=== PATIENT | male | born 1950 | race Caucasian/White ===

== ENCOUNTER 2017-05-01 18:16 | Emergency (ER) | payer OTHER ==
[~2017-05-01] VITALS: Ht 180.3 cm; Wt 84.0 kg
[~2017-05-01 18:16] MED LIST: ALBU.5I NEB; DIAZ2 PO; GLUCTAB PO; LIPI10TA PO; PRED10 PO; PRED20 PO; VARE1 PO; Z.0.OXYGEN INH
[2017-05-01 18:22] VITALS: BP 124/81; PULSE 91; RESP 20; TEMP 97.3; O2SAT 98
[2017-05-01] MEDS ORDERED: SODIUM CHLOR 0.9% 1000 ML INJ 1,000 ML IV SCH (18:36)
[2017-05-01] MEDS ORDERED: PRED5TAB PO (18:42)
[2017-05-01] MEDS ORDERED: ATOR1TAB18 PO (18:42)
[2017-05-01] MEDS ORDERED: ASPI81TA81 PO (18:42)
[2017-05-01] MEDS ORDERED: METF1000 PO (18:42)
[2017-05-01] MEDS ORDERED: LINA145C PO (18:42)
[2017-05-01] MEDS ORDERED: DIAZ5TAB PO (18:42)
[2017-05-01] MEDS ORDERED: DICY10CA12 PO (18:42)
[2017-05-01] MEDS ORDERED: ALBU.5I NEB (18:42)
[2017-05-01] MEDS ORDERED: FLUT1INH INH (18:44)
--- NOTE | 2017-05-01 18:44 | PD ---
HPI Chief Complaint: Flank/Kidney Pain Time Seen by Provider: 18:36 Travel History International Travel<30 days: No Contact w/Intl Traveler<30days: No Traveled to known affect area: No History of Present Illness HPI 66-year-old male presents with left-sided flank pain that feels similar to his prior kidney stones he's had before. He states his last one was in 2013. He states he had to have surgery 40 years ago when he had a stone and received a stent. He states he doesn't follow with a set urology specialist. Quality pain is sharp. Severity is severe. He denies specific modifying factors. He presents by ambulance. This is been over the past couple of days. PFSH Past Medical History Hx Anticoagulant Therapy: Yes (as 81mg) AAA: Yes (4 CM PER PT watching- had a MRA 2 months 02/2017 and was cleared) Arthritis: Yes (fingers,neck) Asthma: No Anxiety: Yes (PANIC ATTACKS) Depression: Yes Cardiovascular Problems: Yes High Cholesterol: Yes Chest Pain: Yes Congestive Heart Failure: No COPD: Yes Cerebrovascular Accident: No Diabetes: Yes (type 2) Patient Takes Glucophage: Yes Diminished Hearing: No Endocrine: Yes (kidneys) GERD: Yes (gas) Genitourinary: Yes Headaches: Yes Hypertension: Yes Kidney Stones: Yes Musculoskeletal: Yes Neurologic: No Psychiatric: Yes Reproductive: Yes Respiratory: Yes (copd with oxygen at home use) Immunizations Current: Yes Pneumonia: Yes Sleep Apnea: Yes Thyroid Disease: No Tetanus Vaccination: < 5 Years Influenza Vaccination: Yes Past Surgical History Abdominal Surgery: No Appendectomy: Yes Cardiac Surgery: No Ear Surgery: No Endocrine Surgery: No Eye Surgery: No Genitourinary Surgery: Yes (HAD LT URETER "STRETCHED AND KIDNEY STONES REMOVED (LEFT)) Gynecologic Surgery: No Neurologic Surgery: No Oral Surgery: No Thoracic Surgery: No Tonsillectomy: Yes Other Surgery: Yes (SURGERY) Social History Alcohol Use: No Tobacco Use: No (1 ppd cigs) Substance Use: No Allergies-Medications (Allergen,Severity, Reaction): Coded Allergies: No Known Allergies (Verified , 05/01/17) Reported Meds & Prescriptions Reported Meds & Active Scripts Active Reported [oxygen at home] 2-4 Liter KARINA.CANULA DIRECTED Breo Ellipta Inh (Fluticasone/Vilanterol) 100-25 Mcg/Act Inh 1 Puff INH DAILY Use daily at the same time. Diazepam 5 Mg Tab 5 Mg PO TID PRN Dicyclomine (Dicyclomine HCl) 10 Mg Cap 10 Mg PO QID PRN Linzess (Linaclotide) 145 Mcg Cap 145 Mcg PO DIRECTED PRN Atorvastatin (Atorvastatin Calcium) 80 Mg Tab 80 Mg PO HS Prednisone 5 Mg Tab 5 Mg PO HS Aspir-81 (Aspirin) 81 Mg Tabdr 1 Tab PO DAILY Metformin (Metformin HCl) 1,000 Mg Tab 1,000 Mg PO BIDPC With meals Albuterol Neb (Albuterol Sulfate) 2.5 Mg/0.5 Ml Neb 2.5 Mg NEB Q4HR NEB PRN Note: The Albuterol Sulfate Inhalation Solution is concentrated and must be diluted. Read complete instructions carefully before using. Review of Systems Except as stated in HPI: all other systems reviewed are Neg Physical Exam Narrative GENERAL: Well-nourished, well-developed patient. Uncomfortable SKIN: Warm and dry. HEAD: Normocephalic and atraumatic. EYES: No injection or drainage. ENT: No nasal drainage noted. NECK: Supple, trachea midline. CARDIOVASCULAR: Regular rate and rhythm RESPIRATORY: No increased effort. No accessory muscle use. GASTROINTESTINAL: Abdomen soft, tender left upper quadrant, nondistended. EXTREMITIES: No edema. NEUROLOGICAL: Awake and alert. Motor and sensory grossly within normal limits. Normal speech. Data Data Last Documented VS Vital Signs Date Time Temp Pulse Resp B/P Pulse Ox O2 Delivery O2 Flow Rate FiO2 05/01/17 19:00 18 97 Nasal Cannula 2 05/01/17 19:00 91 124/81 05/01/17 18:22 97.3 Orders Complete Blood Count With Diff (05/01/17 18:36) Comprehensive Metabolic Panel (05/01/17 18:36) Lipase (05/01/17 18:36) Urinalysis - C+S If Indicated (05/01/17 18:36) Ct Abd/Pel W/O Iv Contrast (05/01/17 18:36) Iv Access Insert/Monitor (05/01/17 18:36) Ecg Monitoring (05/01/17 18:36) Oximetry (05/01/17 18:36) NPO (05/01/17 18:36) Ondansetron Inj (Zofran Inj) (05/01/17 18:45) Sodium Chlor 0.9% 1000 Ml Inj (Ns 1000 M (05/01/17 18:36) Sodium Chloride 0.9% Flush (Ns Flush) (05/01/17 18:45) Ketorolac Inj (Toradol Inj) (05/01/17 18:45) MDM Medical Decision Making Medical Screen Exam Complete: Yes Emergency Medical Condition: Yes Medical Record Reviewed: Yes (past history confirmed) Differential Diagnosis Stone, pyelonephritis, pancreatitis, musculoskeletal Narrative Course Will check blood work, urinalysis, CT scan and dose with Toradol and reevaluate Physician Communication Physician Communication dr hayes to follow ed workup and reeval Kesha Palomares MD May 01, 2017 18:44
[2017-05-01] MEDS ORDERED: SODIUM CHLORIDE 0.9% FLUSH 10 ML FLUSH IV FLUSH PRN (18:45)
[2017-05-01] MEDS ORDERED: KETOROLAC TROMETHAMINE 30 MG/ML (IVP) VIAL IVP ONE (18:45)
[2017-05-01] MEDS ORDERED: ONDANSETRON HCL 4 MG/2 ML VIAL IVP ONE (18:45)
[2017-05-01] MEDS ORDERED: OXYGEN NAS.CANULA (18:46)
[2017-05-01 19:00] VITALS: BP 124/81; PULSE 91; RESP 18; O2SAT 97
[2017-05-01 19:02] LABS: AUTOMATED NEUTROPHIL # 10.5 TH/MM3 (1.8-7.7); BASOPHIL # 0.1 TH/MM3 (0-0.2); BASOPHIL % 0.7 % (0.0-2.0); EOSINOPHIL # 0.4 TH/MM3 (0-0.4); EOSINOPHIL % 3.2 % (0.0-4.0); HEMATOCRIT 40.1 % (39.0-51.0); LYMPH % 13.2 % (9.0-44.0); LYMPHOCYTE # 1.8 TH/MM3 (1.0-4.8); MEAN CELL VOLUME 85.6 FL (80.0-100.0); MEAN CORPUSCULAR HEMOGLOBIN 28.1 PG (27.0-34.0); MEAN CORPUSCULAR HGB CONC 32.8 % (32.0-36.0); MONO % 7.2 % (0.0-8.0); NEUT % 75.7 % (16.0-70.0); PLATELET COUNT 259 TH/MM3 (150-450); RED BLOOD COUNT 4.69 MIL/MM3 (4.50-5.90); RED CELL DISTRIBUTION WIDTH 13.6 % (11.6-17.2); WHITE BLOOD COUNT 13.8 TH/MM3 (4.0-11.0)
[2017-05-01 19:06] LABS: HEMO FLAGS DIFF FINAL
[2017-05-01 19:10] LABS: CHLORIDE 107 MEQ/L (98-107); POTASSIUM 3.7 MEQ/L (3.5-5.1); SODIUM (NA) 143 MEQ/L (136-145)
[2017-05-01 19:14] LABS: ANION GAP 7 MEQ/L (5-15); BICARBONATE 28.7 MEQ/L (21.0-32.0); BLOOD UREA NITROGEN 14 MG/DL (7-18)
[2017-05-01 19:16] LABS: ALT (GPT) 25 U/L (12-78); AST (GOT) 17 U/L (15-37)
[2017-05-01 19:17] LABS: GLOMERULAR FILTRATION RATE 92 ML/MIN (>89)
[2017-05-01 19:18] LABS: TOTAL BILIRUBIN ADULT 0.4 MG/DL (0.2-1.0)
--- NOTE | 2017-05-01 19:18 | PD ---
Physical Exam Date Seen by Provider: May 01, 2017 Time Seen by Provider: 19:14 Narrative accepted in transfer of care from Dr Palomares GENERAL: Well-developed well-nourished male in no acute distress no respiratory distress with supplemental oxygen in place with history of COPD. SKIN: Warm and dry. HEAD: Normocephalic. EYES: No scleral icterus. No injection or drainage. NECK: Supple, trachea midline. No JVD or lymphadenopathy. CARDIOVASCULAR: Regular rate and rhythm without murmurs, gallops, or rubs. RESPIRATORY: Breath sounds equal bilaterally. No accessory muscle use. GASTROINTESTINAL: Abdomen soft, mild left lower quadrant tenderness to direct palpation without guarding or rebound, nondistended. No palpable pulsatile mass. MUSCULOSKELETAL: No cyanosis, or edema. Bilaterally palpable dorsalis pedis pulses. BACK: Nontender without obvious deformity. Mild left-sided CVA tenderness. Data Data Last Documented VS Vital Signs Date Time Temp Pulse Resp B/P Pulse Ox O2 Delivery O2 Flow Rate FiO2 05/01/17 22:25 96 20 122/64 96 Nasal Cannula 2 05/01/17 18:22 97.3 Orders Complete Blood Count With Diff (05/01/17 18:36) Comprehensive Metabolic Panel (05/01/17 18:36) Lipase (05/01/17 18:36) Urinalysis - C+S If Indicated (05/01/17 18:36) Ct Abd/Pel W/O Iv Contrast (05/01/17 18:36) Iv Access Insert/Monitor (05/01/17 18:36) Ecg Monitoring (05/01/17 18:36) Oximetry (05/01/17 18:36) NPO (05/01/17 18:36) Ondansetron Inj (Zofran Inj) (05/01/17 18:45) Sodium Chlor 0.9% 1000 Ml Inj (Ns 1000 M (05/01/17 18:36) Sodium Chloride 0.9% Flush (Ns Flush) (05/01/17 18:45) Ketorolac Inj (Toradol Inj) (05/01/17 18:45) Type And Screen (05/01/17 19:46) Sodium Chlorid 0.9% 500 Ml Inj (Ns 500 M (05/01/17 20:00) Morphine Inj (Morphine Inj) (05/01/17 20:00) Morphine Inj (Morphine Inj) (05/01/17 20:00) Albuterol-Ipratropium Neb (Duoneb Neb) (05/01/17 20:30) Tamsulosin (Flomax) (05/01/17 21:30) Morphine Inj (Morphine Inj) (05/01/17 22:00) Urine Culture (05/01/17 22:15) Blood Culture (05/01/17 22:42) Ceftriaxone Inj (Rocephin Inj) (05/01/17 22:45) Labs Laboratory Tests Test 05/01/17 05/01/17 05/01/17 18:50 20:00 22:15 White Blood Count 13.8 TH/MM3 Red Blood Count 4.69 MIL/MM3 Hemoglobin 13.2 GM/DL Hematocrit 40.1 % Mean Corpuscular Volume 85.6 FL Mean Corpuscular Hemoglobin 28.1 PG Mean Corpuscular Hemoglobin 32.8 % Concent Red Cell Distribution Width 13.6 % Platelet Count 259 TH/MM3 Mean Platelet Volume 8.9 FL Neutrophils (%) (Auto) 75.7 % Lymphocytes (%) (Auto) 13.2 % Monocytes (%) (Auto) 7.2 % Eosinophils (%) (Auto) 3.2 % Basophils (%) (Auto) 0.7 % Neutrophils # (Auto) 10.5 TH/MM3 Lymphocytes # (Auto) 1.8 TH/MM3 Monocytes # (Auto) 1.0 TH/MM3 Eosinophils # (Auto) 0.4 TH/MM3 Basophils # (Auto) 0.1 TH/MM3 CBC Comment DIFF FINAL Differential Comment Sodium Level 143 MEQ/L Potassium Level 3.7 MEQ/L Chloride Level 107 MEQ/L Carbon Dioxide Level 28.7 MEQ/L Anion Gap 7 MEQ/L Blood Urea Nitrogen 14 MG/DL Creatinine 0.83 MG/DL Estimat Glomerular Filtration 92 ML/MIN Rate Random Glucose 128 MG/DL Calcium Level 9.0 MG/DL Total Bilirubin 0.4 MG/DL Aspartate Amino Transf 17 U/L (AST/SGOT) Alanine Aminotransferase 25 U/L (ALT/SGPT) Alkaline Phosphatase 89 U/L Total Protein 6.6 GM/DL Albumin 2.8 GM/DL Lipase 88 U/L Blood Type O POSITIVE Antibody Screen NEGATIVE Blood Bank Comment Urine Color YELLOW Urine Turbidity CLOUDY Urine pH 5.5 Urine Specific [place] 1.025 Urine Protein 30 mg/dL Urine Glucose (UA) NEG mg/dL Urine Ketones NEG mg/dL Urine Occult Blood LARGE Urine Nitrite NEG Urine Bilirubin NEG Urine Leukocyte Esterase TRACE Urine RBC 100-200 /hpf Urine WBC 6-8 /hpf Urine WBC Clumps OCC Urine Squamous Epithelial 0-5 /hpf Cells Urine Amorphous Sediment MOD Urine Bacteria FEW /hpf Microscopic Urinalysis Comment CULTURE INDICATED MDM Medical Record Reviewed: Yes Supervised Visit with JULIANA: No Interpretation(s) Last Impressions Abdomen/Pelvis CT 05/01/17 1836 Signed Impressions: Service Date/Time: Saturday, May 01, 2017 20:04 - CONCLUSION: 1. Left-sided obstructive uropathy with moderate left hydronephrosis. 3 mm calculus at the left UVJ and 1 mm calculus in left ureter at upper pelvis. Also 2-3 mm calculus within left renal pelvis. Additional small nonobstructing calculi in both kidneys. Small right renal cyst. 2. 4.4 cm infrarenal abdominal aortic aneurysm increased from 4 cm in 2013. Manjeet Palencia MD CBC & BMP Diagram 05/01/17 18:50 Vital Signs Date Time Temp Pulse Resp B/P Pulse Ox O2 Delivery O2 Flow Rate FiO2 05/01/17 20:55 94 20 111/69 97 Nasal Cannula 2 05/01/17 20:12 20 05/01/17 20:10 95 18 105/78 98 Nasal Cannula 2 05/01/17 19:55 18 05/01/17 19:00 18 97 Nasal Cannula 2 05/01/17 19:00 91 18 124/81 97 Nasal Cannula 2 05/01/17 18:30 87 18 05/01/17 18:22 97.3 91 20 124/81 98 Differential Diagnosis accepted in transfer of care from Dr Palomares Narrative Course accepted in transfer of care from Dr Palomares; follow up CT and patient disposition It is 9:25 PM patient is clinically improved after receiving morphine 2 mg IV as well as previously had received Zofran 4 mg IV and Toradol 30 mg IV; patient also received 500 cc bolus of normal saline. CT abdomen and pelvis is consistent with left-sided hydroureter with obstructive uropathy with a 3 mm UVJ stone also noted proximal ureter a 1 mm ureterolithiasis and 2 mm left lower pole nephrolithiasis. Patient has been informed of imaging results as well as CT imaging noncontrast identifies a 4.4 cm infrarenal abdominal aortic aneurysm this is increased 0.[address] abdomen and pelvis noncontrast performed in 2014; patient reports that he recently underwent an MRA of the abdomen and pelvis and was identified to have a 4 cm infrarenal abdominal aortic aneurysm. This is being followed. There is no other acute findings on imaging per reading radiologist. Patient has required a one-time nebulize treatment as it was time for his evening albuterol and reports that he has no respiratory complaints at this time. Patient reports his left lower quadrant discomfort as minimal. Patient will be given a one-time dose of Flomax 0.4 mg in the emergency department. Patient still has not provided a urine specimen. Will be given additional fluids and UA will to be sent. Refuses in/out cath. @ 22:15 PM patient finally able to produce urine specimen Diagnosis Primary Impression: Renal colic on left side Additional Impressions: Lower obstructive uropathy UTI (urinary tract infection) Qualified Code: N39.0 - Urinary tract infection with hematuria, site unspecified History of COPD H/O abdominal aortic aneurysm Referrals: Primary Care Physician 1 day follow up with Dr Briseno Urologist call for appointment bingo caller urologist Dr Hays Vascular Surgeon call for appointment Follow up with your vascular surgeon or dean of instruction vascular surgeon Dr Ng Patient Instructions: General Instructions, Narcotic given in the ED Additional Instruction: Increase fluid hydration Strain urine Continue current medications as presently prescribed Stop/discontinue tobacco use as this is contraindicated with history of COPD and vascular disease/AAA Follow-up with your primary care provider call office in a.m.; follow-up with your vascular surgeon regarding your aneurysm and follow-up with urology regarding kidney stones Take pain medication as prescribed as tolerated for pain greater than 5/10 in intensity; be aware this may impair judgment, delay reaction time, increased risk for fall, or affect your condition of constipation; also may interact with anxiety medication --start at half dose; may depress respirations. Take Flomax as prescribed daily; may lower blood pressure Takes Zofran as prescribed as needed for nausea or vomiting Complete course of antibiotic Return to the emergency department for any concerns or change in condition Monitor temperature every 4 hours with thermometer and take Tylenol/ acetaminophen every 4 hours for fever 100.4 F or greater Med/Other Pt SpecificInfo: Prescription(s) given Scripts Tamsulosin (Flomax)0.4 Mg Cap0.4 Mg PO HS #7 CAP Ref 0 Prov:Lotus Hamilton MD 05/01/17 Hydrocodone-Acetaminophen (Lortab)5-325 Mg Tab1 Tab PO Q6H PRN (PAIN) #12 TAB Ref 0 Prov:Lotus Hamilton MD 05/01/17 Ondansetron Odt (Zofran Odt)4 Mg Tab4 Mg SL Q6HR PRN (Nausea/Vomiting) #10 TAB Ref 0 Prov:Lotus Hamilton MD 05/01/17 Doxycycline Hyclate 100 Mg [id number] Mg PO BID #14 CAP Ref 0 Prov:Lotus Hamilton MD 05/01/17 Disposition: 01 DISCHARGE HOME Condition: Stable Lotus Hamilton MD May 01, 2017 19:18
[2017-05-01 19:19] LABS: ALKALINE PHOSPHATASE 89 U/L (45-117)
[2017-05-01] MEDS ORDERED: SODIUM CHLORID 0.9% 500 ML INJ 500 ML IV ONE (20:00)
[2017-05-01] MEDS ORDERED: MORPHINE SULFATE 4 MG/ML INJ IV PUSH ONE ×2 (20:00→21:45)
[2017-05-01] MEDS ORDERED: MORPHINE SULFATE 8 MG/ML INJ IV PUSH ONE ×2 (20:00→22:00)
[2017-05-01 20:10] VITALS: BP 105/78; PULSE 95; RESP 18; O2SAT 98
[2017-05-01] MEDS ORDERED: RESP: ALBUTEROL 2.5 MG/IPRATROPIUM 0.5 MG NEB (SCH) NEB ONE (20:30)
--- NOTE | 2017-05-01 20:50 | RADRPT ---
EXAM DATE/TIME: 05/01/2017 20:04 [facility] COMPARISON: No previous studies available for comparison. INDICATIONS : Left flank abdominal pain. ORAL CONTRAST: No oral contrast ingested. RADIATION DOSE: 20.06 CTDIvol (mGy) MEDICAL HISTORY : Renal calculi. Aneurysm, abdominal. Hypertension.Diabetes. SURGICAL HISTORY : None. ENCOUNTER: Initial ACUITY: 1 day PAIN SCALE: 9/10 LOCATION: Left flank TECHNIQUE: Volumetric scanning of the abdomen and pelvis was performed. Using automated exposure control and ad justment of the mA and/or kV according to patient size, radiation dose was kept as low as reasonably achievable to obtain optimal diagnostic quality images. DICOM format image data is available electro nically for review and comparison. FINDINGS: There is moderate left-sided hydronephrosis. There is an approximately 3 mm calculus at the left uret erovesical junction and a tiny 1 mm calculus in the left ureter within the upper pelvis. There is als o a 2 mm to 3 mm calculus in the dilated left renal pelvis which appears to be nonobstructing. There are additional 1-3 mm nonobstructing calculi in both kidneys. No hydronephrosis on the right. There is a 4.4 cm infrarenal abdominal aortic aneurysm increased from previous measurement of 4 cm in August 2014. No acute findings in the liver spleen adrenals or pancreas. No calcified gallstones. No bowel obstruc tion. No free fluid or free air. CONCLUSION: 1. Left-sided obstructive uropathy with moderate left hydronephrosis. 3 mm calculus at the left UVJ a nd 1 mm calculus in left ureter at upper pelvis. Also 2-3 mm calculus within left renal pelvis. Addit ional small nonobstructing calculi in both kidneys. Small right renal cyst. 2. 4.4 cm infrarenal abdominal aortic aneurysm increased from 4 cm in 2014. Manjeet Palencia MD on May 01, 2017 at 20:43 Board Certified Radiologist. This report was verified electronically.
[2017-05-01 20:55] VITALS: BP 111/69; PULSE 94; RESP 2; RESP 20; O2SAT 97
[2017-05-01] MEDS ORDERED: TAMSULOSIN HCL 0.4 MG CAP PO ONE (21:30)
[2017-05-01 22:25] VITALS: BP 122/64; PULSE 96; RESP 20; O2SAT 96
[2017-05-01 22:30] LABS: BLOOD, URINE LARGE (NEG); GLUCOSE,URINE NEG (NEG); KETONE, URINE NEG (NEG); NITRITE,URINE NEG (NEG); PH, URINE 5.5 (5.0-8.5)
[2017-05-01 22:38] LABS: URINE COLOR YELLOW (YELLW/STRAW)
[2017-05-01 22:39] LABS: BACTERIA, URINE FEW /hpf; COMMENT (UR) CULTURE INDICATED; CULTURE IF INDICATED CULTURE INDICATED; RBC, URINE 100-200 /hpf (0-3); SQUAMOUS EPITHELIAL CELL URINE 0-5 /hpf (0-5)
[2017-05-01] MEDS ORDERED: cefTRIAXone INJ 1,000 MG in SODIUM CHLORIDE 0.9% INJ 100 ML IV ONE (22:45)
[2017-05-01] MEDS ORDERED: TAMS5CAP PO (22:52)
[2017-05-01] MEDS ORDERED: DOXY100C PO (22:52)
[2017-05-01] MEDS ORDERED: ZOFR4TAB3 SL (22:52)
[2017-05-01] MEDS ORDERED: HYDR-3533 PO (22:52)
[2017-05-01 23:34] VITALS: BP 122/64
== END 2017-05-01 23:46 | disposition home or self-care (01) ==
LOC: PHED 18:16
DX: N23 Unspecified renal colic (principal); N13.8 Other obstructive and reflux uropathy; N39.0 Urinary tract infection, site not specified; R31.9 Hematuria, unspecified; I10 Essential (primary) hypertension; E11.9 Type 2 diabetes mellitus without complications; E78.00 Pure hypercholesterolemia, unspecified; Z79.82 Long term (current) use of aspirin; Z79.84 Long term (current) use of oral hypoglycemic drugs; Z87.09 Personal history of other diseases of the respiratory system; Z86.79 Personal history of other diseases of the circulatory system; Z87.39 Personal history of other diseases of the musculoskeletal system and connective tissue; Z87.442 Personal history of urinary calculi; Z86.59 Personal history of other mental and behavioral disorders; Z87.19 Personal history of other diseases of the digestive system; Z99.81 Dependence on supplemental oxygen
CPT/HCPCS: 74176; 80053; 81001; 83690; 85025; 86850; 86900; 86901; 87040; 87086; 94664; 96361; 96365; 96375; 96376; 99285; J0696; J1885; J2270; J2405; J7030; J7040

== ENCOUNTER 2018-07-13 17:04 | Inpatient (IN) ==
[2018-07-13] MEDS ORDERED: Magnesium Sulfate Inj 2 GM in Sodium Chlor 0.9% Inj 96 ML IV.SIG ONE (17:12)
--- NOTE | 2018-07-13 17:33 | XR ---
EXAM DATE: 07/13/2018 5:28 PM EDT AGE/SEX: 67 years / Male INDICATIONS: Respiratory disease. CLINICAL DATA: This is the patient's initial encounter. Patient reports that signs and symptoms have been present for 3 days and indicates a pain score of 0/10. MEDICAL/SURGICAL HISTORY: . Renal calculi. Aneurysm, abdominal. Hypertension. Diabetes. None. COMPARISON: [facility], CHEST SINGLE AP, 09/05/2015. . FINDINGS: 2 portable frontal views of the chest show bolus emphysematous changes. Some chronic interstitial ernie nge noted within the bases bilaterally. Lungs are hyper aerated. No infiltrates or effusions. Heart i s normal in size. Bony structures are unremarkable. CONCLUSION: Bullous emphysematous changes and chronic interstitial change. No acute cardiopulmonary disease. Electronically signed by: Morteza Mccoy MD 07/13/2018 5:32 PM EDT
[2018-07-13 17:36] LABS: ABG Base Excess -0.9 mmol/L (-2-2); ABG PCO2 36 mmHg (38-42); ABG PO2 131 mmHg (61-120)
--- NOTE | 2018-07-13 17:43 | ED ---
HPI General Chief complaint: Shortness of Breath/Dyspnea Stated complaint: Respitory Time Seen by Provider: 07/13/18 17:06 Source: patient, EMS and RN notes reviewed Mode of arrival: EMS Limitations: physical limitation (respiratory distress) History of Present Illness HPI narrative: 67yM presenting with respiratory distress. The patient has a history of COPD and has been short of breath for several days; he received a duoneb, albuterol neb, and solumedrol prior to arrival to the ED. The patient arrived to the ED in visible distress; further details of HPI are therefore limited. Related Data Home Medications Medication Instructions Recorded Confirmed aspirin [Aspirin Low Dose] 81 mg PO DAILY 07/13/18 07/13/18 atorvastatin 80 mg PO DAILY 07/13/18 07/13/18 diazepam 5 mg PO TID 07/13/18 07/13/18 dicyclomine 10 mg PO QID 07/13/18 07/13/18 linaclotide [Linzess] 145 mcg PO DAILY 07/13/18 07/13/18 metformin 1,000 mg PO BID 07/13/18 07/13/18 prednisone 10 mg PO DAILY 07/13/18 07/13/18 varenicline [Chantix] 1 mg PO BID 07/13/18 07/13/18 Allergies Allergy/AdvReac Type Severity Reaction Status Date / Time No Known Allergies Allergy Uncoded 05/01/17 18:27 Review of Systems ROS Unobtainable ROS Unobtainable: other (unobtainable due to respiratory distress requiring bipap) PMFSH History History Provided By: Patient Medical History Medical History COPD (chronic obstructive pulmonary disease) (Acute) Diabetes (Acute) HTN (hypertension) (Acute) Social History Social History Substance History: No History of Abuse Smoking Status: Former smoker Tobacco Type: Cigarettes How Often Do You Have a Drink Containing Alcohol: Never Recent Travel in [facility] within the Last 8 Weeks: No Recent Out of Country Travel within the Last 8 Weeks: No Exam Const General: acute distress and ill appearing [facility] Head: normocephalic and atraumatic Eyes General: appearance normal, both eyes and all related structures Pupils: PERRL Chest Chest: normal inspection of the chest Resp Other: Tachypneic to 30s, speaking in 2-3 word phrases, increased work of breathing with accessory muscle use and intercostal retractions Full-field expiratory wheezing bilaterally Cardio Rate: tachycardic Rhythm: regular rhythm GI Inspection: non-distended Palpation: soft and nontender Skin General: no rashes or lesions noted Neuro General: alert and awake Extrem Other: No lower extremity edema Psych Affect: normal affect Course Initial Documented Vital Signs Pulse Oximetry 98 07/13/18 17:16 Last Documented Vital Signs Temperature 98.1 F 07/13/18 17:31 Pulse Rate 138 H 07/13/18 17:31 Respiratory Rate 46 H 07/13/18 17:31 Blood Pressure 157/100 H 07/13/18 17:31 Pulse Oximetry 98 07/13/18 17:37 Critical Care Time Critical Care Time: Yes Total Critical Care Time: 32 Attestation: Total critical care time 32 minutes. This includes examining and stabilizing the patient, gathering a history from a source other than the patient (i.e., chart review, EMS), formulating a differential diagnosis, ordering and interpreting laboratory tests and EKG, ordering and interpreting radiology tests, discussing the patient's care with other providers ([facility]), management of respiratory distress via non-invasive ventilation, re-evaluation at frequent intervals, and documentation. Amount of time is separate from teaching, counseling the patient and/or family, and exclusive of procedures. Medical Decision Making MDM Narrative Medical decision making narrative: Assessment: 67yM presenting with respiratory distress Plan: Nebs, IV magnesium Patient already received steroids prior to arrival Bipap CXR EKG and monitor Labs, including ABG Addendum: Patient re-evaluated multiple times during his stay in the ED. He remains tachypneic but wheezing is improved. His HR remains in the 110s/ 120s and his resps are 30s/minute. X-ray shows no infiltrate, labs essentially unremarkable aside from elevated lactic acid (likely related to multiple neb treatments). This patient requires ICU level of care for respiratory distress and severe COPD exacerbation; he remains at high risk for respiratory fatigue/ failure. Case discussed with Dr. Begum. Patient understands and agrees with plan of care. Medical Screen Exam Complete: Yes Emergency Medical Condition: Yes Differential Diagnosis Differential Diagnosis: Differential diagnosis includes, but is not limited to: COPD exacerbation, respiratory failure, pneumonia, pleural effusion, ACS, sepsis Medical Records Medical records reviewed: Yes I reviewed the patient's medical records. Lab Data Lab results reviewed: Yes I reviewed the patient's lab results. Result diagrams: 07/13/18 17:17 07/13/18 17:17 Lab Results 07/13/18 07/13/18 07/13/18 Range/Units 17:15 17:17 17:17 WBC 11.1 H (4.0-11.0) th/mm3 RBC 4.94 (4.50-5.90) mil/mm3 Hgb 13.2 (13.0-17.0) gm/dL Hct 40.1 (39.0-51.0) % MCV 81.3 (80.0-100.0) fL MCH 26.7 L (27.0-34.0) pg MCHC 32.9 (32.0-36.0) % RDW 17.5 H (11.6-17.2) % Plt Count 245 (150-450) th/mm3 MPV 8.4 (7.0-11.0) fL Neut % (Auto) 88.9 H (16.0-70.0) % Lymph % (Auto) 5.0 L (9.0-44.0) % [place] % (Auto) 5.8 (0.0-8.0) % Eos % (Auto) 0.1 (0.0-4.0) % Baso % (Auto) 0.2 (0.0-2.0) % Neut # (Auto) 9.9 H (1.8-7.7) th/mm3 Lymph # (Auto) 0.6 L (1.0-4.8) th/mm3 [place] # (Auto) 0.6 (0.0-0.9) th/mm3 Eos # (Auto) 0.0 (0.0-0.4) th/mm3 Baso # (Auto) 0.0 (0.0-0.2) th/mm3 WBC Differential . Differential Comment Auto diff final Puncture Site Right radial Patient Temperature 98.6 O2 Saturation 97 (90-100) % ABG pH 7.43 H (7.380-7.420) ABG pCO2 36 L (38-42) mmHg ABG pO2 131 H (61-120) mmHg ABG HCO3 23 (22-26) mmol/L ABG O2 Content 18.7 (12.0-20.0) Vol % ABG Base Excess -0.9 (-2-2) mmol/L ABG Methemoglobin 0.3 (0-2) % Saurav Test Present Hemoglobin 13.5 (12.0-16.0) G/DL Carboxyhemoglobin 1.3 (0-4) % O2 Delivery Device Bipap Vent Setting [id number] Inspired O2 40 % Critical Value No Sodium 140 (136-145) meq/L Potassium 4.5 (3.5-5.1) meq/L Chloride 104 (98-107) meq/L Carbon Dioxide 24.9 (21.0-32.0) meq/L Anion Gap 11 (5-15) meq/L BUN 26 H (7-18) mg/dL Creatinine 0.93 (0.60-1.30) mg/dL Estimated GFR 81 L (>89) mL/min Random Glucose 193 H (74-106) mg/dL Lactic Acid (0.4-2.0) mmol/L Calcium 8.9 (8.5-10.1) mg/dL Magnesium 2.1 (1.5-2.5) mg/dL Total Bilirubin 0.3 (0.2-1.0) mg/dL AST 27 (15-37) U/L ALT 29 (12-78) U/L Alkaline Phosphatase 90 (45-117) U/L Troponin I Less than 0.02 L (0.02-0.05) ng/mL B-Natriuretic Peptide (0-100) pg/mL Total Protein 7.5 (6.4-8.2) g/dL Albumin 3.0 L (3.4-5.0) g/dL 07/13/18 07/13/18 Range/Units 17:17 17:17 WBC (4.0-11.0) th/mm3 RBC (4.50-5.90) mil/mm3 Hgb (13.0-17.0) gm/dL Hct (39.0-51.0) % MCV (80.0-100.0) fL MCH (27.0-34.0) pg MCHC (32.0-36.0) % RDW (11.6-17.2) % Plt Count (150-450) th/mm3 MPV (7.0-11.0) fL Neut % (Auto) (16.0-70.0) % Lymph % (Auto) (9.0-44.0) % [place] % (Auto) (0.0-8.0) % Eos % (Auto) (0.0-4.0) % Baso % (Auto) (0.0-2.0) % Neut # (Auto) (1.8-7.7) th/mm3 Lymph # (Auto) (1.0-4.8) th/mm3 [place] # (Auto) (0.0-0.9) th/mm3 Eos # (Auto) (0.0-0.4) th/mm3 Baso # (Auto) (0.0-0.2) th/mm3 WBC Differential Differential Comment Puncture Site Patient Temperature O2 Saturation (90-100) % ABG pH (7.380-7.420) ABG pCO2 (38-42) mmHg ABG pO2 (61-120) mmHg ABG HCO3 (22-26) mmol/L ABG O2 Content (12.0-20.0) Vol % ABG Base Excess (-2-2) mmol/L ABG Methemoglobin (0-2) % Saurav Test Hemoglobin (12.0-16.0) G/DL Carboxyhemoglobin (0-4) % O2 Delivery Device Vent Setting Inspired O2 % Critical Value Sodium (136-145) meq/L Potassium (3.5-5.1) meq/L Chloride (98-107) meq/L Carbon Dioxide (21.0-32.0) meq/L Anion Gap (5-15) meq/L BUN (7-18) mg/dL Creatinine (0.60-1.30) mg/dL Estimated GFR (>89) mL/min Random Glucose (74-106) mg/dL Lactic Acid 2.6 H (0.4-2.0) mmol/L Calcium (8.5-10.1) mg/dL Magnesium (1.5-2.5) mg/dL Total Bilirubin (0.2-1.0) mg/dL AST (15-37) U/L ALT (12-78) U/L Alkaline Phosphatase (45-117) U/L Troponin I (0.02-0.05) ng/mL B-Natriuretic Peptide 45 (0-100) pg/mL Total Protein (6.4-8.2) g/dL Albumin (3.4-5.0) g/dL Imaging Data Radiologist's impression: Chest X-Ray 07/13/18 17:09 CONCLUSION: Bullous emphysematous changes and chronic interstitial change. No acute cardiopulmonary disease. ECG Data Attestation: I personally reviewed and interpreted this ECG as follows: Interpretation: Rate: 132 BPM Rhythm: Sinus [place]: Normal Intervals: Complete RBBB, QTc 378 ms Q waves: None T waves: Inverted in V2-V4 ST segments: No obvious elevations or depressions Impression: Sinus tachycardia, no changes as compared to EKG from 01/15/2015. Discharge Plan Discharge Disposition Patient Disposition: 30 Still Patient Discharge Condition Condition: Serious Discharge Details Diagnosis: COPD with acute exacerbation, Acute respiratory distress, Acidosis, lactic Physicians Team ED Provider: Kaycee Lock Primary Care Provider: UNKNOWN, Attending Provider: Nico Begum Status ED Status: Admitted Patient
[2018-07-13 17:59] LABS: Baso % (Auto) 0.2 % (0.0-2.0); Eos % (Auto) 0.1 % (0.0-4.0); Hematocrit 40.1 % (39.0-51.0); Hemoglobin 13.2 gm/dL (13.0-17.0); Lymph # (Auto) 0.6 th/mm3 (1.0-4.8); Mean Corpuscular HGB Conc 32.9 % (32.0-36.0); Mean Corpuscular Hemoglobin 26.7 pg (27.0-34.0); Mean Corpuscular Volume 81.3 fL (80.0-100.0); Mean Platelet Volume 8.4 fL (7.0-11.0); Mono # (Auto) 0.6 th/mm3 (0.0-0.9); Mono % (Auto) 5.8 % (0.0-8.0); Neut # (Auto) 9.9 th/mm3 (1.8-7.7); Neut % (Auto) 88.9 % (16.0-70.0); Platelet Count 245 th/mm3 (150-450); Red Blood Count 4.94 mil/mm3 (4.50-5.90); Red Cell Distribution Width 17.5 % (11.6-17.2); White Blood Count 11.1 th/mm3 (4.0-11.0)
[2018-07-13 18:16] LABS: Alanine Aminotransferase 29 U/L (12-78); Anion Gap 11 meq/L (5-15); Aspartate Aminotransferase 27 U/L (15-37); Blood Urea Nitrogen 26 mg/dL (7-18); Calcium 8.9 mg/dL (8.5-10.1); Carbon Dioxide 24.9 meq/L (21.0-32.0); Chloride 104 meq/L (98-107); Glomerular Filtration Rate 81 mL/min (>89); Glucose,Random 193 mg/dL (74-106); Magnesium 2.1 mg/dL (1.5-2.5); Potassium 4.5 meq/L (3.5-5.1); Sodium 140 meq/L (136-145)
[2018-07-13 18:21] LABS: Alkaline Phosphatase 90 U/L (45-117); Total Protein 7.5 g/dL (6.4-8.2)
[2018-07-13] MEDS ORDERED: Bisacodyl 10 MG Supp RECTAL PRN (19:19)
[2018-07-13] MEDS ORDERED: Acetaminophen 325 MG Tablet PO PRN (19:19)
[2018-07-13] MEDS ORDERED: Dextrose 50% in Water 50 ML Vial IV.PUSH PRN (19:30)
--- NOTE | 2018-07-13 19:33 | P.HPCC ---
History of Present Illness Primary Care Physician: UNKNOWN History of Present Illness: 67-year-old male presents for an evaluation of respiratory distress. The patient has a history of COPD and has been short of breath for several days; he received a duoneb, albuterol neb, and solumedrol prior to arrival to the ED. The patient arrived to the ED in visible distress and was placed on the BiPAP with significant improvement. No additional history is available to obtain due to respiratory distress and facemask BiPAP. Inpatient Certification: I certify that the inpatient services were ordered in accordance with Medicare regulations governing the order. This includes certification that hospital inpatient services are reasonable and necessary and in the case of services not specified as inpatient-only under 42 CFR 419.22(n), that they are appropriately provided as inpatient services in accordance to with the 2-midnight benchmark under 43 CFR 412.3(e) Estimated Total Length of Stay (Days): 5 Plans for Post Hospital Care: Not yet determined Review of Systems unobtainable due to mental condition PMFSH - History History Provided By: Patient - Medical History Medical History: Medical History (Last Reviewed 07/13/18 @ 17:41 by Kaycee Lock DO) COPD (chronic obstructive pulmonary disease) Diabetes HTN (hypertension) - Tobacco History Tobacco Use In Past 30 Days: Yes Smoking Status: Former smoker Tobacco Type: Cigarettes - Alcohol History How Often Do You Have a Drink Containing Alcohol: Never - Substance Use History Substance History: No History of Abuse - Travel History Recent Travel in the [place] Within the Last 8 Weeks: No Recent Travel Out of the Country Within the Last 8 Weeks: No - Immunization History Tetanus Immunization: <5 Years Hx Influenza Vaccine This Season: No Medications and Allergies Active Medications: Active Medications Acetaminophen (Tylenol) 650 mg PO Q6H PRN PRN Reason: PAIN 1-10 AND/OR FEVER >101F Al Hydroxide/Mg Hydroxide (Milk Of Magnjaclyn Liq) 30 ml PO Q12H PRN PRN Reason: Mild Constipation Albuterol (Duoneb Neb (Prn)) 1 ampul NEB Q2HR NEB PRN PRN Reason: WHEEZING Albuterol (Duoneb Neb (Prn)) 1 ampul NEB Q4HR NEB EVGENY Aspirin (Ecotrin) 81 mg PO DAILY EVGENY Atorvastatin Calcium (Lipitor) 80 mg PO DAILY EVGENY Bisacodyl (Dulcolax Supp) 10 mg RECTAL DAILY PRN PRN Reason: SEVERE CONSITIPATION Chlorhexidine Gluconate (Chlorhexidine 2% Cloth) 3 pack TOPICAL DAILY@0400 EVGENY Stop: 07/19/18 03:59 Chlorhexidine Gluconate (Chlorhexidine 2% Cloth) 3 pack TOPICAL DAILY@0400 PRN PRN Reason: Extra cloth needed Stop: 07/19/18 03:59 Dextrose (D50w Vial) 50 ml IV.PUSH UNSCH PRN PRN Reason: PER HYPOGLYCEMIA PROTOCOL Diazepam (Valium) 5 mg PO TID [facility] Dicyclomine HCl (Bentyl) 10 mg PO QID EVGENY Famotidine (Pepcid Pf Inj) 20 mg IV.PUSH Q12HR EVGENY Glucagon (Glucagon Inj) 1 mg OTHER PRN PRN PRN Reason: for Hypoglycemia Protocol Heparin Sodium (Porcine) (Heparin Inj) 5,000 units SQ Q8H EVGENY Piperacillin/Tazobactam/Dextrose (Zosyn 4.5 Gm Premix) 4.5 gm in 100 mls @ 200 mls/hr IV.SIG Q6H VEGENY Azithromycin 500 mg/ Sodium (Chloride) 250 mls @ 250 mls/hr IV.SIG Q24H EVGENY Insulin Aspart (Novolog Insulin Correctional Sugar Inj) 0 unit SQ ACHS EVGENY; Protocol Insulin Detemir (Levemir Inj) 10 unit SQ HS [facility] Lactulose (Lactulose Liq) 30 ml PO DAILY PRN PRN Reason: SEVERE CONSITIPATION Methylprednisolone Sodium Succinate (Solumedrol Inj) 40 mg IV.PUSH Q8HR EVGENY Morphine Sulfate (Morphine Inj) 2 mg IV.PUSH Q2H PRN PRN Reason: PAIN SCALE 6 TO 10 Non-Formulary Medication (Linaclotide [Linzess]) 145 mcg PO DAILY [facility] Ondansetron HCl (Zofran Inj) 4 mg IV.PUSH Q6H PRN PRN Reason: NAUSEA OR VOMITING Senna/Docusate Sodium ([place]-Colace) 1 tab PO BID [facility] Sennosides (Senokot) 17.2 mg PO Q12H PRN PRN Reason: Moderate Constipation Sodium Chloride (Ns Flush) 2 ml IV.FLUSH BID [facility] Sodium Chloride (Ns Flush) 2 ml IV.FLUSH PRN PRN PRN Reason: FLUSH AFTER USING IV ACCESS Varenicline (Chantix) 1 mg PO BID [facility] Allergies Allergy/AdvReac Type Severity Reaction Status Date / Time No Known Allergies Allergy Verified 07/13/18 21:30 Home Medications Medication Instructions Recorded Confirmed Type aspirin [Aspirin Low Dose] 81 mg PO DAILY 07/13/18 07/13/18 History atorvastatin 80 mg PO DAILY 07/13/18 07/13/18 History diazepam 5 mg PO TID 07/13/18 07/13/18 History dicyclomine 10 mg PO QID 07/13/18 07/13/18 History linaclotide [Linzess] 145 mcg PO DAILY 07/13/18 07/13/18 History metformin 1,000 mg PO BID 07/13/18 07/13/18 History prednisone 10 mg PO DAILY 07/13/18 07/13/18 History varenicline [Chantix] 1 mg PO BID 07/13/18 07/13/18 History Results - Labs CBC & Chem 7: 07/13/18 17:17 07/13/18 17:17 Labs: Short CBC 07/13/18 Range/Units 17:17 WBC 11.1 H (4.0-11.0) th/mm3 Hgb 13.2 (13.0-17.0) gm/dL Hct 40.1 (39.0-51.0) % Plt Count 245 (150-450) th/mm3 BMP 07/13/18 17:17 Sodium 140 Potassium 4.5 Chloride 104 Carbon Dioxide 24.9 BUN 26 H Creatinine 0.93 Calcium 8.9 Cardiac Enzymes 07/13/18 Range/Units 17:17 Troponin I Less than 0.02 L (0.02-0.05) ng/mL Liver Function 07/13/18 Range/Units 17:17 Total Bilirubin 0.3 (0.2-1.0) mg/dL AST 27 (15-37) U/L ALT 29 (12-78) U/L Alkaline Phosphatase 90 (45-117) U/L Albumin 3.0 L (3.4-5.0) g/dL - Imaging Impressions Chest X-Ray 07/13/18 17:09 CONCLUSION: Bullous emphysematous changes and chronic interstitial change. No acute cardiopulmonary disease. Exam Vital signs: Vital Signs 07/13/18 17:16 07/13/18 17:18 07/13/18 17:28 Temperature Pulse Rate 134 H 130 H Respiratory Rate 34 H 26 H Blood Pressure Pulse Oximetry 98 07/13/18 17:31 07/13/18 17:37 Temperature 98.1 F Pulse Rate 138 H Respiratory Rate 46 H Blood Pressure 157/100 H Pulse Oximetry 98 98 Intake & Output 07/13/18 07/13/18 07/14/18 06:59 18:59 06:59 Weight 75.75 kg - Constitutional moderate distress - Routine HEENT Exam Head: Present: normocephalic, atraumatic Eye: Present: EOMI, PERRL, normal accommodation ENT: Present: mucous membranes moist - Routine Neck Exam Present: supple, full ROM. Absent: JVD, carotid bruit - Routine Respiratory Exam Present: rhonchi, wheezes. Absent: accessory muscle use, stridor, crackles - Routine Cardiovascular Exam Present: RRR, S1, S2 - Routine Abdominal Exam Present: soft, normoactive bowel sounds - Routine Extremities Exam Absent: cyanosis, clubbing, edema - Routine Skin Exam Present: intact. Absent: cyanosis, erythema - Routine Neurological Exam Present: alert, oriented X3, moving all extremities Septic Shock Reassessment Septic shock perfusion: reassessment completed Caprini VTE Risk Assessment Caprini VTE Risk Assessment: Moderate/High Risk (score >= 2) Caprini Risk Assessment Model: Point Value = 1 Point Value = 2 Point Value = 3 Point Value = 5 Age 41-60 Minor surgery BMI > 25 kg/m2 Swollen legs Varicose veins or History of unexplained or recurrent spontaneous Oral contraceptives or hormone replacement Sepsis (< 1 month) Serious lung disease, including pneumonia (< 1 month) Abnormal pulmonary function Acute myocardial infarction Congestive heart failure (< 1 month) History of inflammatory bowel disease Medical patient at bed rest Age 61-74 Arthroscopic surgery Major open surgery (> 45 min) Laparoscopic surgery (> 45 min) Malignancy Confined to bed (> 72 hours) Immobilizing plaster cast Central venous access Age >= 75 History of VTE Family history of VTE Factor V Leiden Prothrombin [id number] Lupus anticoagulant Anticardiolipin antibodies Elevated serum homocysteine Heparin-induced thrombocytopenia Other congenital or acquired thrombophilia Stroke (< 1 month) Elective arthroplasty Hip, pelvis, or leg fracture Acute spinal cord injury (< 1 month) Prophylaxis Regimen: Total Risk Factor Score Risk Level Prophylaxis Regimen 0-1 Low Early ambulation 2 Moderate Order ONE of the following: *Sequential Compression Device (SCD) *Heparin 5000 units SQ BID 3-4 Higher Order ONE of the following medications: *Heparin 5000 units SQ TID *Enoxaparin/Lovenox 40 mg SQ daily (WT < 150 kg, CrCl > 30 mL/min) *Enoxaparin/Lovenox 30 mg SQ daily (WT < 150 kg, CrCl > 10-29 mL/min) *Enoxaparin/Lovenox 30 mg SQ BID (WT < 150 kg, CrCl > 30 mL/min) AND/OR *Sequential Compression Device (SCD) 5 or more Highest Order ONE of the following medications: *Heparin 5000 units SQ TID (Preferred with Epidurals) *Enoxaparin/Lovenox 40 mg SQ daily (WT < 150 kg, CrCl > 30 mL/min) *Enoxaparin/Lovenox 30 mg SQ daily (WT < 150 kg, CrCl > 10-29 mL/min) *Enoxaparin/Lovenox 30 mg SQ BID (WT < 150 kg, CrCl > 30 mL/min) AND *Sequential Compression Device (SCD) Assessment and Plan - Assessment and Plan Plan: Respiratory failure -COPD exacerbation -DuoNeb scheduled and as needed -IV steroid -Pulmonary consultation -BiPAP as needed -O2 supply to keep sats above 92 -Broad-spectrum antibiotics -CT chest without contrast to evaluate for malignancy Diabetes mellitus -1800 ADA diet -Insulin sliding scale -Levemir at bedtime Anxiety -Diazepam Dyslipidemia -Atorvastatin Tobacco dependency -Chantix DVT GI prophylaxis -Teds SCDs -Subcu heparin -Pepcid 35 minutes of critical care
[2018-07-13] MEDS: Morphine Sulfate Inj 2 MG/ML Vial IV.PUSH PRN (20:56)
[2018-07-13] MEDS: Famotidine PF Inj 20 MG/2 ML Vial IV.PUSH SCH (20:56)
[2018-07-13] MEDS: Insulin Detemir Inj 1,000 UNIT/10 ML Vial SQ SCH (21:06)
[2018-07-13] MEDS: Insulin NovoLOG Aspart Correctional Sugar Inj SQ SCH (21:06)
[2018-07-13] MEDS: Senna/Docusate Sodium 8.6/50 MG Tablet PO SCH (21:10)
[2018-07-13] MEDS: Dicyclomine 10 MG Capsule PO SCH (21:10)
[2018-07-13] MEDS: Varenicline 1 MG Tablet PO SCH (21:10)
[2018-07-13] MEDS: MethylPREDNISolone Sod Succinate Inj 40 MG/ML Vial IV.PUSH SCH (21:13)
[2018-07-13] MEDS ORDERED: Azithromycin Inj 500 MG in Sodium Chlor 0.9% Inj 250 ML IV.SIG SCH (22:00)
[2018-07-13] MEDS: Heparin - SQ 10,000 UNITS/ML Vial SQ SCH (22:35)
[2018-07-13] MEDS: Piperacil/Tazo 4.5 GM Premix 4.5 GM/100 ML BAG IV.SIG SCH (22:38)
[2018-07-14] MEDS: Morphine Sulfate Inj 2 MG/ML Vial IV.PUSH PRN ×4 (01:08→22:43)
[2018-07-14 03:37] LABS: Baso % (Auto) 0.1 % (0.0-2.0); Hematocrit 35.3 % (39.0-51.0); Hemoglobin 11.4 gm/dL (13.0-17.0); Lymph # (Auto) 0.2 th/mm3 (1.0-4.8); Lymph % (Auto) 4.7 % (9.0-44.0); Mean Corpuscular HGB Conc 32.2 % (32.0-36.0); Mean Corpuscular Hemoglobin 26.2 pg (27.0-34.0); Mean Corpuscular Volume 81.4 fL (80.0-100.0); Mean Platelet Volume 8.4 fL (7.0-11.0); Mono # (Auto) 0.2 th/mm3 (0.0-0.9); Mono % (Auto) 3.7 % (0.0-8.0); Neut # (Auto) 4.3 th/mm3 (1.8-7.7); Neut % (Auto) 91.5 % (16.0-70.0); Platelet Count 213 th/mm3 (150-450); Red Blood Count 4.33 mil/mm3 (4.50-5.90); Red Cell Distribution Width 17.5 % (11.6-17.2); White Blood Count 4.7 th/mm3 (4.0-11.0)
[2018-07-14] MEDS ORDERED: Chlorhexidine Gluconate 2% 1 Pack (2 Cloths) TOPICAL PRN (04:00)
[2018-07-14] MEDS: Piperacil/Tazo 4.5 GM Premix 4.5 GM/100 ML BAG IV.SIG SCH ×4 (04:01→22:42)
[2018-07-14] MEDS: Chlorhexidine Gluconate 2% 1 Pack (2 Cloths) TOPICAL SCH (04:01)
[2018-07-14] MEDS: Heparin - SQ 10,000 UNITS/ML Vial SQ SCH ×3 (04:01→20:37)
[2018-07-14 04:06] LABS: Activated Partial Thrombo Time 28.6 sec (24.3-30.1); INR 0.9 Ratio; Prothrombin Time 9.6 sec (9.8-11.6)
[2018-07-14 04:29] LABS: Anion Gap 10 meq/L (5-15); Blood Urea Nitrogen 31 mg/dL (7-18); Calcium 8.3 mg/dL (8.5-10.1); Carbon Dioxide 26.1 meq/L (21.0-32.0); Chloride 104 meq/L (98-107); Glomerular Filtration Rate 81 mL/min (>89); Glucose,Random 264 mg/dL (74-106); Magnesium 2.7 mg/dL (1.5-2.5); Phosphorus 4.8 mg/dL (2.5-4.9); Potassium 4.7 meq/L (3.5-5.1); Sodium 140 meq/L (136-145)
[2018-07-14 04:30] LABS: Alanine Aminotransferase 26 U/L (12-78); Albumin 2.7 g/dL (3.4-5.0); Alkaline Phosphatase 77 U/L (45-117); Aspartate Aminotransferase 24 U/L (15-37); Total Protein 6.7 g/dL (6.4-8.2)
[2018-07-14] MEDS: MethylPREDNISolone Sod Succinate Inj 40 MG/ML Vial IV.PUSH SCH ×3 (06:20→22:42)
--- NOTE | 2018-07-14 07:46 | P.PNCC ---
Subjective Subjective Remarks/Hospital Course: 67-year-old male presents for an evaluation of respiratory distress. The patient has a history of COPD and has been short of breath for several days; he received a DuoNeb, albuterol neb, and solumedrol prior to arrival to the ED. The patient arrived to the ED in visible distress and was placed on the BiPAP with significant improvement. No additional history is available to obtain due to respiratory distress and facemask BiPAP. SUBJ 07/14: Lying in bed states shortness of breath has significantly improved. His oxygen saturation is an 86% but he has just taken off the nasal cannula. Air entry is diminished bilaterally. Objective Vital Signs / I&O: Vital Signs 07/13/18 17:16 07/13/18 17:18 07/13/18 17:28 Temperature Pulse Rate 134 H 130 H Respiratory Rate 34 H 26 H Blood Pressure Pulse Oximetry 98 07/13/18 17:31 07/13/18 17:37 07/13/18 20:00 Temperature 98.1 F Pulse Rate 138 H 102 H Respiratory Rate 46 H 17 Blood Pressure 157/100 H 109/71 Pulse Oximetry 98 98 100 07/13/18 20:09 07/13/18 21:00 07/13/18 21:27 Temperature Pulse Rate 115 H 103 H Respiratory Rate 27 H 17 20 Blood Pressure 107/73 Pulse Oximetry 99 100 07/13/18 21:45 07/13/18 22:25 07/13/18 23:54 Temperature Pulse Rate 98 H 93 H Respiratory Rate 17 18 Blood Pressure 112/76 Pulse Oximetry 96 99 97 07/14/18 00:00 07/14/18 01:10 07/14/18 02:00 Temperature 98.8 F Pulse Rate 98 H 92 H Respiratory Rate 26 H 21 Blood Pressure 101/57 L Pulse Oximetry 100 07/14/18 03:11 07/14/18 04:00 07/14/18 04:03 Temperature 97.9 F Pulse Rate 88 89 Respiratory Rate 16 21 20 Blood Pressure 111/64 Pulse Oximetry 96 07/14/18 06:00 Temperature Pulse Rate 89 Respiratory Rate Blood Pressure Pulse Oximetry Intake & Output 07/13/18 07/14/18 07/14/18 18:59 06:59 18:59 Intake Total 790 / 790 Output Total 475 / 475 Balance 315 / 315 Weight 75.75 kg 74.4 kg Intake: IV 550 / 550 Azithromycin Inj 500 MG In NS 250 / 250 Inj 250 ML @ 250 mls/hr IV.SIG Q24H EVGENY Rx#:[id number] Zosyn 4.5 GM Premix 4.5 gm In 200 / 200 100 ml @ 200 mls/hr IV.SIG Q6H EVGENY Rx#:[id number] Oral 240 / 240 Output: Urine 475 / 475 Other: # Voids 4 Weight On Admission 73.6 kg Result Diagrams: 07/14/18 03:04 07/14/18 03:04 Objective Remarks: - Constitutional No distress - Routine HEENT Exam Head: normocephalic, atraumatic Eye: EOMI, PERRL ENT: Oral cavity moist airway patent - Routine Neck Exam Supple, full ROM. No JVD, carotid bruit - Routine Respiratory Exam Air entry diminished bilaterally with mild expiratory wheezing No accessory muscle use, stridor, crackles - Routine Cardiovascular Exam RRR, S1, S2 - Routine Abdominal Exam soft, normoactive bowel sounds - Routine Extremities Exam No cyanosis, clubbing, edema - Routine Skin Exam Intact. - Routine Neurological Exam Alert, oriented X3, moving all extremities Assessment and Plan - Assessment and Plan Plan: Respiratory failure-improving COPD exacerbation -DuoNeb scheduled and as needed -IV steroid -Pulmonary consultation -BiPAP as needed -O2 supply to keep sats above 92 -Empiric antibiotics -CT chest without contrast to evaluate for malignancy ordered by Dr. Begum Diabetes mellitus -1800 ADA diet -Insulin sliding scale -Levemir at bedtime Anxiety -Diazepam Dyslipidemia -Atorvastatin Tobacco dependency -Chantix DVT GI prophylaxis -Teds SCDs -Subcu heparin -Pepcid PT OOB Consult hospitalist to assume care in a.m. transferred to [facility] with telemetry Level 2
[2018-07-14] MEDS: Insulin NovoLOG Aspart Correctional Sugar Inj SQ SCH ×4 (08:09→20:37)
[2018-07-14] MEDS: diazePAM 5 MG Tablet PO SCH ×3 (08:10→17:09)
[2018-07-14] MEDS: Famotidine PF Inj 20 MG/2 ML Vial IV.PUSH SCH ×2 (08:10→20:38)
[2018-07-14] MEDS: Varenicline 1 MG Tablet PO SCH ×2 (08:10→20:37)
[2018-07-14] MEDS: Senna/Docusate Sodium 8.6/50 MG Tablet PO SCH ×3 (08:11→20:38)
[2018-07-14] MEDS: Dicyclomine 10 MG Capsule PO SCH ×4 (08:11→20:37)
[2018-07-14] MEDS ORDERED: [UNRECOGNIZED DRUG - OTHER] PO SCH (09:00)
[2018-07-14] MEDS ORDERED: LINACLOTIDE 145 MCG PO SCH (09:00)
[2018-07-14 11:03] LABS: Bacteria,Urine Moderate /hpf; Bilirubin,Urine Negative (Negative); Clarity,Urine Cloudy (Clear); Color,Urine Red (Yellw/Straw); Glucose,Urine (UA) 500 or Greater mg/dL (Negative); Leukocyte Esterase,Urine Small (Negative); Nitrite,Urine Negative (Negative); Specific Gravity,Urine 1.026 (1.002-1.035); Squamous Epithelial Cell,Urine 3 /hpf (0-5); Uric Acid Crystals,Urine Few /hpf
--- NOTE | 2018-07-14 11:34 | CT ---
EXAM DATE: 07/14/2018 11:25 AM EDT AGE/SEX: 67 years / Male INDICATIONS: COPD, respiratory distress. CLINICAL DATA: This is the patient's initial encounter. Patient reports that signs and symptoms have been present for 1 day and indicates a pain score of 0/10. MEDICAL/SURGICAL HISTORY: Chronic obstructive pulmonary disease. Hypertension. None. RADIATION DOSE: 6.72 CTDI (mGy) COMPARISON: [facility], CTA CHEST W 3D RECON, 01/19/2011. . TECHNIQUE: Multiple contiguous axial images were obtained through the chest without contrast. Image s were obtained in suspended respiration using multiple row detector helical technique. Using automa lydia exposure control and adjustment of the mA and/or kV according to patient size, radiation dose was kept as low as reasonably achievable to obtain optimal diagnostic quality images. DICOM format imag e data is available electronically for review and comparison. FINDINGS: Lungs: Severe emphysematous changes are again noted. Noncalcified nodules are again noted within the lower lobes bilaterally and are stable. Bibasilar lower lobe patchiness is noted consistent with pos sible pneumonia. Mediastinum: There is good visualization of the great vessels of the middle mediastinum. No evidenc e of mediastinal or hilar adenopathy/mass. Coronary artery calcifications are noted. Pleurae: No evidence of focal thickening or pleural effusion. Axillae: Unremarkable. Bony Structures: Degenerative changes, scoliosis and mild chronic compression deformities are noted throughout the thoracic spine. Miscellaneous: The examination was extended to include the upper abdomen, and both adrenal glands ar e normal in size and configuration. CONCLUSION: 1. Stable noncalcified nodules within the lower lobes bilaterally. 2. Bibasilar lower lobe patchiness consistent with possible pneumonia. 3. Severe emphysematous changes bilaterally. 4. Coronary artery calcifications. 5. Degenerative changes, scoliosis and mild chronic compression deformities throughout the thoracic spine. Electronically signed by: Balwinder Acosta MD 07/14/2018 11:33 AM EDT
--- NOTE | 2018-07-14 18:48 | MB ---
cc: Bryon Slater MD DATE: 07/14/2018 REASON FOR CONSULTATION: COPD exacerbation. HISTORY OF PRESENT ILLNESS: The patient is a 67-year-old male with a known history of COPD, long heavy smoking history and smoked until the time of hospitalization. The patient had increasing shortness of breath for several days, which had become progressively worse despite using DuoNeb at home. The patient denies a history of fever, chills, hemoptysis. PAST MEDICAL HISTORY: COPD, diabetes mellitus and hypertension. SOCIAL HISTORY: Long smoking history, a pack a day for over 30 years up until time of hospitalization. Drinks alcohol socially. No TB. No industrial exposure. FAMILY HISTORY: Noncontributory. MEDICATIONS: Include: 1. DuoNeb. 2. Ecotrin. 3. Lipitor. 4. Zithromax. 5. Tazobactam. 6. Budesonide. 7. Solu-Medrol. ALLERGIES: NONE KNOWN TO MEDICATIONS. REVIEW OF SYSTEMS: A 12-point review of systems as per HPI and past history, otherwise negative. PHYSICAL EXAMINATION: GENERAL: The patient is alert. VITAL SIGNS: Temperature 98, pulse 80, respirations 18, blood pressure 130/72. LABORATORY DATA: White count 11,000, hemoglobin 13, hematocrit 40, platelets 245,000. Sodium 140, potassium 4.5, BUN 26, creatinine 0.9. Chest x-ray with emphysematous changes and chronic interstitial changes but no acute process. IMPRESSION: 1. Chronic obstructive pulmonary disease exacerbation. 2. Respiratory failure, on oxygen therapy. 3. Hypertension. 4. Tobacco abuse. 5. Pneumonia, suspect. PLAN: The patient will be maintained on oxygen therapy, bronchodilator therapy as well as antibiotic therapy. His CT scan of the chest is with suspicion of basilar pneumonia. We will follow his care along with you and depending on progress, proceed further. I do thank you for asking me to partake in Mr. Nelson's care. MD ALLY Gaxiola/kahlil , 03:50 PM , 03:58 PM
--- NOTE | 2018-07-14 19:07 | P.PNADD ---
Addendum to Inpatient Note Reason for Addendum: Additional Documentation Additional information: Patient complained of flank pain and dark urine today. UA shows gross hematuria. CT ordered, suspicious for nephrolithiasis based on history. Urology consult placed. Meanwhile, in need of BiPap this evening, so keeping him in ICU overnight. Continue COPD treatments.
[2018-07-14] MEDS: Insulin Detemir Inj 1,000 UNIT/10 ML Vial SQ SCH (20:37)
--- NOTE | 2018-07-14 20:41 | ECG ---
Date Performed: 07/14/2018 Time Performed: 01:24:30 PTAGE: 67 years EKG: Sinus rhythm Indeterminate axis Right bundle branch block Low QRS voltages in limb leads Abnormal ECG PREVIOUS TRACING : 07/13/2018 17.11 Compared to previous tracing, the sinus tachycardia and the fairly marked anteroseptal T-wave changes ar4e no longer evident. Clinical correlation is recommende d DOCTOR: Cynthia Dominguez Interpretating Date/Time 07/14/2018 20:41:13
--- NOTE | 2018-07-14 20:41 | ECG ---
Date Performed: 07/13/2018 Time Performed: 17:11:02 PTAGE: 67 years EKG: SINUS TACHYCARDIA INDETERMINATE AXIS RIGHT BUNDLE BRANCH BLOCK ABNORMAL ECG INTERPRETATION BASED ON A DEFAULT AGE OF 40 YEARS PREVIOUS TRACING : 01/15/2015 @00.12.38 Compared to previous tracing, the sinus tachycard ia is new. There has been an increase in the anterior T-wave changes and Myocardial ischemia cannot b e excluded. DOCTOR: Cynthia Dominguez Interpretating Date/Time 07/14/2018 20:40:11
--- NOTE | 2018-07-14 21:26 | CT ---
EXAM DATE: 07/14/2018 9:03 PM EDT AGE/SEX: 67 years / Male INDICATIONS: Left flank pain for one month. Hematuria. CLINICAL DATA: This is the patient's initial encounter. Patient reports that signs and symptoms have been present for 1 month and indicates a pain score of 6/10. MEDICAL/SURGICAL HISTORY: Diabetes. Chronic obstructive pulmonary disease. Hypertension. None . RADIATION DOSE: 10.69 CTDI (mGy) COMPARISON: [facility], CT ABDOMEN & PELVIS W/O CONTRAST, 05/01/2017. . TECHNIQUE: Multiple contiguous axial images were obtained through the abdomen. Images were obtained using multiple row detector helical technique. Using automated exposure control and adjustment of the mA and/or kV according to patient size, radiation dose was kept as low as reasonably achievable to o btain optimal diagnostic quality images. DICOM format image data is available electronically for rev iew and comparison. FINDINGS: There is patchy basilar airspace disease with peribronchial thickening and some distal airway disease There is a 14 mm calculus of the left ureteropelvic junction with mild left-sided hydronephrosis. No left ureteral calculi. No right-sided renal calculi or obstructive uropathy. Small right renal cysts. No acute findings in the visualized liver, spleen, adrenals or pancreas. 4.4 cm infrarenal abdominal aortic aneurysm is stable. No bowel obstruction. No free air or free fluid. No adenopathy. CONCLUSION: 1. Patchy basilar airspace disease with peribronchial thickening and distal airway disease. Differen tial diagnosis includes bronchopneumonia and aspiration. 2. 14 mm calculus at the left ureteropelvic junction with mild left hydronephrosis. No ureteral calc ernesto. 3. Stable 4.4 cm infrarenal abdominal aortic aneurysm. Electronically signed by: Manjeet Palencia MD 07/14/2018 9:25 PM EDT
[2018-07-15] MEDS: Piperacil/Tazo 4.5 GM Premix 4.5 GM/100 ML BAG IV.SIG SCH ×4 (04:25→22:30)
[2018-07-15] MEDS: Chlorhexidine Gluconate 2% 1 Pack (2 Cloths) TOPICAL SCH (04:25)
[2018-07-15] MEDS: Heparin - SQ 10,000 UNITS/ML Vial SQ SCH ×3 (04:25→21:06)
[2018-07-15] MEDS: MethylPREDNISolone Sod Succinate Inj 40 MG/ML Vial IV.PUSH SCH ×3 (05:33→21:18)
[2018-07-15] MEDS: Dicyclomine 10 MG Capsule PO SCH ×4 (08:36→21:05)
[2018-07-15] MEDS: diazePAM 5 MG Tablet PO SCH ×3 (08:37→18:17)
[2018-07-15] MEDS: Insulin NovoLOG Aspart Correctional Sugar Inj SQ SCH ×4 (08:37→21:09)
[2018-07-15] MEDS: Senna/Docusate Sodium 8.6/50 MG Tablet PO SCH ×2 (08:37→21:10)
[2018-07-15] MEDS: Varenicline 1 MG Tablet PO SCH ×2 (08:37→21:15)
[2018-07-15] MEDS: Famotidine PF Inj 20 MG/2 ML Vial IV.PUSH SCH ×2 (08:38→21:16)
--- NOTE | 2018-07-15 10:45 | P.PNIM ---
Subjective Interval history: Patient has 2 main complaints, shortness of breath which is improving slowly with treatment for COPD. And left flank pain with hematuria which is associated with a confirmed kidney stone, 14 mm, and the left kidney. Physical Exam Vital signs: Vital Signs 07/14/18 11:03 07/14/18 12:00 07/14/18 14:00 Temperature 97.9 F Pulse Rate 92 H 85 89 Respiratory Rate 17 25 H Blood Pressure 100/56 L Pulse Oximetry 94 L 07/14/18 14:26 07/14/18 16:00 07/14/18 17:08 Temperature 97.7 F Pulse Rate 74 91 H 89 Respiratory Rate 28 H 25 H 17 Blood Pressure 97/61 L Pulse Oximetry 96 07/14/18 18:00 07/14/18 18:09 07/14/18 19:49 Temperature Pulse Rate 97 H 95 H Respiratory Rate 18 Blood Pressure Pulse Oximetry 96 98 07/14/18 20:00 07/14/18 21:08 07/14/18 22:00 Temperature 98.0 F Pulse Rate 92 H 86 Respiratory Rate 19 22 Blood Pressure 107/73 Pulse Oximetry 96 07/14/18 22:06 07/14/18 22:23 07/14/18 22:45 Temperature Pulse Rate 89 Respiratory Rate 20 22 Blood Pressure Pulse Oximetry 100 07/15/18 00:00 07/15/18 01:09 07/15/18 02:00 Temperature 98.2 F Pulse Rate 81 82 82 Respiratory Rate 16 16 Blood Pressure 91/51 L Pulse Oximetry 95 07/15/18 04:00 07/15/18 05:12 07/15/18 06:00 Temperature 97.9 F Pulse Rate 79 84 77 Respiratory Rate 16 22 Blood Pressure 97/57 L Pulse Oximetry 96 07/15/18 08:00 07/15/18 08:11 07/15/18 10:25 Temperature 97.8 F Pulse Rate 80 89 104 H Respiratory Rate 17 23 16 Blood Pressure 106/62 Pulse Oximetry 98 94 L Intake & Output 07/14/18 07/15/18 07/15/18 18:59 06:59 18:59 Intake Total 440 / 440 710 / 710 100 / 100 Output Total 600 / 600 650 / 650 Balance -160 / -160 60 / 60 100 / 100 Weight 83.8 kg Intake: IV 200 / 200 350 / 350 100 / 100 Levaquin 750 mg Premix Inj 150 150 / 150 ML @ 100 mls/hr IV.SIG Q24H EVGENY Rx#:[id number] Zosyn 4.5 GM Premix 4.5 gm In 200 / 200 200 / 200 100 / 100 100 ml @ 200 mls/hr IV.SIG Q6H EVGENY Rx#:[id number] Oral 240 / 240 360 / 360 Output: Urine 600 / 600 650 / 650 Other: # Voids 6 4 # Bowel Movements 0 0 Narrative: GENERAL: AAOx3, uncomfortable secondary to pain and periodic dyspnea SKIN: Warm and dry. No rashes HEAD: Atruamtic, normocephalic. EYES: No scleral icterus. No injection or drainage. ENT: Moist mucous membranes, patent nares, no erythema of oropharynx. NECK: Supple, trachea midline. No JVD or lymphadenopathy. Normal thyroid. CARDIOVASCULAR: Borderline tachycardia. No murmurs, gallops, or rubs. RESPIRATORY: Breath sounds more clear than yesterday, better filling, still scattered wheezing and congestion. No accessory muscle use. GASTROINTESTINAL: Left flank pain. Abdomen soft, nondistended, normal active bowel sounds MUSCULOSKELETAL: No cyanosis, or edema. NEURO: CN II-XII grossly intact, no focal deficits, no slurring of speech Results - Labs CBC & Chem 7: 07/14/18 03:04 07/14/18 03:04 Laboratory Results - last 24 hr 07/14/18 07/14/18 07/14/18 10:30 12:01 17:02 POC Glucose 240 H 319 H Urine Color Red Urine Clarity Cloudy H Urine pH 6.0 Ur Specific [place] 1.026 Urine Protein 100 H Urine Glucose (UA) 500 or greater Urine Ketones Negative Urine Occult Blood Large H Urine Nitrate Negative Urine Bilirubin Negative Urine Urobilinogen Less than 2 Ur Leukocyte Esterase Small H Urine RBC Urine WBC Ur Squamous Epith Cells 3 Uric Acid Crystals Few H Urine Bacteria Moderate H Urine Yeast Moderate H Micro UA Comment Culture indicated Ur Microscopic Review Not Reportable Urine Culture Comments Culture indicated 07/14/18 07/15/18 20:29 08:30 POC Glucose 219 H 241 H Urine Color Urine Clarity Urine pH Ur Specific [place] Urine Protein Urine Glucose (UA) Urine Ketones Urine Occult Blood Urine Nitrate Urine Bilirubin Urine Urobilinogen Ur Leukocyte Esterase Urine RBC Urine WBC Ur Squamous Epith Cells Uric Acid Crystals Urine Bacteria Urine Yeast Micro UA Comment Ur Microscopic Review Urine Culture Comments Microbiology 07/13/18 21:10 Blood - Peripheral Aerobic Blood Culture - Preliminary No growth in 1 day 07/13/18 21:10 Blood - Peripheral Anaerobic Blood Culture - Preliminary No growth in 1 day 07/13/18 21:00 Blood - Peripheral Aerobic Blood Culture - Preliminary No growth in 1 day 07/13/18 21:00 Blood - Peripheral Anaerobic Blood Culture - Preliminary No growth in 1 day - Imaging Impressions Abdomen/Pelvis CT 07/14/18 00:00 CONCLUSION: 1. Patchy basilar airspace disease with peribronchial thickening and distal airway disease. Differential diagnosis includes bronchopneumonia and aspiration. 2. 14 mm calculus at the left ureteropelvic junction with mild left hydronephrosis. No ureteral calculi. 3. Stable 4.4 cm infrarenal abdominal aortic aneurysm. Chest CT 07/14/18 00:00 CONCLUSION: 1. Stable noncalcified nodules within the lower lobes bilaterally. 2. Bibasilar lower lobe patchiness consistent with possible pneumonia. 3. Severe emphysematous changes bilaterally. 4. Coronary artery calcifications. 5. Degenerative changes, scoliosis and mild chronic compression deformities throughout the thoracic spine. Assessment and Plan - Plan COPD exacerbation Patient presented in respiratory failure Continue oxygen, IV Solu-Medrol, scheduled duo nebs, budesonide nebs, Acapella, incentive spirometry CT showed pneumonia, stable nodules, chronic emphysema Continue BiPAP as needed Stable [facility] Nephrolithiasis Patient has a long-standing history of recurrent nephrolithiasis, multiple kidney stones in both kidneys He presented with gross hematuria, CT shows 14 mm stone in the ureteropelvic junction Urology consulted Diabetes mellitus Continue Levemir nightly Continue sliding-scale coverage with Accu-Cheks Continue 1800-calorie diabetic diet Anxiety, dyslipidemia, tobacco dependency Continue diazepam, atorvastatin, Chantix DVT Prophylaxis Heparin
[2018-07-15] MEDS ORDERED: Simethicone 80 MG Chew Tablet PO PRN (12:39)
--- NOTE | 2018-07-15 13:24 | P.CONURO ---
History of Present Illness Service: Urology Consult date: 07/15/18 Requesting Physician: Jasson Orozco Reason for Consult: Renal stone Primary Care Provider: UNKNOWN Family Provider: Do Cheryl Briseno Chief Complaint: Left flank pain, SOB History of Present Illness: 67y.o M came to ER yesterday with c/o SOB and exacerbation of COPD. He is feeling better today. Another c/o he had was a left flank pain and hematuria. UC pending CBC and BMP are stable urologywise. CT scan c/w 14mm left UPJ stone and mild hydro, Urology was consulted. Pt has h/o kidney stones in the past, some he passed, some had surgeries for. Currently besides hematuria he denies N/ V or fever. His pain is not currently bothering him, it comes and goes, when has it its 5-6/10. He saw a at [place], cannot tell his name, it was 6- 8mo/a, stone on a left was 8mm as per pt Review of Systems All other systems reviewed negative except as stated in HPI PMFSH - History History Provided By: Patient - Medical History Medical History: Medical History (Last Reviewed 07/15/18 @ 08:01 by [facility]) COPD (chronic obstructive pulmonary disease) Diabetes HTN (hypertension) - Tobacco History Second Hand Smoke Exposure: Yes Tobacco Use In Past 30 Days: Yes Smoking Status: Former smoker Tobacco Type: Cigarettes - Alcohol History How Often Do You Have a Drink Containing Alcohol: Never - Substance Use History Substance History: No History of Abuse - Travel History Recent Travel in the [place] Within the Last 8 Weeks: No Recent Travel Out of the Country Within the Last 8 Weeks: No - Immunization History Tetanus Immunization: <5 Years Hx Influenza Vaccine This Season: No Medications and Allergies Active Medications: Active Medications Acetaminophen (Tylenol) 650 mg PO Q6H PRN PRN Reason: PAIN 1-10 AND/OR FEVER >101F Last Admin: 07/14/18 20:38 Dose: 650 mg Al Hydroxide/Mg Hydroxide (Milk Of Magnesia Liq) 30 ml PO Q12H PRN PRN Reason: Mild Constipation Albuterol (Duoneb Neb (Prn)) 1 ampul NEB Q2HR NEB PRN PRN Reason: WHEEZING Last Admin: 07/15/18 12:40 Dose: 1 ampul Albuterol (Duoneb Neb (Valeri)) 1 ampul NEB Q4HR NEB [facility] Last Admin: 07/15/18 10:21 Dose: 1 ampul Aspirin (Ecotrin) 81 mg PO DAILY [facility] Last Admin: 07/15/18 08:36 Dose: 81 mg Atorvastatin Calcium (Lipitor) 80 mg PO DAILY [facility] Last Admin: 07/15/18 08:37 Dose: 80 mg Bisacodyl (Dulcolax Supp) 10 mg RECTAL DAILY PRN PRN Reason: SEVERE CONSITIPATION Budesonide (Pulmocort Respule Neb) 0.5 mg NEB Q12HR NEB [facility] Last Admin: 07/15/18 08:11 Dose: 0.5 mg Chlorhexidine Gluconate (Chlorhexidine 2% Cloth) 3 pack TOPICAL DAILY@0400 VALERI Stop: 07/19/18 03:59 Last Admin: 07/15/18 04:25 Dose: 3 pack Chlorhexidine Gluconate (Chlorhexidine 2% Cloth) 3 pack TOPICAL DAILY@0400 PRN PRN Reason: Extra cloth needed Stop: 07/19/18 03:59 Dextrose (D50w Vial) 50 ml IV.PUSH UNSCH PRN PRN Reason: PER HYPOGLYCEMIA PROTOCOL Diazepam (Valium) 5 mg PO TID [facility] Last Admin: 07/15/18 12:40 Dose: 5 mg Dicyclomine HCl (Bentyl) 10 mg PO QID [facility] Last Admin: 07/15/18 12:40 Dose: 10 mg Famotidine (Pepcid Pf Inj) 20 mg IV.PUSH Q12HR [facility] Last Admin: 07/15/18 08:38 Dose: 20 mg Glucagon (Glucagon Inj) 1 mg OTHER PRN PRN PRN Reason: for Hypoglycemia Protocol Heparin Sodium (Porcine) (Heparin Inj) 5,000 units SQ Q8H [facility] Last Admin: 07/15/18 12:40 Dose: 5,000 units Piperacillin/Tazobactam/Dextrose (Zosyn 4.5 Gm Premix) 4.5 gm in 100 mls @ 200 mls/hr IV.SIG Q6H [facility] Last Infusion: 07/15/18 10:26 Dose: Infused Levofloxacin/Dextrose (Levaquin 750 Mg Premix Inj) 150 mls @ 100 mls/hr IV.SIG Q24H [facility] Last Infusion: 07/14/18 21:29 Dose: Infused Insulin Aspart (Novolog Insulin Correctional Sugar Inj) 0 unit SQ ACHS [facility]; Protocol Last Admin: 07/15/18 12:02 Dose: 7 unit Insulin Detemir (Levemir Inj) 10 unit SQ [facility] Last Admin: 07/14/18 20:37 Dose: 10 unit Lactulose (Lactulose Liq) 30 ml PO DAILY PRN PRN Reason: SEVERE CONSITIPATION Methylprednisolone Sodium Succinate (Solumedrol Inj) 40 mg IV.PUSH Q8HR [facility] Last Admin: 07/15/18 05:33 Dose: 40 mg Morphine Sulfate (Morphine Inj) 2 mg IV.PUSH Q2H PRN PRN Reason: PAIN SCALE 6 TO 10 Last Admin: 07/14/18 22:43 Dose: 2 mg Ondansetron HCl (Zofran Inj) 4 mg IV.PUSH Q6H PRN PRN Reason: NAUSEA OR VOMITING Last Admin: 07/13/18 20:56 Dose: 4 mg Ptownmed ( Linaclotide [Linzess ] 145 Mcg) 0 each PO DAILY [facility] Senna/Docusate Sodium ([place]-Colace) 1 tab PO BID [facility] Last Admin: 07/15/18 08:37 Dose: 1 tab Sennosides (Senokot) 17.2 mg PO Q12H PRN PRN Reason: Moderate Constipation Simethicone (Mylicon Chew) 80 mg PO Q8H PRN PRN Reason: GAS RETENTION Last Admin: 07/15/18 13:07 Dose: 80 mg Sodium Chloride (Ns Flush) 2 ml IV.FLUSH BID [facility] Last Admin: 07/15/18 08:38 Dose: 2 ml Sodium Chloride (Ns Flush) 2 ml IV.FLUSH PRN PRN PRN Reason: FLUSH AFTER USING IV ACCESS Varenicline (Chantix) 1 mg PO BID [facility] Last Admin: 07/15/18 08:37 Dose: 1 mg Allergies Allergy/AdvReac Type Severity Reaction Status Date / Time No Known Allergies Allergy Verified 07/13/18 21:30 Home Medications Medication Instructions Recorded Confirmed Type aspirin [Aspirin Low Dose] 81 mg PO DAILY 07/13/18 07/13/18 History atorvastatin 80 mg PO DAILY 07/13/18 07/13/18 History diazepam 5 mg PO TID 07/13/18 07/13/18 History dicyclomine 10 mg PO QID 07/13/18 07/13/18 History linaclotide [Linzess] 145 mcg PO DAILY 07/13/18 07/13/18 History metformin 1,000 mg PO BID 07/13/18 07/13/18 History prednisone 10 mg PO DAILY 07/13/18 07/13/18 History varenicline [Chantix] 1 mg PO BID 07/13/18 07/13/18 History Physical Exam Vital Signs - 24 hr 07/14/18 14:00 07/14/18 14:26 07/14/18 16:00 Temperature 97.7 F Pulse Rate 89 74 91 H Respiratory Rate 28 H 25 H Blood Pressure 97/61 L Pulse Oximetry 96 07/14/18 17:08 07/14/18 18:00 07/14/18 18:09 Temperature Pulse Rate 89 97 H Respiratory Rate 17 Blood Pressure Pulse Oximetry 96 07/14/18 19:49 07/14/18 20:00 07/14/18 21:08 Temperature 98.0 F Pulse Rate 95 H 92 H Respiratory Rate 18 19 22 Blood Pressure 107/73 Pulse Oximetry 98 96 07/14/18 22:00 07/14/18 22:06 07/14/18 22:23 Temperature Pulse Rate 86 89 Respiratory Rate 20 Blood Pressure Pulse Oximetry 100 07/14/18 22:45 07/15/18 00:00 07/15/18 01:09 Temperature 98.2 F Pulse Rate 81 82 Respiratory Rate 22 16 16 Blood Pressure 91/51 L Pulse Oximetry 95 07/15/18 02:00 07/15/18 04:00 07/15/18 05:12 Temperature 97.9 F Pulse Rate 82 79 84 Respiratory Rate 16 22 Blood Pressure 97/57 L Pulse Oximetry 96 07/15/18 06:00 07/15/18 08:00 07/15/18 08:11 Temperature 97.8 F Pulse Rate 77 80 89 Respiratory Rate 17 23 Blood Pressure 106/62 Pulse Oximetry 98 94 L 07/15/18 10:00 07/15/18 10:25 07/15/18 12:00 Temperature Pulse Rate 97 H 104 H 100 H Respiratory Rate 16 19 Blood Pressure 106/60 Pulse Oximetry 96 Physical Exam: GENERAL: This is a well-nourished, well-developed patient, in no apparent distress. SKIN: No rashes, ecchymoses or lesions. Cool and dry. HEAD: Atraumatic. Normocephalic. No temporal or scalp tenderness. CARDIOVASCULAR: Regular rate and rhythm without murmurs, gallops, or rubs. RESPIRATORY: Clear to auscultation. Breath sounds equal bilaterally. No wheezes , rales, or rhonchi. GASTROINTESTINAL: Abdomen soft, non-tender, nondistended GENITOURINARY: Mild left CVAT. MUSCULOSKELETAL: Extremities without clubbing, cyanosis, or edema. NEUROLOGICAL: Awake and alert Laboratory Results - last 24 hr 07/14/18 07/14/18 07/15/18 17:02 20:29 08:30 POC Glucose 319 H 219 H 241 H 07/15/18 11:50 POC Glucose 281 H Microbiology 07/13/18 21:10 Aerobic Blood Culture - Preliminary Blood - Peripheral No growth in 2 days Anaerobic Blood Culture - Preliminary No growth in 2 days 07/13/18 21:00 Aerobic Blood Culture - Preliminary Blood - Peripheral No growth in 2 days Anaerobic Blood Culture - Preliminary No growth in 2 days Result Diagrams: 07/14/18 03:04 07/14/18 03:04 Imaging: ITS Impressions Chest X-Ray 07/13/18 17:09 CONCLUSION: Bullous emphysematous changes and chronic interstitial change. No acute cardiopulmonary disease. Abdomen/Pelvis CT 07/14/18 00:00 CONCLUSION: 1. Patchy basilar airspace disease with peribronchial thickening and distal airway disease. Differential diagnosis includes bronchopneumonia and aspiration. 2. 14 mm calculus at the left ureteropelvic junction with mild left hydronephrosis. No ureteral calculi. 3. Stable 4.4 cm infrarenal abdominal aortic aneurysm. Chest CT 07/14/18 00:00 CONCLUSION: 1. Stable noncalcified nodules within the lower lobes bilaterally. 2. Bibasilar lower lobe patchiness consistent with possible pneumonia. 3. Severe emphysematous changes bilaterally. 4. Coronary artery calcifications. 5. Degenerative changes, scoliosis and mild chronic compression deformities throughout the thoracic spine. Assessment and Plan - Plan 67y.o M with COPD exacerbation Also has Hematuria and left UPJ stone 14mm - Continue care as per primary team - No acute intervention needed - IV fluids, antbx. Pain control as per primary team - Due to his current respiratory status he is not a good candidate for stent placement - Needs to be stabilized and then see a as outpt for stone management after discharge - If his pain is difficult to control or he develops high fever, N/V, the best option will be to place a left nephrostomy by IR Discussed Condition With: Discussed with Dr Kendal CARDENAS attending who agrees with this plan
[2018-07-15] MEDS: Morphine Sulfate Inj 2 MG/ML Vial IV.PUSH PRN ×2 (14:48→20:35)
[2018-07-15] MEDS ORDERED: LORazepam 1 MG Tablet PO ONE (16:00)
--- NOTE | 2018-07-15 18:38 | P.PN ---
Subjective Interval history: ALERT LESS SOB Physical Exam Vital signs: Vital Signs 07/14/18 19:49 07/14/18 20:00 07/14/18 21:08 Temperature 98.0 F Pulse Rate 95 H 92 H Respiratory Rate 18 19 22 Blood Pressure 107/73 Pulse Oximetry 98 96 07/14/18 22:00 07/14/18 22:06 07/14/18 22:23 Temperature Pulse Rate 86 89 Respiratory Rate 20 Blood Pressure Pulse Oximetry 100 07/14/18 22:45 07/15/18 00:00 07/15/18 01:09 Temperature 98.2 F Pulse Rate 81 82 Respiratory Rate 22 16 16 Blood Pressure 91/51 L Pulse Oximetry 95 07/15/18 02:00 07/15/18 04:00 07/15/18 05:12 Temperature 97.9 F Pulse Rate 82 79 84 Respiratory Rate 16 22 Blood Pressure 97/57 L Pulse Oximetry 96 07/15/18 06:00 07/15/18 08:00 07/15/18 08:11 Temperature 97.8 F Pulse Rate 77 80 89 Respiratory Rate 17 23 Blood Pressure 106/62 Pulse Oximetry 98 94 L 07/15/18 10:00 07/15/18 10:25 07/15/18 12:00 Temperature 97.9 F Pulse Rate 97 H 104 H 100 H Respiratory Rate 16 19 Blood Pressure 106/60 Pulse Oximetry 96 07/15/18 12:40 07/15/18 14:00 07/15/18 15:05 Temperature Pulse Rate 99 H 99 H Respiratory Rate 19 22 Blood Pressure Pulse Oximetry 07/15/18 15:10 07/15/18 16:00 07/15/18 17:46 Temperature Pulse Rate 107 H 98 H 95 H Respiratory Rate 16 27 H 22 Blood Pressure 116/58 L Pulse Oximetry 95 07/15/18 17:47 Temperature Pulse Rate Respiratory Rate Blood Pressure Pulse Oximetry 94 L Intake & Output 07/14/18 07/15/18 07/15/18 18:59 06:59 18:59 Intake Total 440 / 440 710 / 710 640 / 640 Output Total 600 / 600 650 / 650 625 / 625 Balance -160 / -160 60 / 60 15 / 15 Weight 83.8 kg Intake: IV 200 / 200 350 / 350 200 / 200 Levaquin 750 mg Premix Inj 150 150 / 150 ML @ 100 mls/hr IV.SIG Q24H EVGENY Rx#:[id number] Zosyn 4.5 GM Premix 4.5 gm In 200 / 200 200 / 200 200 / 200 100 ml @ 200 mls/hr IV.SIG Q6H EVGENY Rx#:[id number] Oral 240 / 240 360 / 360 440 / 440 Output: Urine 600 / 600 650 / 650 625 / 625 Other: # Voids 6 4 4 # Bowel Movements 0 0 0 Narrative: GENERAL: AAOx3, uncomfortable secondary to pain and periodic dyspnea SKIN: Warm and dry. No rashes HEAD: Atruamtic, normocephalic. EYES: No scleral icterus. No injection or drainage. ENT: Moist mucous membranes, patent nares, no erythema of oropharynx. NECK: Supple, trachea midline. No JVD or lymphadenopathy. Normal thyroid. CARDIOVASCULAR: Borderline tachycardia. No murmurs, gallops, or rubs. RESPIRATORY: Breath sounds more clear than yesterday, better filling, still scattered wheezing and congestion. No accessory muscle use. GASTROINTESTINAL: Left flank pain. Abdomen soft, nondistended, normal active bowel sounds MUSCULOSKELETAL: No cyanosis, or edema. NEURO: CN II-XII grossly intact, no focal deficits, no slurring of speech Results - Labs CBC & Chem 7: 07/14/18 03:04 07/14/18 03:04 Laboratory Results - last 24 hr 07/14/18 07/15/18 07/15/18 20:29 08:30 11:50 POC Glucose 219 H 241 H 281 H 07/15/18 18:11 POC Glucose 229 H Microbiology 07/14/18 10:30 Clean Catch Urine Urine Culture - Preliminary No growth in 24 hours 07/13/18 21:10 Blood - Peripheral Aerobic Blood Culture - Preliminary No growth in 2 days 07/13/18 21:10 Blood - Peripheral Anaerobic Blood Culture - Preliminary No growth in 2 days 07/13/18 21:00 Blood - Peripheral Aerobic Blood Culture - Preliminary No growth in 2 days 07/13/18 21:00 Blood - Peripheral Anaerobic Blood Culture - Preliminary No growth in 2 days - Imaging Impressions Abdomen/Pelvis CT 07/14/18 00:00 CONCLUSION: 1. Patchy basilar airspace disease with peribronchial thickening and distal airway disease. Differential diagnosis includes bronchopneumonia and aspiration. 2. 14 mm calculus at the left ureteropelvic junction with mild left hydronephrosis. No ureteral calculi. 3. Stable 4.4 cm infrarenal abdominal aortic aneurysm. Assessment and Plan - Plan IMPRESSION COPD RESPIRATORY FAILURE PLAN O2 ANTIBX BRONCHODILATORS INCREASE ACTIVITY ? PNA
[2018-07-15] MEDS: Insulin Detemir Inj 1,000 UNIT/10 ML Vial SQ SCH (21:08)
[2018-07-16] MEDS: Chlorhexidine Gluconate 2% 1 Pack (2 Cloths) TOPICAL SCH (04:56)
[2018-07-16] MEDS: Piperacil/Tazo 4.5 GM Premix 4.5 GM/100 ML BAG IV.SIG SCH ×4 (04:57→21:16)
[2018-07-16] MEDS: Heparin - SQ 10,000 UNITS/ML Vial SQ SCH ×3 (05:01→20:13)
[2018-07-16] MEDS: MethylPREDNISolone Sod Succinate Inj 40 MG/ML Vial IV.PUSH SCH ×3 (05:02→21:16)
[2018-07-16 06:33] LABS: Anion Gap 9 meq/L (5-15); Blood Urea Nitrogen 24 mg/dL (7-18); Calcium 8.2 mg/dL (8.5-10.1); Carbon Dioxide 28.1 meq/L (21.0-32.0); Chloride 102 meq/L (98-107); Glomerular Filtration Rate Greater Than 89 mL/min (>89); Glucose,Random 205 mg/dL (74-106); Potassium 4.5 meq/L (3.5-5.1); Sodium 139 meq/L (136-145)
[2018-07-16 06:49] LABS: Hematocrit 35.2 % (39.0-51.0); Hemoglobin 11.6 gm/dL (13.0-17.0); Mean Corpuscular Hemoglobin 26.5 pg (27.0-34.0); Mean Corpuscular Volume 80.2 fL (80.0-100.0); Mean Platelet Volume 8.5 fL (7.0-11.0); Platelet Count 234 th/mm3 (150-450); Red Blood Count 4.39 mil/mm3 (4.50-5.90); Red Cell Distribution Width 17.1 % (11.6-17.2); White Blood Count 9.9 th/mm3 (4.0-11.0)
[2018-07-16] MEDS: Dicyclomine 10 MG Capsule PO SCH ×4 (08:32→20:12)
[2018-07-16] MEDS: Senna/Docusate Sodium 8.6/50 MG Tablet PO SCH ×2 (08:32→21:17)
[2018-07-16] MEDS: Varenicline 1 MG Tablet PO SCH ×2 (08:32→20:12)
[2018-07-16] MEDS: Insulin NovoLOG Aspart Correctional Sugar Inj SQ SCH ×4 (08:32→20:16)
[2018-07-16] MEDS: diazePAM 5 MG Tablet PO SCH ×3 (08:32→17:09)
[2018-07-16] MEDS: Famotidine PF Inj 20 MG/2 ML Vial IV.PUSH SCH ×2 (08:32→20:17)
[2018-07-16] MEDS: Morphine Sulfate Inj 2 MG/ML Vial IV.PUSH PRN ×4 (09:47→23:22)
--- NOTE | 2018-07-16 11:10 | P.PNIM ---
Subjective Interval history: 67-year-old male presents for an evaluation of respiratory distress. The patient has a history of COPD and has been short of breath for several days; he received a DuoNeb, albuterol neb, and solumedrol prior to arrival to the ED. The patient arrived to the ED in visible distress and was placed on the BiPAP with significant improvement. No additional history is available to obtain due to respiratory distress and facemask BiPAP. SUBJ 07/14: Lying in bed states shortness of breath has significantly improved. His oxygen saturation is an 86% but he has just taken off the nasal cannula. Air entry is diminished bilaterally. 07-14 TRANSFERRED TO OUR SERVICE Patient complained of flank pain and dark urine today. UA shows gross hematuria. CT ordered, suspicious for nephrolithiasis based on history. Urology consult placed. Meanwhile, in need of BiPap this evening, so keeping him in ICU overnight. Continue COPD treatments. 07-15 Patient has 2 main complaints, shortness of breath which is improving slowly with treatment for COPD. And left flank pain with hematuria which is associated with a confirmed kidney stone, 14 mm, and the left kidney. SEEN BY UROLOGY NO STENT AT THIS TIME ALSO STARTED ON LEVAQUIN FOR UTI COVERAGE 07-16 STILL ON 5LITERS BY NASAL CANULA WILL ADJUST MEDS DW PT AND RN HAS SOME FLANK PAIN ON LEFT SIDE ON AND OFF AM LABS PT AND OT Physical Exam Vital signs: Vital Signs 07/15/18 12:00 07/15/18 12:40 07/15/18 14:00 Temperature 97.9 F Pulse Rate 100 H 99 H 99 H Respiratory Rate 19 19 Blood Pressure 106/60 Pulse Oximetry 96 07/15/18 15:05 07/15/18 15:10 07/15/18 16:00 Temperature Pulse Rate 107 H 98 H Respiratory Rate 22 16 27 H Blood Pressure 116/58 L Pulse Oximetry 95 07/15/18 17:46 07/15/18 17:47 07/15/18 19:39 Temperature Pulse Rate 95 H 111 H Respiratory Rate 22 20 Blood Pressure Pulse Oximetry 94 L 07/15/18 20:00 07/15/18 23:48 07/16/18 00:00 Temperature 98.5 F 98.3 F Pulse Rate 108 H 93 H 95 H Respiratory Rate 24 18 20 Blood Pressure 132/77 128/84 Pulse Oximetry 94 L 96 07/16/18 03:36 07/16/18 04:00 07/16/18 07:00 Temperature 98.1 F Pulse Rate 89 86 92 H Respiratory Rate 16 16 24 Blood Pressure 102/56 L Pulse Oximetry 100 07/16/18 08:00 07/16/18 09:37 07/16/18 09:40 Temperature 94.5 F L Pulse Rate 88 107 H Respiratory Rate 20 Blood Pressure 105/68 Pulse Oximetry 96 98 Intake & Output 07/15/18 07/16/18 07/16/18 18:59 06:59 18:59 Intake Total 640 / 640 350 / 350 100 / 100 Output Total 625 / 625 400 / 400 Balance 15 15 350 / 350 -300 / -300 Intake: IV 200 / 200 350 / 350 100 / 100 Levaquin 750 mg Premix Inj 150 150 / 150 ML @ 100 mls/hr IV.SIG Q24H EVGENY Rx#:[id number] Zosyn 4.5 GM Premix 4.5 gm In 200 / 200 200 / 200 100 / 100 100 ml @ 200 mls/hr IV.SIG Q6H EVGENY Rx#:[id number] Oral 440 / 440 Output: Urine 625 / 625 400 / 400 Other: Post Void Residual 650 # Voids 4 # Bowel Movements 0 Narrative: GENERAL: AAOx3, uncomfortable secondary to pain and periodic dyspnea SKIN: Warm and dry. No rashes HEAD: Atruamtic, normocephalic. EYES: No scleral icterus. No injection or drainage. ENT: Moist mucous membranes, patent nares, no erythema of oropharynx. NECK: Supple, trachea midline. No JVD or lymphadenopathy. Normal thyroid. CARDIOVASCULAR: Borderline tachycardia. No murmurs, gallops, or rubs. RESPIRATORY: Breath sounds more clear than yesterday, better filling, still scattered wheezing and congestion. No accessory muscle use. GASTROINTESTINAL: Left flank pain. Abdomen soft, nondistended, normal active bowel sounds MUSCULOSKELETAL: No cyanosis, or edema. NEURO: CN II-XII grossly intact, no focal deficits, no slurring of speech Results - Labs CBC & Chem 7: 07/16/18 05:50 07/16/18 05:50 Laboratory Results - last 24 hr 07/15/18 07/15/18 07/15/18 11:50 18:11 20:33 WBC RBC Hgb Hct MCV MCH MCHC RDW Plt Count MPV Hematology Comments Sodium Potassium Chloride Carbon Dioxide Anion Gap BUN Creatinine Estimated GFR POC Glucose 281 H 229 H 232 H Random Glucose Calcium 07/16/18 07/16/18 07/16/18 05:50 05:50 08:08 WBC 9.9 RBC 4.39 L Hgb 11.6 L Hct 35.2 L MCV 80.2 MCH 26.5 L MCHC 33.0 RDW 17.1 Plt Count 234 MPV 8.5 Hematology Comments Sodium 139 Potassium 4.5 Chloride 102 Carbon Dioxide 28.1 Anion Gap 9 BUN 24 H Creatinine 0.79 Estimated GFR Greater than 89 POC Glucose 223 H Random Glucose 205 H Calcium 8.2 L Microbiology 07/13/18 21:10 Blood - Peripheral Aerobic Blood Culture - Preliminary No growth in 3 days 07/13/18 21:10 Blood - Peripheral Anaerobic Blood Culture - Preliminary No growth in 3 days 07/13/18 21:00 Blood - Peripheral Aerobic Blood Culture - Preliminary No growth in 3 days 07/13/18 21:00 Blood - Peripheral Anaerobic Blood Culture - Preliminary No growth in 3 days 07/14/18 10:30 Clean Catch Urine Urine Culture - Final <10,000 cfu/mL mixed gram positive octavia - no further workup - Imaging ITS Impressions Chest X-Ray 07/13/18 17:09 CONCLUSION: Bullous emphysematous changes and chronic interstitial change. No acute cardiopulmonary disease. Abdomen/Pelvis CT 07/14/18 00:00 CONCLUSION: 1. Patchy basilar airspace disease with peribronchial thickening and distal airway disease. Differential diagnosis includes bronchopneumonia and aspiration. 2. 14 mm calculus at the left ureteropelvic junction with mild left hydronephrosis. No ureteral calculi. 3. Stable 4.4 cm infrarenal abdominal aortic aneurysm. Chest CT 07/14/18 00:00 CONCLUSION: 1. Stable noncalcified nodules within the lower lobes bilaterally. 2. Bibasilar lower lobe patchiness consistent with possible pneumonia. 3. Severe emphysematous changes bilaterally. 4. Coronary artery calcifications. 5. Degenerative changes, scoliosis and mild chronic compression deformities throughout the thoracic spine. - Procedures NONE Assessment and Plan - Plan COPD exacerbation Patient presented in respiratory failure Continue oxygen, IV Solu-Medrol, scheduled duo nebs, budesonide nebs, Acapella, incentive spirometry ADD MUCINEX CT showed pneumonia, stable nodules, chronic emphysema Continue BiPAP as needed Stable for transfer to [facility] Nephrolithiasis Patient has a long-standing history of recurrent nephrolithiasis, multiple kidney stones in both kidneys He presented with gross hematuria, CT shows 14 mm stone in the ureteropelvic junction Urology consulted- NO STENT PER THEM AT THIS TIME ON LEVAQUIN Diabetes mellitus Continue Levemir nightly Continue sliding-scale coverage with Accu-Cheks Continue 1800-calorie diabetic diet Anxiety, dyslipidemia, tobacco dependency Continue diazepam, atorvastatin, Chantix DVT Prophylaxis Heparin Code Status: FULL CODE Discussed Condition With: RN AND PT AND CM Discharge Planning: ONCE BREATHING IMPROVES
[2018-07-16] MEDS: guaiFENesin 600 MG ER Tablet PO SCH ×2 (12:30→20:12)
--- NOTE | 2018-07-16 17:20 | P.PN ---
Subjective Interval history: ALERT NAD Physical Exam Vital signs: Vital Signs 07/15/18 17:46 07/15/18 17:47 07/15/18 19:39 Temperature Pulse Rate 95 H 111 H Respiratory Rate 22 20 Blood Pressure Pulse Oximetry 94 L 07/15/18 20:00 07/15/18 23:48 07/16/18 00:00 Temperature 98.5 F 98.3 F Pulse Rate 108 H 93 H 95 H Respiratory Rate 24 18 20 Blood Pressure 132/77 128/84 Pulse Oximetry 94 L 96 07/16/18 03:36 07/16/18 04:00 07/16/18 07:00 Temperature 98.1 F Pulse Rate 89 86 92 H Respiratory Rate 16 16 24 Blood Pressure 102/56 L Pulse Oximetry 100 07/16/18 08:00 07/16/18 09:37 07/16/18 09:40 Temperature 94.5 F L Pulse Rate 88 107 H Respiratory Rate 20 Blood Pressure 105/68 Pulse Oximetry 96 98 07/16/18 12:00 07/16/18 12:07 07/16/18 15:19 Temperature 97.8 F Pulse Rate 105 H 96 H 96 H Respiratory Rate 20 16 16 Blood Pressure 140/74 Pulse Oximetry 99 07/16/18 16:00 07/16/18 16:15 Temperature 97.9 F Pulse Rate 94 H Respiratory Rate 16 18 Blood Pressure 96/60 L Pulse Oximetry 99 Intake & Output 07/15/18 07/16/18 07/16/18 18:59 06:59 18:59 Intake Total 640 / 640 350 / 350 100 / 100 Output Total 625 / 625 400 / 400 Balance 350 / 350 -300 / -300 Intake: IV 200 / 200 350 / 350 100 / 100 Levaquin 750 mg Premix Inj 150 150 / 150 ML @ 100 mls/hr IV.SIG Q24H EVGENY Rx#:[id number] Zosyn 4.5 GM Premix 4.5 gm In 200 / 200 200 / 200 100 / 100 100 ml @ 200 mls/hr IV.SIG Q6H EVGENY Rx#:[id number] Oral 440 / 440 Output: Urine 625 / 625 400 / 400 Other: Post Void Residual 650 # Voids 4 # Bowel Movements 0 Narrative: GENERAL: AAOx3, uncomfortable secondary to pain and periodic dyspnea SKIN: Warm and dry. No rashes HEAD: Atruamtic, normocephalic. EYES: No scleral icterus. No injection or drainage. ENT: Moist mucous membranes, patent nares, no erythema of oropharynx. NECK: Supple, trachea midline. No JVD or lymphadenopathy. Normal thyroid. CARDIOVASCULAR: Borderline tachycardia. No murmurs, gallops, or rubs. RESPIRATORY: Breath sounds more clear than yesterday, better filling, still scattered wheezing and congestion. No accessory muscle use. GASTROINTESTINAL: Left flank pain. Abdomen soft, nondistended, normal active bowel sounds MUSCULOSKELETAL: No cyanosis, or edema. NEURO: CN II-XII grossly intact, no focal deficits, no slurring of speech Results - Labs CBC & Chem 7: 07/16/18 05:50 07/16/18 05:50 Laboratory Results - last 24 hr 07/15/18 07/15/18 07/16/18 18:11 20:33 05:50 WBC 9.9 RBC 4.39 L Hgb 11.6 L Hct 35.2 L MCV 80.2 MCH 26.5 L MCHC 33.0 RDW 17.1 Plt Count 234 MPV 8.5 Hematology Comments Sodium Potassium Chloride Carbon Dioxide Anion Gap BUN Creatinine Estimated GFR POC Glucose 229 H 232 H Random Glucose Calcium 07/16/18 07/16/18 07/16/18 05:50 08:08 11:04 WBC RBC Hgb Hct MCV MCH MCHC RDW Plt Count MPV Hematology Comments Sodium 139 Potassium 4.5 Chloride 102 Carbon Dioxide 28.1 Anion Gap 9 BUN 24 H Creatinine 0.79 Estimated GFR Greater than 89 POC Glucose 223 H 190 H Random Glucose 205 H Calcium 8.2 L 07/16/18 16:19 WBC RBC Hgb Hct MCV MCH MCHC RDW Plt Count MPV Hematology Comments Sodium Potassium Chloride Carbon Dioxide Anion Gap BUN Creatinine Estimated GFR POC Glucose 302 H Random Glucose Calcium Microbiology 07/13/18 21:10 Blood - Peripheral Aerobic Blood Culture - Preliminary No growth in 3 days 07/13/18 21:10 Blood - Peripheral Anaerobic Blood Culture - Preliminary No growth in 3 days 07/13/18 21:00 Blood - Peripheral Aerobic Blood Culture - Preliminary No growth in 3 days 07/13/18 21:00 Blood - Peripheral Anaerobic Blood Culture - Preliminary No growth in 3 days 07/14/18 10:30 Clean Catch Urine Urine Culture - Final <10,000 cfu/mL mixed gram positive octavia - no further workup - Procedures NONE Assessment and Plan - Plan IMPRESSION COPD RESPIRATORY FAILURE PLAN O2 ANTIBX BRONCHODILATORS INCREASE ACTIVITY
--- NOTE | 2018-07-16 18:24 | CT ---
EXAM DATE: 07/16/2018 6:18 PM EDT AGE/SEX: 67 years / Male INDICATIONS: Shortness of breath, atelectasis. CLINICAL DATA: This is the patient's subsequent encounter. Patient reports that signs and symptoms h ave been present for 3 days and indicates a pain score of 2/10. MEDICAL/SURGICAL HISTORY: Chronic obstructive pulmonary disease. Diabetes. Hypertension. None. RADIATION DOSE: 7.44 CTDI (mGy) COMPARISON: [facility] [place], CT CHEST W/O CONTRAST, 07/14/2018. . TECHNIQUE: Multiple contiguous axial images were obtained through the chest without contrast. Image s were obtained in suspended respiration using multiple row detector helical technique. Using automa lydia exposure control and adjustment of the mA and/or kV according to patient size, radiation dose was kept as low as reasonably achievable to obtain optimal diagnostic quality images. DICOM format imag e data is available electronically for review and comparison. FINDINGS: Lungs: Severe centrilobular emphysema. There is scarring in the posterior right upper lobe. Patchy i nfiltrates right lower lobe. Similar densities but to a lesser degree in the left lower lobe. Left lo wer lobe pulmonary nodule seen abutting the lateral pleura measuring 6 mm. There is also some subsegm ental atelectasis in the right lower lobe anteriorly. Mediastinum: There is good visualization of the great vessels of the middle mediastinum. No evidenc e of mediastinal or hilar adenopathy/mass. Extensive coronary artery calcifications. Pleurae: No evidence of focal thickening or pleural effusion. Axillae: Unremarkable. Bony Structures: Unremarkable. Miscellaneous: The examination was extended to include the upper abdomen, and both adrenal glands ar e normal in size and configuration. CONCLUSION: 1. Bibasilar patchy infiltrates greater right lower lobe, not significantly changed. There is also s ome new atelectasis in the right lower lobe anteriorly compared to previous study. 2. 6 mm nodule left lower lobe. 3. Coronary artery calcifications. 4. Severe emphysema. Electronically signed by: Papa Matt MD 07/16/2018 6:23 PM EDT
[2018-07-16] MEDS: Insulin Detemir Inj 1,000 UNIT/10 ML Vial SQ SCH (20:15)
[2018-07-17] MEDS: Piperacil/Tazo 4.5 GM Premix 4.5 GM/100 ML BAG IV.SIG SCH ×4 (03:02→23:23)
[2018-07-17] MEDS: Morphine Sulfate Inj 2 MG/ML Vial IV.PUSH PRN ×3 (03:02→20:03)
[2018-07-17] MEDS: Chlorhexidine Gluconate 2% 1 Pack (2 Cloths) TOPICAL SCH (04:01)
[2018-07-17] MEDS: MethylPREDNISolone Sod Succinate Inj 40 MG/ML Vial IV.PUSH SCH ×3 (05:39→22:36)
[2018-07-17] MEDS: Heparin - SQ 10,000 UNITS/ML Vial SQ SCH ×3 (05:39→20:02)
[2018-07-17 06:10] LABS: Baso % (Auto) 0.2 % (0.0-2.0); Hematocrit 33.2 % (39.0-51.0); Hemoglobin 10.8 gm/dL (13.0-17.0); Lymph # (Auto) 0.4 th/mm3 (1.0-4.8); Lymph % (Auto) 6.2 % (9.0-44.0); Mean Corpuscular HGB Conc 32.5 % (32.0-36.0); Mean Corpuscular Hemoglobin 26.1 pg (27.0-34.0); Mean Corpuscular Volume 80.2 fL (80.0-100.0); Mean Platelet Volume 8.1 fL (7.0-11.0); Mono # (Auto) 0.5 th/mm3 (0.0-0.9); Mono % (Auto) 6.8 % (0.0-8.0); Neut # (Auto) 6.2 th/mm3 (1.8-7.7); Neut % (Auto) 86.8 % (16.0-70.0); Platelet Count 237 th/mm3 (150-450); Red Blood Count 4.14 mil/mm3 (4.50-5.90); Red Cell Distribution Width 16.9 % (11.6-17.2); White Blood Count 7.2 th/mm3 (4.0-11.0)
[2018-07-17 06:56] LABS: Alanine Aminotransferase 31 U/L (12-78); Albumin 2.6 g/dL (3.4-5.0); Alkaline Phosphatase 58 U/L (45-117); Anion Gap 8 meq/L (5-15); Aspartate Aminotransferase 22 U/L (15-37); Blood Urea Nitrogen 24 mg/dL (7-18); Calcium 8.6 mg/dL (8.5-10.1); Carbon Dioxide 31.1 meq/L (21.0-32.0); Chloride 100 meq/L (98-107); Glomerular Filtration Rate Greater Than 89 mL/min (>89); Glucose,Random 206 mg/dL (74-106); Magnesium 2.1 mg/dL (1.5-2.5); Phosphorus 2.6 mg/dL (2.5-4.9); Potassium 4.4 meq/L (3.5-5.1); Sodium 139 meq/L (136-145); Total Protein 6.4 g/dL (6.4-8.2)
[2018-07-17] MEDS: Dicyclomine 10 MG Capsule PO SCH ×4 (08:11→20:01)
[2018-07-17] MEDS: guaiFENesin 600 MG ER Tablet PO SCH ×2 (08:11→20:00)
[2018-07-17] MEDS: diazePAM 5 MG Tablet PO SCH ×4 (08:12→23:23)
[2018-07-17] MEDS: Senna/Docusate Sodium 8.6/50 MG Tablet PO SCH ×2 (08:12→20:00)
[2018-07-17] MEDS: Varenicline 1 MG Tablet PO SCH ×2 (08:12→20:01)
[2018-07-17] MEDS: Famotidine PF Inj 20 MG/2 ML Vial IV.PUSH SCH ×2 (08:12→20:01)
[2018-07-17] MEDS: Insulin NovoLOG Aspart Correctional Sugar Inj SQ SCH ×4 (08:12→22:35)
--- NOTE | 2018-07-17 13:18 | P.PNIM ---
Subjective Interval history: Mr. Nelson was mildly tachycardic (HR 95-100 bpm) with intermittent mild HTN overnight. Per nursing staff, patient's daughter called reporting multiple concerns about patient's home environment. Patient reports that he is feeling better somewhat but still has shortness of breath. He has some cough but not much. Patient uses 3 L O2 via NC at night. He reports knowledge of his poor respiratory function and sometimes worries that he may not sleep through the night. Patient reports some poor mood from his brother passing away and the passing of his previously; he is not sure whether he may want to try a medication. Patient acknowledges that his daughter wants him to stay at the hospital. He states that he has a Pulmonology appt next week. He had some recent pain which he associated with renal stone which recently resolved; he states it is intermittent. No reported chest pain or bowel abnormalities. Physical Exam Vital signs: Vital Signs 07/16/18 15:19 07/16/18 16:00 07/16/18 16:15 Temperature 97.9 F Pulse Rate 96 H 94 H Respiratory Rate 16 16 18 Blood Pressure 96/60 L Pulse Oximetry 99 07/16/18 19:00 07/16/18 19:56 07/16/18 20:00 Temperature 98.2 F Pulse Rate 96 H 96 H Respiratory Rate 24 18 Blood Pressure 125/68 Pulse Oximetry 100 100 07/16/18 23:46 07/17/18 00:00 07/17/18 01:00 Temperature Pulse Rate 81 74 90 Respiratory Rate 20 18 Blood Pressure 140/69 Pulse Oximetry 95 07/17/18 04:00 07/17/18 04:20 07/17/18 07:46 Temperature 97.6 F Pulse Rate 92 H 90 86 Respiratory Rate 19 20 18 Blood Pressure 105/65 Pulse Oximetry 100 98 07/17/18 08:27 07/17/18 08:50 07/17/18 11:22 Temperature 97.6 F Pulse Rate 91 H 89 95 H Respiratory Rate 20 18 Blood Pressure 131/85 Pulse Oximetry 100 07/17/18 12:24 Temperature 97.4 F L Pulse Rate 100 H Respiratory Rate 20 Blood Pressure 123/82 Pulse Oximetry 93 L Intake & Output 07/16/18 07/17/18 07/17/18 18:59 06:59 18:59 Intake Total 680 / 680 350 / 350 100 / 100 Output Total 600 / 600 1350 / 1350 Balance 80 / 80 -1000 / -1000 100 / 100 Weight 70.7 kg Intake: IV 200 / 200 350 / 350 100 / 100 Levaquin 750 mg Premix Inj 150 150 / 150 ML @ 100 mls/hr IV.SIG Q24H EVGENY Rx#:[id number] Zosyn 4.5 GM Premix 4.5 gm In 200 / 200 200 / 200 100 / 100 100 ml @ 200 mls/hr IV.SIG Q6H EVGENY Rx#:[id number] Oral 480 / 480 Output: Urine 600 / 600 1350 / 1350 Other: # Voids 2 # Bowel Movements 0 Narrative: GENERAL: No acute distress SKIN: Warm and dry. No rashes EYES: No scleral icterus. EOM grossly I ENT: Moist mucous membranes. EOM grossly I CARDIOVASCULAR: Borderline tachycardia; no murmurs. Normal perfusion grossly RESPIRATORY: Scattered congestion, occ expiratory wheezing. Normal rate. On 4L O2 via NC GASTROINTESTINAL: No abd or flank pain currently MUSCULOSKELETAL: RLE >3cm larger than L; patient states is chronic. Pain to palpation NEURO: Grossly normal CN. Grossly normal peripheral motor/sensory function Results - Labs CBC & Chem 7: 07/17/18 05:36 07/17/18 05:36 Laboratory Results - last 24 hr 07/16/18 07/16/18 07/17/18 16:19 19:58 05:36 WBC 7.2 RBC 4.14 L Hgb 10.8 L Hct 33.2 L MCV 80.2 MCH 26.1 L MCHC 32.5 RDW 16.9 Plt Count 237 MPV 8.1 Neut % (Auto) 86.8 H Lymph % (Auto) 6.2 L Bibb % (Auto) 6.8 Eos % (Auto) 0.0 Baso % (Auto) 0.2 Neut # (Auto) 6.2 Lymph # (Auto) 0.4 L Bibb # (Auto) 0.5 Eos # (Auto) 0.0 Baso # (Auto) 0.0 WBC Differential . Differential Comment Auto diff final Sodium Potassium Chloride Carbon Dioxide Anion Gap BUN Creatinine Estimated GFR POC Glucose 302 H 199 H Random Glucose Calcium Phosphorus Magnesium Total Bilirubin AST ALT Alkaline Phosphatase Total Protein Albumin TSH Free T4 07/17/18 07/17/18 07/17/18 05:36 07:42 11:56 WBC RBC Hgb Hct MCV MCH MCHC RDW Plt Count MPV Neut % (Auto) Lymph % (Auto) Bibb % (Auto) Eos % (Auto) Baso % (Auto) Neut # (Auto) Lymph # (Auto) Bibb # (Auto) Eos # (Auto) Baso # (Auto) WBC Differential Differential Comment Sodium 139 Potassium 4.4 Chloride 100 Carbon Dioxide 31.1 Anion Gap 8 BUN 24 H Creatinine 0.76 Estimated GFR Greater than 89 POC Glucose 197 H 233 H Random Glucose 206 H Calcium 8.6 Phosphorus 2.6 Magnesium 2.1 Total Bilirubin 0.3 AST 22 ALT 31 Alkaline Phosphatase 58 Total Protein 6.4 Albumin 2.6 L TSH 0.270 L Free T4 1.40 Microbiology 07/13/18 21:10 Blood - Peripheral Aerobic Blood Culture - Preliminary No growth in 4 days 07/13/18 21:10 Blood - Peripheral Anaerobic Blood Culture - Preliminary No growth in 4 days 07/13/18 21:00 Blood - Peripheral Aerobic Blood Culture - Preliminary No growth in 4 days 07/13/18 21:00 Blood - Peripheral Anaerobic Blood Culture - Preliminary No growth in 4 days 07/14/18 10:30 Clean Catch Urine Urine Culture - Final <10,000 cfu/mL mixed gram positive octavia - no further workup - Imaging Impressions Chest CT 07/16/18 00:00 CONCLUSION: 1. Bibasilar patchy infiltrates greater right lower lobe, not significantly changed. There is also some new atelectasis in the right lower lobe anteriorly compared to previous study. 2. 6 mm nodule left lower lobe. 3. Coronary artery calcifications. 4. Severe emphysema. - Procedures NONE Assessment and Plan - Assessment (1) Urinary calculi Code(s): N20.9 - Urinary calculus, unspecified Status: Acute (2) COPD with acute exacerbation Code(s): J44.1 - Chronic obstructive pulmonary disease with (acute) exacerbation Status: Acute (3) Acute respiratory distress Code(s): R06.03 - Acute respiratory distress Status: Acute - Plan Mr. Nelson is a 67 yo M with: Respiratory Pneumonia/ COPD exacerbation Patient presented in respiratory failure Impression: On 4L NC O2; generally uses [address] Chest 07/16- bilateral infiltrates greater R lobe; not changed. Atelectasis in RLL anteriorly. 6mm nodule LLL. Coronary calcifications. Severe emphysema -Pulmonology consulted -Continue O2 -Continue Solumedrol -Continue duonebs, budesonide nebs -Continue Acapella, IS -Continue Mucinex -Continue antibiotics -Levaquin 750mg daily -Zosyn 4.5gm q6hrs -Continue PT; increase activity -Continue BiPAP as needed Nephrolithiasis Impression: Patient has a long-standing history of recurrent nephrolithiasis, multiple kidney stones in both kidneys He presented with gross hematuria, CT shows 14 mm stone in the ureteropelvic junction Urine culture negative 07/14 -Urology consulted-no intervention needed at this time; plan for outpatient management. If fever or pain hard to control, nephrostomy per IR recommended -Continue Levaquin Diabetes mellitus Impression: A1C 8.2 Continue Levemir nightly Continue sliding-scale coverage with Accu-Cheks Continue 1800-calorie diabetic diet Anxiety, dyslipidemia, tobacco dependency Continue diazepam, atorvastatin, Chantix DVT Prophylaxis Heparin Code Status: Full code Discharge Planning: Pending respiratory improvement/discharge planning
[2018-07-17 16:40] LABS: Hemoglobin A1c 8.2 % (4.3-6.0)
[2018-07-17] MEDS: Insulin Detemir Inj 1,000 UNIT/10 ML Vial SQ SCH (22:35)
[2018-07-18] MEDS: Piperacil/Tazo 4.5 GM Premix 4.5 GM/100 ML BAG IV.SIG SCH ×2 (03:17→11:32)
[2018-07-18] MEDS: Chlorhexidine Gluconate 2% 1 Pack (2 Cloths) TOPICAL SCH (03:27)
[2018-07-18] MEDS: Heparin - SQ 10,000 UNITS/ML Vial SQ SCH ×3 (04:19→20:37)
[2018-07-18] MEDS: diazePAM 5 MG Tablet PO SCH ×3 (06:29→22:00)
[2018-07-18 06:32] LABS: Baso % (Auto) 0.1 % (0.0-2.0); Hematocrit 33.7 % (39.0-51.0); Hemoglobin 11.3 gm/dL (13.0-17.0); Lymph # (Auto) 0.5 th/mm3 (1.0-4.8); Lymph % (Auto) 6.5 % (9.0-44.0); Mean Corpuscular HGB Conc 33.5 % (32.0-36.0); Mean Corpuscular Hemoglobin 26.5 pg (27.0-34.0); Mean Corpuscular Volume 79.3 fL (80.0-100.0); Mono # (Auto) 0.6 th/mm3 (0.0-0.9); Mono % (Auto) 7.2 % (0.0-8.0); Neut # (Auto) 7.2 th/mm3 (1.8-7.7); Neut % (Auto) 86.2 % (16.0-70.0); Platelet Count 257 th/mm3 (150-450); Red Blood Count 4.24 mil/mm3 (4.50-5.90); Red Cell Distribution Width 16.8 % (11.6-17.2); White Blood Count 8.4 th/mm3 (4.0-11.0)
[2018-07-18 06:52] LABS: Anion Gap 9 meq/L (5-15); Blood Urea Nitrogen 24 mg/dL (7-18); Calcium 8.6 mg/dL (8.5-10.1); Carbon Dioxide 29.9 meq/L (21.0-32.0); Chloride 102 meq/L (98-107); Glomerular Filtration Rate Greater Than 89 mL/min (>89); Glucose,Random 131 mg/dL (74-106); Potassium 4.2 meq/L (3.5-5.1); Sodium 141 meq/L (136-145)
[2018-07-18] MEDS: MethylPREDNISolone Sod Succinate Inj 40 MG/ML Vial IV.PUSH SCH ×2 (08:40→20:38)
[2018-07-18] MEDS: Famotidine PF Inj 20 MG/2 ML Vial IV.PUSH SCH (08:41)
[2018-07-18] MEDS: guaiFENesin 600 MG ER Tablet PO SCH ×2 (08:41→20:35)
[2018-07-18] MEDS: Dicyclomine 10 MG Capsule PO SCH ×4 (08:41→20:37)
[2018-07-18] MEDS: Insulin NovoLOG Aspart Correctional Sugar Inj SQ SCH ×4 (08:41→20:38)
[2018-07-18] MEDS: Varenicline 1 MG Tablet PO SCH ×2 (08:41→20:35)
[2018-07-18] MEDS: Senna/Docusate Sodium 8.6/50 MG Tablet PO SCH ×2 (08:41→20:35)
--- NOTE | 2018-07-18 10:48 | P.PNIM ---
Subjective Interval history: Mr. Nelson was afebrile with stable VS overnight. O2 saturation 95% on 4L O2 via NC. Patient feels that his breathing is back to near his baseline currently; his cough is improved. Patient had significant abdominal pain yesterday attributed to stone; it improved with Morphine but patient would like to cease Morphine if possible. Patient seen in company of his son; patient clarified that he would like CPR but would not like intubation. He is very opposed to SNF due to involuntary psychiatric hospitalization as child, but is agreeable if too weak at home. Physical Exam Vital signs: Vital Signs 07/17/18 11:22 07/17/18 12:24 07/17/18 15:35 Temperature 97.4 F L Pulse Rate 95 H 100 H 96 H Respiratory Rate 18 20 18 Blood Pressure 123/82 Pulse Oximetry 93 L 07/17/18 15:36 07/17/18 16:47 07/17/18 16:57 Temperature 97.3 F L Pulse Rate 104 H 100 H Respiratory Rate 20 Blood Pressure 115/74 Pulse Oximetry 94 L 95 07/17/18 19:36 07/17/18 20:00 07/17/18 21:42 Temperature 97.2 F L Pulse Rate 104 H 111 H Respiratory Rate 20 24 16 Blood Pressure 146/73 H Pulse Oximetry 95 07/18/18 00:00 07/18/18 01:48 07/18/18 01:49 Temperature 97.3 F L Pulse Rate 88 80 Respiratory Rate 22 22 Blood Pressure 116/73 Pulse Oximetry 95 94 L 07/18/18 04:00 07/18/18 04:10 07/18/18 08:00 Temperature 97.3 F L 97.2 F L Pulse Rate 89 92 H 91 H Respiratory Rate 20 20 Blood Pressure 112/75 137/97 H Pulse Oximetry 95 98 07/18/18 09:28 07/18/18 09:40 Temperature Pulse Rate 92 H 85 Respiratory Rate 16 Blood Pressure Pulse Oximetry 95 Intake & Output 07/17/18 07/18/18 07/18/18 18:59 06:59 18:59 Intake Total 200 / 200 350 / 350 Output Total 400 / 400 Balance 200 / 200 -50 / -50 Intake: IV 200 / 200 350 / 350 Levaquin 750 mg Premix Inj 150 150 / 150 ML @ 100 mls/hr IV.SIG Q24H [facility] Rx#:[id number] Zosyn 4.5 GM Premix 4.5 gm In 200 / 200 200 / 200 100 ml @ 200 mls/hr IV.SIG Q6H [facility] Rx#:[id number] Output: Urine 400 / 400 Narrative: GENERAL: No acute distress SKIN: Warm and dry. No rashes EENT: Moist mucous membranes. EOM grossly I CARDIOVASCULAR: Regular rate and rhythm; no murmurs. Normal perfusion grossly RESPIRATORY: Scattered congestion, occ expiratory wheezing. Very diminished breath sounds. Normal rate. On 4L O2 via NC GASTROINTESTINAL: No abd or flank pain currently; soft/nontender MUSCULOSKELETAL: RLE larger than L; patient states is chronic NEURO: Grossly normal CN. Grossly normal peripheral motor/sensory function Results - Labs CBC & Chem 7: 07/18/18 05:39 07/18/18 05:39 Laboratory Results - last 24 hr 07/17/18 07/17/18 07/17/18 05:36 11:56 16:21 WBC RBC Hgb Hct MCV MCH MCHC RDW Plt Count MPV Neut % (Auto) Lymph % (Auto) [place] % (Auto) Eos % (Auto) Baso % (Auto) Neut # (Auto) Lymph # (Auto) [place] # (Auto) Eos # (Auto) Baso # (Auto) WBC Differential Differential Comment Sodium Potassium Chloride Carbon Dioxide Anion Gap BUN Creatinine Estimated GFR POC Glucose 233 H 287 H Random Glucose Hemoglobin A1c 8.2 H Calcium 07/17/18 07/18/18 07/18/18 20:05 05:39 05:39 WBC 8.4 RBC 4.24 L Hgb 11.3 L Hct 33.7 L MCV 79.3 L MCH 26.5 L MCHC 33.5 RDW 16.8 Plt Count 257 MPV 8.0 Neut % (Auto) 86.2 H Lymph % (Auto) 6.5 L [place] % (Auto) 7.2 Eos % (Auto) 0.0 Baso % (Auto) 0.1 Neut # (Auto) 7.2 Lymph # (Auto) 0.5 L [place] # (Auto) 0.6 Eos # (Auto) 0.0 Baso # (Auto) 0.0 WBC Differential . Differential Comment Auto diff final Sodium 141 Potassium 4.2 Chloride 102 Carbon Dioxide 29.9 Anion Gap 9 BUN 24 H Creatinine 0.77 Estimated GFR Greater than 89 POC Glucose 269 H Random Glucose 131 H Hemoglobin A1c Calcium 8.6 07/18/18 07:11 WBC RBC Hgb Hct MCV MCH MCHC RDW Plt Count MPV Neut % (Auto) Lymph % (Auto) [place] % (Auto) Eos % (Auto) Baso % (Auto) Neut # (Auto) Lymph # (Auto) [place] # (Auto) Eos # (Auto) Baso # (Auto) WBC Differential Differential Comment Sodium Potassium Chloride Carbon Dioxide Anion Gap BUN Creatinine Estimated GFR POC Glucose 174 H Random Glucose Hemoglobin A1c Calcium Microbiology 07/13/18 21:10 Blood - Peripheral Aerobic Blood Culture - Preliminary No growth in 4 days 07/13/18 21:10 Blood - Peripheral Anaerobic Blood Culture - Preliminary No growth in 4 days 07/13/18 21:00 Blood - Peripheral Aerobic Blood Culture - Preliminary No growth in 4 days 07/13/18 21:00 Blood - Peripheral Anaerobic Blood Culture - Preliminary No growth in 4 days - Procedures NONE Assessment and Plan - Assessment (1) Urinary calculi Code(s): N20.9 - Urinary calculus, unspecified Status: Acute (2) COPD with acute exacerbation Code(s): J44.1 - Chronic obstructive pulmonary disease with (acute) exacerbation Status: Acute (3) Acute respiratory distress Code(s): R06.03 - Acute respiratory distress Status: Acute - Plan Mr. Nelson is a 67 yo M with: Respiratory Pneumonia/ COPD exacerbation Patient presented in respiratory failure Impression: On 4L [place] O2; generally uses [address] Chest 07/16- bilateral infiltrates greater R lobe; not changed. Atelectasis in RLL anteriorly. 6mm nodule LLL. Coronary calcifications. Severe emphysema -Pulmonology consulted -Continue O2 -Continue Solumedrol; will wean to BID -Continue duonebs, budesonide nebs -Continue Acapella, IS -Continue Mucinex -Continue antibiotics -Levaquin 750mg daily -Will stop Zosyn 4.5gm q6hrs (started 07/13; cultures so far negative and no leukocytosis; no aspiration concern currently) -Continue PT; increase activity -Continue BiPAP as needed Nephrolithiasis Impression: Patient has a long-standing history of recurrent nephrolithiasis, multiple kidney stones in both kidneys He presented with gross hematuria, CT shows 14 mm stone in the ureteropelvic junction Urine culture negative 07/14 -Urology consulted-no intervention needed at this time; plan for outpatient management. If fever or pain hard to control, nephrostomy per IR recommended -Continue Levaquin Diabetes mellitus Impression: A1C 8.2 Continue Levemir nightly Continue sliding-scale coverage with Accu-Cheks Continue 1800-calorie diabetic diet Anxiety, dyslipidemia, tobacco dependency Continue diazepam, atorvastatin, Chantix Will get US of LE's for calf asymmetry Patient agreeable to Palliative consult to clarify goals of care DVT Prophylaxis Heparin Code Status: Alternative- no intubation Discharge Planning: Pending respiratory improvement/discharge planning
--- NOTE | 2018-07-18 11:33 | P.CONPAL ---
Consult Service: Palliative Care Requesting Physician: Torey Dawson Reason for Consult: a. To assist with evaluation and management of symptoms including: pain, dypsnea, depression b. To assist medical decision maker(s) with: better understanding of current medical conditions; weighing benefits/burdens of medical treatment options; making medical treatment decisions. Primary Care Provider: UNKNOWN History of Present Illness History of Present Illness: This is a 67 yo male with COPD on home O2, DM, HTN who presented 07/13 with respiratory distress. He has intermittent exacerbations of his COPD and admits a "bad one" about once a year every summer. He says this is his worst attack yet. He lives wiht his daughter and says he does well at home when the a/c is down low but lately he has been doing some work on his brother's trailer and that is when he started feeling more SOB than usual. He received duonebs, albuterol, solumedrol en route and was still distressed on arrival, tachypneic with respiratory rate in 30's, tachycardic. He was placed on bipap. CXR showed bullous emphysematous changes and chronic interstitial change. CT abd showed patchy basilar airspace disease with peribronchial thickening and distal airway deisease, 14mm ureteral calculus, stable 4.4 cm infrarenal AAA. Chest CT showed severe emphysematous changes, stable noncalcified lung nodules, poss PNA. Pulmonology consulted, suspicious for basilar PNA. Pt started having flank pain, urology consulted for calculus. He admits depression r/t his advancing age and disease process. He admits mild anxiety. He denies pain on my evaluation. He gets left flank pain intermittently and it lasts for a few hours and then goes away. He admits 60 lb weight loss in the last 6 months. Says he has been worked up for this and had multiple imaging studies but no malignancy has been identified. he does admit to decreased appetite when he was losing the weight, but denies this currently. he reports intermittent SOB and SOB with activity but he tries to stay active. When he has an exacerbation, he comes to the ER for "steroids and nebulizer and the I feel better." He has difficulty sleeping, he has to get up every 2-3 hours to do a breathing treatment. He is mildly SOB to conversation. He is tachypneic. Sat 95%, 4L o2 via NC. Function/Cognitive Trajectory: Prior to admission pt was living with daughter, dependent on O2 but independent with ADLs. He has been losing weight in the last 6 months, 60 lbs. Review of Systems Constitutional: Reports weight gain, Denies fever(s) Eyes: Denies blind spots Ears, Nose, Mouth, and Throat: Denies abnormal hearing, Denies nosebleed Cardiovascular: Denies chest pain, Denies fainting Respiratory: Reports shortness of breath, Reports shortness of breath with activity, Reports wheezing Gastrointestinal: Denies abdominal pain, Denies vomiting Musculoskeletal: Denies abnormal walking Skin/Breast: Denies bleeding lesions, Denies yellowing of the skin Neurologic: Denies tingling/numbness/burning sensations Psychiatric: Reports abnormal sleep pattern, Reports anxiety, Reports depression , Denies memory loss Hematologic/Lymphatic: Denies easy bleeding PMFSH - History History Provided By: Patient - Medical History Medical History: Medical History (Last Reviewed 07/21/18 @ 08:58 by Saadia Domínguez) COPD (chronic obstructive pulmonary disease) Diabetes HTN (hypertension) - Family History Family History: Family History (Last Updated 07/18/18 @ 12:46 by TEMI Carreno) Father Alcoholism in family Brother COPD (chronic obstructive pulmonary disease) - Social History I have reviewed the patient's Social History: Yes - Tobacco History Second Hand Smoke Exposure: Yes Tobacco Use In Past 30 Days: Yes Smoking Status: Former smoker Tobacco Type: Cigarettes - Alcohol History How Often Do You Have a Drink Containing Alcohol: Never (formerly was heavy drinker) - Substance Use History Substance History: No History of Abuse, Past History (marijuana) - Travel History Recent Travel in the [facility] Within the Last 8 Weeks: No Recent Travel Out of the Country Within the Last 8 Weeks: No - Immunization History Tetanus Immunization: <5 Years Hx Influenza Vaccine This Season: No Medications and Allergies Active Medications: Active Medications Acetaminophen (Tylenol) 650 mg PO Q6H PRN PRN Reason: PAIN 1-10 AND/OR FEVER >101F Last Admin: 07/14/18 20:38 Dose: 650 mg Hydrocodone Bitart/Acetaminophen ([place] 10/325) 1 tab PO Q6H PRN PRN Reason: PAIN SCALE 7 TO 10 SEVERE Hydrocodone Bitart/Acetaminophen ([place] 5/325) 1 tab PO Q6H PRN PRN Reason: PAIN SCALE 4 TO 6 MODERATE Al Hydroxide/Mg Hydroxide (Milk Of Magnesia Liq) 30 ml PO Q12H PRN PRN Reason: Mild Constipation Albuterol (Duoneb Neb (Prn)) 1 ampul NEB Q2HR NEB PRN PRN Reason: WHEEZING Last Admin: 07/18/18 01:45 Dose: 1 ampul Aspirin (Ecotrin) 81 mg PO DAILY [facility] Last Admin: 07/18/18 08:41 Dose: 81 mg Atorvastatin Calcium (Lipitor) 80 mg PO DAILY [facility] Last Admin: 07/18/18 08:40 Dose: 80 mg Bisacodyl (Dulcolax Supp) 10 mg RECTAL DAILY PRN PRN Reason: SEVERE CONSITIPATION Budesonide (Pulmocort Respule Neb) 0.5 mg NEB Q12HR NEB [facility] Last Admin: 07/18/18 09:27 Dose: 0.5 mg Chlorhexidine Gluconate (Chlorhexidine 2% Cloth) 3 pack TOPICAL DAILY@0400 [facility] Stop: 07/19/18 03:59 Last Admin: 07/18/18 03:27 Dose: Not Given Chlorhexidine Gluconate (Chlorhexidine 2% Cloth) 3 pack TOPICAL DAILY@0400 PRN PRN Reason: Extra cloth needed Stop: 07/19/18 03:59 Dextrose (D50w Vial) 50 ml IV.PUSH UNSCH PRN PRN Reason: PER HYPOGLYCEMIA PROTOCOL Diazepam (Valium) 5 mg PO Q8H [facility] Last Admin: 07/18/18 06:29 Dose: 5 mg Dicyclomine HCl (Bentyl) 10 mg PO QID [facility] Last Admin: 07/18/18 08:41 Dose: 10 mg Famotidine (Pepcid) 20 mg PO BID [facility] Glucagon (Glucagon Inj) 1 mg OTHER PRN PRN PRN Reason: for Hypoglycemia Protocol Guaifenesin (Mucinex Er) 1,200 mg PO BID [facility] Last Admin: 07/18/18 08:41 Dose: 1,200 mg Heparin Sodium (Porcine) (Heparin Inj) 5,000 units SQ Q8H [facility] Last Admin: 07/18/18 04:19 Dose: 5,000 units Levofloxacin/Dextrose (Levaquin 750 Mg Premix Inj) 150 mls @ 100 mls/hr IV.SIG Q24H [facility] Last Infusion: 07/17/18 22:46 Dose: Infused Insulin Aspart (Novolog Insulin Correctional Sugar Inj) 0 unit SQ ACHS [facility]; Protocol Last Admin: 07/18/18 08:41 Dose: 2 unit Insulin Detemir (Levemir Inj) 10 unit SQ HS [facility] Last Admin: 07/17/18 22:35 Dose: 10 unit Lactulose (Lactulose Liq) 30 ml PO DAILY PRN PRN Reason: SEVERE CONSITIPATION Methylprednisolone Sodium Succinate (Solumedrol Inj) 40 mg IV.PUSH Q12HR [facility] Last Admin: 07/18/18 08:40 Dose: 40 mg Ondansetron HCl (Zofran Inj) 4 mg IV.PUSH Q6H PRN PRN Reason: NAUSEA OR VOMITING Last Admin: 07/13/18 20:56 Dose: 4 mg Ptownmed ( Linaclotide [Linzess ] 145 Mcg) 0 each PO DAILY [facility] Senna/Docusate Sodium (Henrietta-Colace) 1 tab PO BID [facility] Last Admin: 07/18/18 08:41 Dose: 1 tab Sennosides (Senokot) 17.2 mg PO Q12H PRN PRN Reason: Moderate Constipation Simethicone (Mylicon Chew) 80 mg PO Q8H PRN PRN Reason: GAS RETENTION Last Admin: 07/15/18 13:07 Dose: 80 mg Sodium Chloride (Ns Flush) 2 ml IV.FLUSH BID [facility] Last Admin: 07/18/18 08:41 Dose: 2 ml Sodium Chloride (Ns Flush) 2 ml IV.FLUSH PRN PRN PRN Reason: FLUSH AFTER USING IV ACCESS Varenicline (Chantix) 1 mg PO BID [facility] Last Admin: 07/18/18 08:41 Dose: 1 mg Allergies Allergy/AdvReac Type Severity Reaction Status Date / Time No Known Allergies Allergy Verified 07/13/18 21:30 Home Medications Medication Instructions Recorded Confirmed Type aspirin [Aspirin Low Dose] 81 mg PO DAILY 07/13/18 07/13/18 History atorvastatin 80 mg PO DAILY 07/13/18 07/13/18 History diazepam 5 mg PO TID 07/13/18 07/13/18 History dicyclomine 10 mg PO QID 07/13/18 07/13/18 History linaclotide [Linzess] 145 mcg PO DAILY 07/13/18 07/13/18 History metformin 1,000 mg PO BID 07/13/18 07/13/18 History prednisone 10 mg PO DAILY 07/13/18 07/13/18 History varenicline [Chantix] 1 mg PO BID 07/13/18 07/13/18 History Advance Directives Living Will: No Healthcare Surrogate: Yes Health Care Surrogate Name and Number: Rainer Nelson [phone] Power of Log Clerk: No Ethical and Legal Issues: pt is capacitated to make medical decisions. He has indicated that he would like his son Rainer to be his surrogate decision maker, should he become incapacitated. Physical Exam Vital Signs: Vital Signs - 24 hr 07/17/18 11:22 07/17/18 12:24 07/17/18 15:35 Temperature 97.4 F L Pulse Rate 95 H 100 H 96 H Respiratory Rate 18 20 18 Blood Pressure 123/82 Pulse Oximetry 93 L 07/17/18 15:36 07/17/18 16:47 07/17/18 16:57 Temperature 97.3 F L Pulse Rate 104 H 100 H Respiratory Rate 20 Blood Pressure 115/74 Pulse Oximetry 94 L 95 07/17/18 19:36 07/17/18 20:00 07/17/18 21:42 Temperature 97.2 F L Pulse Rate 104 H 111 H Respiratory Rate 20 24 16 Blood Pressure 146/73 H Pulse Oximetry 95 07/18/18 00:00 07/18/18 01:48 07/18/18 01:49 Temperature 97.3 F L Pulse Rate 88 80 Respiratory Rate 22 22 Blood Pressure 116/73 Pulse Oximetry 95 94 L 07/18/18 04:00 07/18/18 04:10 07/18/18 08:00 Temperature 97.3 F L 97.2 F L Pulse Rate 89 92 H 91 H Respiratory Rate 20 20 Blood Pressure 112/75 137/97 H Pulse Oximetry 95 98 07/18/18 09:28 07/18/18 09:40 Temperature Pulse Rate 92 H 85 Respiratory Rate 16 Blood Pressure Pulse Oximetry 95 I&O: Intake & Output 07/16/18 07/17/18 07/18/18 07/19/18 06:59 06:59 06:59 06:59 Intake Total 990 / 990 1030 / 1030 550 / 550 Output Total 625 / 625 1950 / 1950 400 / 400 Balance 365 / 365 -920 / -920 150 / 150 Weight 70.7 kg Physical Exam: CONSTITUTIONAL/GENERAL: This is an undernourished pt TUBES/LINES/DRAINS: NC SKIN: No jaundice, rashes, or lesions. + Ecchymoses on upper extremities. No wounds seen anteriorly. Skin temperature appropriate. Not diaphoretic. HEAD: Atraumatic. Normocephalic. EYES: PERRL. Extraocular motions intact. No scleral icterus. No injection or drainage. Fundi not examined. ENT: Hearing grossly normal. Nose without bleeding or purulent drainage. NECK: Trachea midline. Supple, nontender. CARDIOVASCULAR: RRR without murmurs, gallops, or rubs. Peripheral pulses symmetric RESPIRATORY/CHEST: tachypneic. +wheezes throughout. +coarse rales bilat bases. Diminished breath sounds. mild SOB to conversation GASTROINTESTINAL: Abdomen soft, non-tender, nondistended. No hepato-splenomegaly , or palpable masses. No guarding. Bowel sounds present. GENITOURINARY: Without palpable bladder distension. MUSCULOSKELETAL: Extremities without clubbing, cyanosis, or edema. No joint tenderness or effusion noted. NEUROLOGICAL: Awake and alert. Motor and sensory grossly within normal limits. Follows commands. Cognitively sharp. Moves all extremities. PSYCHIATRIC: No obvious anxiety/depression. no apparent hallucinations or other psychotic thought process. Diagnostic Tests Laboratory: Laboratory Results - last 72 hr 07/15/18 07/15/18 07/15/18 11:50 18:11 20:33 WBC RBC Hgb Hct MCV MCH MCHC RDW Plt Count MPV Neut % (Auto) Lymph % (Auto) Barren % (Auto) Eos % (Auto) Baso % (Auto) Neut # (Auto) Lymph # (Auto) Barren # (Auto) Eos # (Auto) Baso # (Auto) WBC Differential Differential Comment Hematology Comments Sodium Potassium Chloride Carbon Dioxide Anion Gap BUN Creatinine Estimated GFR POC Glucose 281 H 229 H 232 H Random Glucose Hemoglobin A1c Calcium Phosphorus Magnesium Total Bilirubin AST ALT Alkaline Phosphatase Total Protein Albumin TSH Free T4 07/16/18 07/16/18 07/16/18 05:50 05:50 08:08 WBC 9.9 RBC 4.39 L Hgb 11.6 L Hct 35.2 L MCV 80.2 MCH 26.5 L MCHC 33.0 RDW 17.1 Plt Count 234 MPV 8.5 Neut % (Auto) Lymph % (Auto) Barren % (Auto) Eos % (Auto) Baso % (Auto) Neut # (Auto) Lymph # (Auto) Barren # (Auto) Eos # (Auto) Baso # (Auto) WBC Differential Differential Comment Hematology Comments Sodium 139 Potassium 4.5 Chloride 102 Carbon Dioxide 28.1 Anion Gap 9 BUN 24 H Creatinine 0.79 Estimated GFR Greater than 89 POC Glucose 223 H Random Glucose 205 H Hemoglobin A1c Calcium 8.2 L Phosphorus Magnesium Total Bilirubin AST ALT Alkaline Phosphatase Total Protein Albumin TSH Free T4 07/16/18 07/16/18 07/16/18 11:04 16:19 19:58 WBC RBC Hgb Hct MCV MCH MCHC RDW Plt Count MPV Neut % (Auto) Lymph % (Auto) Barren % (Auto) Eos % (Auto) Baso % (Auto) Neut # (Auto) Lymph # (Auto) Barren # (Auto) Eos # (Auto) Baso # (Auto) WBC Differential Differential Comment Hematology Comments Sodium Potassium Chloride Carbon Dioxide Anion Gap BUN Creatinine Estimated GFR POC Glucose 190 H 302 H 199 H Random Glucose Hemoglobin A1c Calcium Phosphorus Magnesium Total Bilirubin AST ALT Alkaline Phosphatase Total Protein Albumin TSH Free T4 07/17/18 07/17/18 07/17/18 05:36 05:36 05:36 WBC 7.2 RBC 4.14 L Hgb 10.8 L Hct 33.2 L MCV 80.2 MCH 26.1 L MCHC 32.5 RDW 16.9 Plt Count 237 MPV 8.1 Neut % (Auto) 86.8 H Lymph % (Auto) 6.2 L Barren % (Auto) 6.8 Eos % (Auto) 0.0 Baso % (Auto) 0.2 Neut # (Auto) 6.2 Lymph # (Auto) 0.4 L Barren # (Auto) 0.5 Eos # (Auto) 0.0 Baso # (Auto) 0.0 WBC Differential . Differential Comment Auto diff final Hematology Comments Sodium 139 Potassium 4.4 Chloride 100 Carbon Dioxide 31.1 Anion Gap 8 BUN 24 H Creatinine 0.76 Estimated GFR Greater than 89 POC Glucose Random Glucose 206 H Hemoglobin A1c 8.2 H Calcium 8.6 Phosphorus 2.6 Magnesium 2.1 Total Bilirubin 0.3 AST 22 ALT 31 Alkaline Phosphatase 58 Total Protein 6.4 Albumin 2.6 L TSH 0.270 L Free T4 1.40 07/17/18 07/17/18 07/17/18 07:42 11:56 16:21 WBC RBC Hgb Hct MCV MCH MCHC RDW Plt Count MPV Neut % (Auto) Lymph % (Auto) Barren % (Auto) Eos % (Auto) Baso % (Auto) Neut # (Auto) Lymph # (Auto) Barren # (Auto) Eos # (Auto) Baso # (Auto) WBC Differential Differential Comment Hematology Comments Sodium Potassium Chloride Carbon Dioxide Anion Gap BUN Creatinine Estimated GFR POC Glucose 197 H 233 H 287 H Random Glucose Hemoglobin A1c Calcium Phosphorus Magnesium Total Bilirubin AST ALT Alkaline Phosphatase Total Protein Albumin TSH Free T4 07/17/18 07/18/18 07/18/18 20:05 05:39 05:39 WBC 8.4 RBC 4.24 L Hgb 11.3 L Hct 33.7 L MCV 79.3 L MCH 26.5 L MCHC 33.5 RDW 16.8 Plt Count 257 MPV 8.0 Neut % (Auto) 86.2 H Lymph % (Auto) 6.5 L Barren % (Auto) 7.2 Eos % (Auto) 0.0 Baso % (Auto) 0.1 Neut # (Auto) 7.2 Lymph # (Auto) 0.5 L Barren # (Auto) 0.6 Eos # (Auto) 0.0 Baso # (Auto) 0.0 WBC Differential . Differential Comment Auto diff final Hematology Comments Sodium 141 Potassium 4.2 Chloride 102 Carbon Dioxide 29.9 Anion Gap 9 BUN 24 H Creatinine 0.77 Estimated GFR Greater than 89 POC Glucose 269 H Random Glucose 131 H Hemoglobin A1c Calcium 8.6 Phosphorus Magnesium Total Bilirubin AST ALT Alkaline Phosphatase Total Protein Albumin TSH Free T4 07/18/18 07:11 WBC RBC Hgb Hct MCV MCH MCHC RDW Plt Count MPV Neut % (Auto) Lymph % (Auto) Barren % (Auto) Eos % (Auto) Baso % (Auto) Neut # (Auto) Lymph # (Auto) Barren # (Auto) Eos # (Auto) Baso # (Auto) WBC Differential Differential Comment Hematology Comments Sodium Potassium Chloride Carbon Dioxide Anion Gap BUN Creatinine Estimated GFR POC Glucose 174 H Random Glucose Hemoglobin A1c Calcium Phosphorus Magnesium Total Bilirubin AST ALT Alkaline Phosphatase Total Protein Albumin TSH Free T4 Result Diagrams: 07/22/18 08:27 07/22/18 08:27 Microbiology: Microbiology 07/13/18 21:10 Aerobic Blood Culture - Final Blood - Peripheral No growth in 5 days Anaerobic Blood Culture - Final No growth in 5 days 07/13/18 21:00 Aerobic Blood Culture - Final Blood - Peripheral No growth in 5 days Anaerobic Blood Culture - Final No growth in 5 days 07/14/18 10:30 Urine Culture - Final Clean Catch Urine <10,000 cfu/mL mixed gram positive octavia - no further workup Imaging: ITS Impressions Chest X-Ray 07/13/18 17:09 CONCLUSION: Bullous emphysematous changes and chronic interstitial change. No acute cardiopulmonary disease. Abdomen/Pelvis CT 07/14/18 00:00 CONCLUSION: 1. Patchy basilar airspace disease with peribronchial thickening and distal airway disease. Differential diagnosis includes bronchopneumonia and aspiration. 2. 14 mm calculus at the left ureteropelvic junction with mild left hydronephrosis. No ureteral calculi. 3. Stable 4.4 cm infrarenal abdominal aortic aneurysm. Chest CT 07/16/18 00:00 CONCLUSION: 1. Bibasilar patchy infiltrates greater right lower lobe, not significantly changed. There is also some new atelectasis in the right lower lobe anteriorly compared to previous study. 2. 6 mm nodule left lower lobe. 3. Coronary artery calcifications. 4. Severe emphysema. Patient/Family Conference Present at Family Conference: Patient Family Conference Time: 45 Family Conference Location: Bedside Issues Discussed: * Palliative care role, purpose, approach * Additional medical, psychosocial, and spiritual history * Patients general health, functional status in the months leading up to the current hospitalization * Patient understanding of the current medical problems * Patient understanding of prognosis * Patients goals of care as best understood from advance directives and/or conversations and/or values * Current medical treatment options and benefits/burdens of those options * Likely scenarios comparing ongoing aggressive care with a transition to comfort measures only * code status - opts for no code/DNR " * decision maker - elects son Rainer as HCS * Questions answered to the best of my ability * Palliative care contact information provided Goals pending. 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 Says he just wants to go home. Introduced hospice and explained that it doesn't mean he is "quitting," but that the symptoms of his progressive, incurable disease process will be well controlled. He mentions wanting therapy. I explained that hospice would not provide. He did still agree to an informational hospice consult and asked that his son Rainer be present for it. Assessment and Plan - Disease Oriented Problem List (1) COPD with acute exacerbation (2) Acute respiratory distress (3) Urinary calculi Pertinent Non-Medical Issues: Psychosocial: Pt is originally from [place]. Has been in [place] 25 years. 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 His some years ago of cancer. he has 2 children who live locally. Spiritual: no Legal:pt is capacitated to make medical decisions. He has indicated that he would like his son Rainer to be his surrogate decision maker, should he become incapacitated. Ethical issues impacting care: none Important Contacts: Son Rainer Nelson [phone] Daughter Alessia Ba [phone] Prognosis: This is a 67 yo male with end stage COPD. He has lost 60 lbs in 6 months, no malignancy identified thus far. His respiratory status seems to be declining as this is his worse exacerbation yet, possibly complicated by PNA. he has smoked cigarettes up until 1 week ago. He is quite symptomatic. Oxygen dependent. His prognosis is poor as his disease process is progressive. he will continue to decline. His prognosis is poor. He is hospice appropriate should goals be in line with comfort. Code Status: No Code DNR Plan: - LEGAL DECISION MAKER - pt is capacitated to make medical decisions. He has indicated that he would like his son Rainer to be his surrogate decision maker , should he become incapacitated. - CODE STATUS- no code/DNR - GOALS - Goals pending. 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 Says he just wants to go home. Introduced hospice and explained that it doesn't mean he is "quitting," but that the symptoms of his progressive, incurable disease process will be well controlled. He mentions wanting therapy. I explained that hospice would not provide. He did still agree to an informational hospice consult and asked that his son Rainer be present for it. - SYMPTOMS - * dyspnea - COPD, poss PNA. o2 dependent. on my eval he has some dyspnea, SOB to conversation. sat 95% on 4L via NC. has duonebs, solumedrol, pulmocort. has scheduled diazepam as well. No further recs at this time * depression/anxiety - multifactorial. depression 2/2 advancing age and disease process. anxiety likely r/t dyspnea. has diazepam 5mg q8h scheduled. no consider adding SSRI. * pain - 2/2 kidney stones. denies pain on my eval. his pain is intermittent, lasting 3-4 hours. has [place] 10/325 and 5/325 PRN. no further recs at this time. - pending informational hospice consult - Palliative care will continue to follow during hospital course as condition evolves, to assist patient/decision-maker with understanding of medical conditions, weighing benefits/burdens of treatment options, for clarification of goals of treatment. Additionally will assist with any symptoms of palliative concern Appreciation Thank you for the opportunity to participate in the care of Tunde Nelson.
--- NOTE | 2018-07-18 13:13 | P.PNPL ---
Subjective Interval history: Patient is lying in bed in NAD. Afebrile. Physical Exam Vital signs: Vital Signs 07/17/18 15:35 07/17/18 15:36 07/17/18 16:47 Temperature 97.3 F L Pulse Rate 96 H 104 H Respiratory Rate 18 20 Blood Pressure 115/74 Pulse Oximetry 94 L 95 07/17/18 16:57 07/17/18 19:36 07/17/18 20:00 Temperature 97.2 F L Pulse Rate 100 H 104 H 111 H Respiratory Rate 20 24 Blood Pressure 146/73 H Pulse Oximetry 95 07/17/18 21:42 07/18/18 00:00 07/18/18 01:48 Temperature 97.3 F L Pulse Rate 88 80 Respiratory Rate 16 22 22 Blood Pressure 116/73 Pulse Oximetry 95 07/18/18 01:49 07/18/18 04:00 07/18/18 04:10 Temperature 97.3 F L Pulse Rate 89 92 H Respiratory Rate 20 Blood Pressure 112/75 Pulse Oximetry 94 L 95 07/18/18 08:00 07/18/18 09:28 07/18/18 09:40 Temperature 97.2 F L Pulse Rate 91 H 92 H 85 Respiratory Rate 20 16 Blood Pressure 137/97 H Pulse Oximetry 98 95 Intake & Output 07/17/18 07/18/18 07/18/18 18:59 06:59 18:59 Intake Total 200 / 200 350 / 350 Output Total 400 / 400 Balance 200 / 200 -50 / -50 Intake: IV 200 / 200 350 / 350 Levaquin 750 mg Premix Inj 150 150 / 150 ML @ 100 mls/hr IV.SIG Q24H [facility] Rx#:[id number] Zosyn 4.5 GM Premix 4.5 gm In 200 / 200 200 / 200 100 ml @ 200 mls/hr IV.SIG Q6H [facility]GEN[facility] Rx#:[id number] Output: Urine 400 / 400 - Constitutional no acute distress - Routine HEENT Exam Head: Present: normocephalic, atraumatic Eye: Present: EOMI, PERRL, normal accommodation, conjunctivae pink ENT: Present: mucous membranes moist - Routine Neck Exam Present: supple, full ROM, trachea midline - Routine Respiratory Exam Present: CTA bilaterally - Routine Cardiovascular Exam Present: RRR, S1, S2 - Routine Abdominal Exam Present: soft, normoactive bowel sounds - Routine Extremities Exam Present: full ROM, pulses intact, normal capillary refill - Routine Skin Exam Present: intact, dry - Routine Neurological Exam Present: alert, oriented X3, CN II-XII intact Assessment and Plan - Plan 1)Resp Insuff 2)COPD- on 3L home oxygen 3)Bibasilar patchy infiltrates with atelectasis 4)6mm Left lung nodule Plan Continue with oxygen keep sats >92% Bronchodilators- on DuoNeb and Pulmicort Incentive spirometry IV steroids- on solumederol 40mg IV Q12 BIPAP PRN for resp distress continue with abx ( Levaquin) monitor for signs of infections ( Fever, WBC) Follow up on Doppler US LE GI/DVT prophylaxis- on Heparin SQ Palliative care is following- No code DNR
--- NOTE | 2018-07-18 13:15 | US ---
EXAM DATE: 07/18/2018 12:50 PM EDT AGE/SEX: 67 years / Male INDICATIONS: Swelling. CLINICAL DATA: This is the patient's initial encounter. Patient reports that signs and symptoms have been present for 1 day and indicates a pain score of 0/10. MEDICAL/SURGICAL HISTORY: . COPD. Diabetic. HTN. None. COMPARISON: No prior exams available for comparison. TECHNIQUE: Venous ultrasound of both lower extremities was performed from the inguinal ligament to t he proximal calf. Real-time, color Doppler and spectral tracing, compression and augmentation techni ques were used. FINDINGS: Right Leg: Normal compression of the deep venous system from the inguinal region to the proximal victor manuel f. No echogenic clot is seen. Normal response of the venous system to augmentation and respiration. Left Leg: Normal compression of the deep venous system from the inguinal region to the proximal calf . No echogenic clot is seen. Normal response of the venous system to augmentation and respiration. Other: None. CONCLUSION: 1. Negative for deep venous thrombosis. Electronically signed by: Leon Casey MD 07/18/2018 1:14 PM EDT
[2018-07-18] MEDS: Famotidine 20 MG Tablet PO SCH (20:35)
[2018-07-18] MEDS: Insulin Detemir Inj 1,000 UNIT/10 ML Vial SQ SCH (20:38)
[2018-07-18] MEDS: Montelukast 10 MG Tablet PO SCH (22:00)
[2018-07-19] MEDS: Heparin - SQ 10,000 UNITS/ML Vial SQ SCH ×3 (05:57→20:33)
[2018-07-19] MEDS: diazePAM 5 MG Tablet PO SCH ×3 (06:00→23:11)
[2018-07-19] MEDS: Famotidine 20 MG Tablet PO SCH ×2 (08:29→20:31)
[2018-07-19] MEDS: Senna/Docusate Sodium 8.6/50 MG Tablet PO SCH ×2 (08:29→20:32)
[2018-07-19] MEDS: Varenicline 1 MG Tablet PO SCH ×2 (08:29→20:31)
[2018-07-19] MEDS: guaiFENesin 600 MG ER Tablet PO SCH ×2 (08:30→20:31)
[2018-07-19] MEDS: Dicyclomine 10 MG Capsule PO SCH ×4 (08:31→20:31)
[2018-07-19] MEDS: Insulin NovoLOG Aspart Correctional Sugar Inj SQ SCH ×4 (08:34→20:59)
[2018-07-19] MEDS ORDERED: MethylPREDNISolone Sod Succinate Inj 40 MG/ML Vial IV.PUSH SCH (09:00)
[2018-07-19 09:07] LABS: Baso % (Auto) 0.1 % (0.0-2.0); Eos % (Auto) 0.1 % (0.0-4.0); Hemoglobin 12.4 gm/dL (13.0-17.0); Lymph # (Auto) 1.6 th/mm3 (1.0-4.8); Lymph % (Auto) 13.6 % (9.0-44.0); Mean Corpuscular HGB Conc 32.7 % (32.0-36.0); Mean Corpuscular Hemoglobin 26.3 pg (27.0-34.0); Mean Corpuscular Volume 80.4 fL (80.0-100.0); Mono % (Auto) 8.9 % (0.0-8.0); Neut # (Auto) 8.9 th/mm3 (1.8-7.7); Neut % (Auto) 77.3 % (16.0-70.0); Platelet Count 306 th/mm3 (150-450); Red Blood Count 4.73 mil/mm3 (4.50-5.90); Red Cell Distribution Width 16.8 % (11.6-17.2); White Blood Count 11.6 th/mm3 (4.0-11.0)
[2018-07-19 09:34] LABS: Calcium 8.9 mg/dL (8.5-10.1); Carbon Dioxide 30.7 meq/L (21.0-32.0); Potassium 4.1 meq/L (3.5-5.1)
--- NOTE | 2018-07-19 10:57 | P.PNPL ---
Subjective Interval history: Patient is lying in bed in NAD. Afebrile. Physical Exam Vital signs: Vital Signs 07/18/18 12:00 07/18/18 13:55 07/18/18 16:00 Temperature 97.4 F L 97.9 F Pulse Rate 101 H 101 H 101 H Respiratory Rate 20 18 20 Blood Pressure 156/85 H 138/64 Pulse Oximetry 95 95 07/18/18 19:45 07/18/18 19:46 07/18/18 20:00 Temperature 97.9 F Pulse Rate 101 H 97 H Respiratory Rate 20 22 Blood Pressure 125/71 Pulse Oximetry 95 95 07/18/18 22:38 07/19/18 00:00 07/19/18 00:16 Temperature 97.4 F L Pulse Rate 97 H 103 H 90 Respiratory Rate 22 22 17 Blood Pressure 120/76 Pulse Oximetry 94 L 07/19/18 02:50 07/19/18 04:00 07/19/18 08:00 Temperature 97.3 F L 97.3 F L Pulse Rate 103 H 99 H 108 H Respiratory Rate 20 20 21 Blood Pressure 134/83 132/81 Pulse Oximetry 99 93 L 07/19/18 08:29 Temperature Pulse Rate 111 H Respiratory Rate 16 Blood Pressure Pulse Oximetry 92 L Intake & Output 07/18/18 07/19/18 07/19/18 18:59 06:59 18:59 Intake Total 150 / 150 Output Total 200 / 200 200 / 200 Balance -200 / -200 -50 / -50 Weight 71 kg Intake: IV 150 / 150 Levaquin 750 mg Premix Inj 150 150 / 150 ML @ 100 mls/hr IV.SIG Q24H [facility] Rx#:[id number] Output: Urine 200 / 200 200 / 200 - Constitutional no acute distress - Routine HEENT Exam Head: Present: normocephalic, atraumatic Eye: Present: EOMI, PERRL, normal accommodation, conjunctivae pink ENT: Present: mucous membranes moist - Routine Neck Exam Present: supple, full ROM, trachea midline - Routine Respiratory Exam Present: CTA bilaterally - Routine Cardiovascular Exam Present: RRR, S1, S2 - Routine Abdominal Exam Present: soft, normoactive bowel sounds - Routine Extremities Exam Present: full ROM, pulses intact - Routine Skin Exam Present: intact, dry - Routine Neurological Exam Present: alert, oriented X3, CN II-XII intact Assessment and Plan - Plan 1)Resp Insuff 2)COPD- on 3L home oxygen 3)Bibasilar patchy infiltrates with atelectasis 4)6mm Left lung nodule Plan Continue with oxygen keep sats >92% Bronchodilators- on DuoNeb and Pulmicort Incentive spirometry Taper steroids-solumederol 40mg IV daily BIPAP PRN for resp distress continue with abx ( Levaquin)change to PO monitor for signs of infections ( Fever, WBC) Doppler US LE negative for DVT GI/DVT prophylaxis- on Heparin SQ Palliative care is following- No code DNR
--- NOTE | 2018-07-19 14:03 | XR ---
EXAM DATE: 07/19/2018 1:59 PM EDT AGE/SEX: 67 years / Male INDICATIONS: Shortness of breath. CLINICAL DATA: This is the patient's subsequent encounter. Patient reports that signs and symptoms h ave been present for 1 week and indicates a pain score of 0/10. MEDICAL/SURGICAL HISTORY: Hypertension. COPD. Diabetic. None. COMPARISON: [facility] [place], CT CHEST W/O CONTRAST, 07/16/2018. . FINDINGS: There is hyperinflation and attenuation of the lung markings characteristic of severe emphysema. Ther e is patchy consolidation in the right lower lobe. Left lung is clear. CONCLUSION: Severe emphysema and right lower lobe airspace disease. Electronically signed by: Aniket Last MD 07/19/2018 2:02 PM EDT
--- NOTE | 2018-07-19 15:02 | P.PNIM ---
Subjective Interval history: Mr. Nelson was afebrile with HR ~110 bpm and intermittent tachypnea today (RR in mid 20's); he states that he has been feeling more tired today. Patient also states that he has decided he no longer wants to go to rehab and wants to go home. Per discussion with nursing staff, patient has been having difficulty with waiting for nebulizer treatments. Per patient, he has stated he uses nebulizers for several breaths every few hours before stopping rather than completing treatments Patient later interviewed in the company of nursing staff, he reports that he has had difficulty urinating and that he has only urinated slightly today (< 100ml in bedside urinal). He also states he has been drinking less and has had increased right flank pain which is unusual for him. This pain resolved with pain medications. Physical Exam Vital signs: Vital Signs 07/18/18 16:00 07/18/18 19:45 07/18/18 19:46 Temperature 97.9 F Pulse Rate 101 H 101 H Respiratory Rate 20 20 Blood Pressure 138/64 Pulse Oximetry 95 95 07/18/18 20:00 07/18/18 22:38 07/19/18 00:00 Temperature 97.9 F 97.4 F L Pulse Rate 97 H 97 H 103 H Respiratory Rate 22 22 22 Blood Pressure 125/71 120/76 Pulse Oximetry 95 94 L 07/19/18 00:16 07/19/18 02:50 07/19/18 04:00 Temperature 97.3 F L Pulse Rate 90 103 H 99 H Respiratory Rate 17 20 20 Blood Pressure 134/83 Pulse Oximetry 99 07/19/18 08:00 07/19/18 08:29 07/19/18 11:12 Temperature 97.3 F L Pulse Rate 108 H 111 H 92 H Respiratory Rate 21 16 14 Blood Pressure 132/81 Pulse Oximetry 93 L 92 L 07/19/18 12:00 07/19/18 14:34 Temperature 97.5 F L Pulse Rate 115 H 115 H Respiratory Rate 27 H 26 H Blood Pressure 96/57 L Pulse Oximetry 90 L Intake & Output 07/18/18 07/19/18 07/19/18 18:59 06:59 18:59 Intake Total 150 / 150 Output Total 200 / 200 200 / 200 Balance -200 / -200 -50 / -50 Weight 71 kg Intake: IV 150 / 150 Levaquin 750 mg Premix Inj 150 150 / 150 ML @ 100 mls/hr IV.SIG Q24H [facility] Rx#:[id number] Output: Urine 200 / 200 200 / 200 Narrative: GENERAL: No acute distress SKIN: Warm and dry. No rashes EENT: Moist mucous membranes. EOM grossly I CARDIOVASCULAR: Regular rate and rhythm; no murmurs. Normal perfusion grossly RESPIRATORY: Bilateral wheezing; tachypnea on exam; on 4L O2 via [place] GASTROINTESTINAL: No abd or flank pain currently. Abdomen prominent, seems more distended than prior eval MUSCULOSKELETAL: RLE larger than L; patient states is chronic NEURO: Grossly normal CN. Grossly normal peripheral motor/sensory function Results - Labs CBC & Chem 7: 07/19/18 08:43 07/19/18 08:43 Laboratory Results - last 24 hr 07/18/18 07/18/18 07/19/18 16:11 20:21 08:15 WBC RBC Hgb Hct MCV MCH MCHC RDW Plt Count MPV Neut % (Auto) Lymph % (Auto) [place] % (Auto) Eos % (Auto) Baso % (Auto) Neut # (Auto) Lymph # (Auto) [place] # (Auto) Eos # (Auto) Baso # (Auto) WBC Differential Differential Comment Sodium Potassium Chloride Carbon Dioxide Anion Gap BUN Creatinine Estimated GFR POC Glucose 315 H 238 H 180 H Random Glucose Calcium 07/19/18 07/19/18 07/19/18 08:43 08:43 12:05 WBC 11.6 H RBC 4.73 Hgb 12.4 L Hct 38.0 L MCV 80.4 MCH 26.3 L MCHC 32.7 RDW 16.8 Plt Count 306 MPV 8.0 Neut % (Auto) 77.3 H Lymph % (Auto) 13.6 [place] % (Auto) 8.9 H Eos % (Auto) 0.1 Baso % (Auto) 0.1 Neut # (Auto) 8.9 H Lymph # (Auto) 1.6 [place] # (Auto) 1.0 H Eos # (Auto) 0.0 Baso # (Auto) 0.0 WBC Differential . Differential Comment Auto diff final Sodium 141 Potassium 4.1 Chloride 104 Carbon Dioxide 30.7 Anion Gap 6 BUN 26 H Creatinine 0.88 Estimated GFR 86 L POC Glucose 215 H Random Glucose 149 H Calcium 8.9 - Imaging Impressions Chest X-Ray 07/19/18 00:00 CONCLUSION: Severe emphysema and right lower lobe airspace disease. - Procedures NONE Assessment and Plan - Assessment (1) Urinary calculi Code(s): N20.9 - Urinary calculus, unspecified Status: Acute (2) COPD with acute exacerbation Code(s): J44.1 - Chronic obstructive pulmonary disease with (acute) exacerbation Status: Acute (3) Acute respiratory distress Code(s): R06.03 - Acute respiratory distress Status: Acute - Plan Mr. Nelson is a 67 yo M with: Respiratory Pneumonia Patient presented in respiratory failure Impression: On 4L [place] O2; generally uses [address] Chest 07/16- bilateral infiltrates greater R lobe; not changed. Atelectasis in RLL anteriorly. 6mm nodule LLL. Coronary calcifications. Severe emphysema CXR 07/19- severe emphysemal RLL airspace disease 07/19- patient seemed to be doing worse this afternoon with RR 27, more wheezing on exam, WBC increase, BP 96/57 this afternoon. patient met sepsis criteria with HR, RR, CXR findings. Lactic acid wnl -Pulmonology consulted -Continue O2 -Continue Solumedrol Will continue current dose since tachypneic/wheezing today and reattempt wean in near future Extra solumedrol 125mg x1 given today for tachypnea/wheezing -Continue duonebs, budesonide nebs as needed; patient encouraged to use inhalers instead of Nebulizers to achieve full treatment since concern he is not using full neb treatments -Continue Acapella, IS -Continue Mucinex -Continue antibiotics -Levaquin 750mg daily -Zosyn resumed today in case decline was temporally associated with stopping Zosyn recently -Continue PT; increase activity -Continue BiPAP as needed Nephrolithiasis Impression: Patient has a long-standing history of recurrent nephrolithiasis, multiple kidney stones in both kidneys He presented with gross hematuria, CT shows 14 mm stone in the ureteropelvic junction 07/19- report of decreased urine output, R flank pain Urine culture negative 07/14 -Urology consulted-no intervention needed at this time; plan for outpatient management. If fever or pain hard to control, nephrostomy per IR recommended -Continue Levaquin -Repeat UA today for reported R sided pain, urinary changes -Will repeat Urinary tract US if pain persistent or worsening GI Impression: patient reports decreased oral intake; not drinking much -oral intake advised -IVF resumed for tachycardia, concern for early dehydration Diabetes mellitus Impression: A1C 8.2 Continue Levemir nightly Continue sliding-scale coverage with Accu-Cheks Continue 1800-calorie diabetic diet Anxiety, dyslipidemia, tobacco dependency Continue diazepam, atorvastatin, Chantix Patient met with patient during hospitalization DVT Prophylaxis Heparin Discharge Planning: Pending respiratory improvement/discharge planning
[2018-07-19] MEDS ORDERED: MethylPREDNISolone Sod Succinate Inj 40 MG/ML Vial IV.PUSH ONE (16:00)
[2018-07-19] MEDS: Piperacil/Tazo 3.375 GM Premix 50 ML IV.SIG SCH ×2 (16:09→23:12)
[2018-07-19] MEDS: Sod Chloride 0.9% Inj 1,000 ML IV.CONT SCH ×2 (16:09→23:37)
[2018-07-19] MEDS ORDERED: Sodium Chlor 0.9% Inj 1,000 ML IV.SIG SCH (19:00)
[2018-07-19] MEDS: Montelukast 10 MG Tablet PO SCH (20:31)
[2018-07-19] MEDS: Budesonide-Formoterol 160/4.5 MCG 6 GM Inhaler INH SCH (20:31)
[2018-07-19] MEDS: MethylPREDNISolone Sod Succinate Inj 40 MG/ML Vial IV.PUSH SCH (20:32)
[2018-07-19 20:46] LABS: Bilirubin,Urine Negative (Negative); Clarity,Urine Hazy (Clear); Color,Urine Yellow (Yellw/Straw); Glucose,Urine (UA) 500 or Greater mg/dL (Negative); Leukocyte Esterase,Urine Small (Negative); Mucus,Urine Few /lpf (Occasional); Nitrite,Urine Negative (Negative); Specific Gravity,Urine 1.018 (1.002-1.035)
[2018-07-19] MEDS: Insulin Detemir Inj 1,000 UNIT/10 ML Vial SQ SCH (20:59)
[2018-07-20] MEDS: Sod Chloride 0.9% Inj 1,000 ML IV.CONT SCH ×3 (04:08→23:15)
[2018-07-20] MEDS: Heparin - SQ 10,000 UNITS/ML Vial SQ SCH ×3 (05:23→20:00)
[2018-07-20] MEDS: Piperacil/Tazo 3.375 GM Premix 50 ML IV.SIG SCH ×4 (05:23→23:15)
[2018-07-20] MEDS: diazePAM 5 MG Tablet PO SCH ×3 (06:13→23:15)
[2018-07-20] MEDS: Insulin Detemir Inj 1,000 UNIT/10 ML Vial SQ SCH ×4 (09:07→20:07)
[2018-07-20] MEDS: Insulin NovoLOG Aspart Correctional Sugar Inj SQ SCH ×4 (09:08→20:08)
[2018-07-20] MEDS: Varenicline 1 MG Tablet PO SCH ×2 (09:09→19:59)
[2018-07-20] MEDS: guaiFENesin 600 MG ER Tablet PO SCH ×2 (09:09→19:59)
[2018-07-20] MEDS: Famotidine 20 MG Tablet PO SCH ×2 (09:09→19:59)
[2018-07-20] MEDS: MethylPREDNISolone Sod Succinate Inj 40 MG/ML Vial IV.PUSH SCH ×3 (09:10→20:00)
[2018-07-20] MEDS: Senna/Docusate Sodium 8.6/50 MG Tablet PO SCH ×2 (09:10→20:00)
[2018-07-20] MEDS: Dicyclomine 10 MG Capsule PO SCH ×4 (09:11→20:00)
[2018-07-20] MEDS: Budesonide-Formoterol 160/4.5 MCG 6 GM Inhaler INH SCH ×2 (09:23→20:00)
--- NOTE | 2018-07-20 10:26 | US ---
EXAM DATE: 07/20/2018 10:15 AM EDT AGE/SEX: 67 years / Male INDICATIONS: Flank pain. CLINICAL DATA: This is the patient's initial encounter. Patient reports that signs and symptoms have been present for 4 - 6 days and indicates a pain score of 7/10. MEDICAL/SURGICAL HISTORY: . COPD. Diabetes. HTN. None. COMPARISON: [facility] – [place], CT ABDOMEN & PELVIS W/O CONTRAST, 07/14/2018. . MEASUREMENTS: Right Kidney:__10.7 x 5.3 x 4.7 cm Left Kidney:__12.0 x 5.3 x 6.3 cm FINDINGS: Right Kidney: Increased echotexture with small renal cyst. Left Kidney: Increased echogenicity with scattered small renal cyst and [address] one stone in the the pelvis with mild dilatation. Bladder: Within normal limits given the degree of distension. Other: None. CONCLUSION: 1. Echogenic kidneys with partially obstructing 1 cm stone left renal pelvis. Electronically signed by: Leon Casey MD 07/20/2018 10:25 AM EDT
--- NOTE | 2018-07-20 10:47 | P.PNPL ---
Subjective Interval history: Patient remains on 3L oxygen. Afebrile. Physical Exam Vital signs: Vital Signs 07/19/18 11:12 07/19/18 12:00 07/19/18 14:34 Temperature 97.5 F L Pulse Rate 92 H 115 H 115 H Respiratory Rate 14 27 H 26 H Blood Pressure 96/57 L Pulse Oximetry 90 L 07/19/18 15:54 07/19/18 16:00 07/19/18 20:00 Temperature 96.6 F L 97.0 F L Pulse Rate 87 112 H 104 H Respiratory Rate 14 26 H 18 Blood Pressure 122/63 117/72 Pulse Oximetry 91 L 100 07/19/18 20:17 07/19/18 20:18 07/19/18 22:47 Temperature Pulse Rate 101 H 101 H 105 H Respiratory Rate 17 24 Blood Pressure Pulse Oximetry 97 07/20/18 00:00 07/20/18 00:10 07/20/18 04:00 Temperature 97.8 F 98.9 F Pulse Rate 94 H 91 H 69 Respiratory Rate 19 16 Blood Pressure 149/80 H 174/80 H Pulse Oximetry 94 L 94 L 07/20/18 04:07 07/20/18 08:00 07/20/18 08:32 Temperature 97.3 F L Pulse Rate 90 87 90 Respiratory Rate 17 18 20 Blood Pressure 120/67 Pulse Oximetry 94 L 91 L 07/20/18 08:47 Temperature Pulse Rate Respiratory Rate Blood Pressure Pulse Oximetry 99 Intake & Output 07/19/18 07/20/18 07/20/18 18:59 06:59 18:59 Intake Total 50 / 50 1730 / 1730 Output Total 200 / 200 700 / 700 Balance -150 / -150 1030 / 1030 Weight 72.2 kg Intake: IV 50 / 50 1250 / 1250 NS Inj 1,000 ML @ 100 mls/hr IV 1000 / 1000 .CONT .Q10H [facility] Rx#:[id number] Levaquin 750 mg Premix Inj 150 150 / 150 ML @ 100 mls/hr IV.SIG Q24H [facility] Rx#:[id number] Zosyn 3.375 GM Premix 50 ML @ 50 / 50 100 / 100 100 mls/hr IV.SIG Q6H [facility] Rx#: [id number] Oral 480 / 480 Output: Urine 200 / 200 700 / 700 Other: # Bowel Movements 0 - Constitutional no acute distress - Routine HEENT Exam Head: Present: normocephalic, atraumatic Eye: Present: EOMI, PERRL, conjunctivae pink ENT: Present: mucous membranes moist - Routine Neck Exam Present: supple, full ROM, trachea midline - Routine Respiratory Exam Present: CTA bilaterally - Routine Cardiovascular Exam Present: RRR, S1, S2 - Routine Abdominal Exam Present: soft, normoactive bowel sounds - Routine Extremities Exam Present: pulses intact - Routine Skin Exam Present: intact, dry - Routine Neurological Exam Present: alert, oriented X3, CN II-XII intact - Routine Psychiatric Exam Present: normal affect Assessment and Plan - Plan 1)Resp Insuff 2)COPD- on 3L home oxygen 3)Bibasilar patchy infiltrates with atelectasis 4)6mm Left lung nodule Plan Continue with oxygen keep sats >92% Bronchodilators- on DuoNeb and Pulmicort Incentive spirometry Change solumederol 40mg IV Q6h BIPAP PRN for resp distress CXR 07/19: emphysema and RLL airspace disease continue with abx ( Levaquin) monitor for signs of infections ( Fever, WBC) Check sputum cx Doppler US LE negative for DVT GI/DVT prophylaxis- on Heparin SQ Palliative care is following- No code DNR
--- NOTE | 2018-07-20 14:05 | P.PNIM ---
Subjective Interval history: Mr. Nelson was afebrile with stable VS overnight; HR ~100bpm. O2 sats in low 90 's on 3-5 L NC O2. 1150ml urine output overnight. Patient reports that he is doing ok at this time; he still has shortness of breath. He feels that respiratory treatments help intermittently. Patient has had some intermittent difficulty urinating. He also reports occasional right sided flank pain but this resolves spontaneously or with pain medication. Patient states he will notify staff if pain worsens or is persistent. Physical Exam Vital signs: Vital Signs 07/19/18 14:34 07/19/18 15:54 07/19/18 16:00 Temperature 96.6 F L Pulse Rate 115 H 87 112 H Respiratory Rate 26 H 14 26 H Blood Pressure 122/63 Pulse Oximetry 91 L 07/19/18 20:00 07/19/18 20:17 07/19/18 20:18 Temperature 97.0 F L Pulse Rate 104 H 101 H 101 H Respiratory Rate 18 17 Blood Pressure 117/72 Pulse Oximetry 100 97 07/19/18 22:47 07/20/18 00:00 07/20/18 00:10 Temperature 97.8 F Pulse Rate 105 H 94 H 91 H Respiratory Rate 24 19 Blood Pressure 149/80 H Pulse Oximetry 94 L 07/20/18 04:00 07/20/18 04:07 07/20/18 08:00 Temperature 98.9 F 97.3 F L Pulse Rate 69 90 87 Respiratory Rate 16 17 18 Blood Pressure 174/80 H 120/67 Pulse Oximetry 94 L 94 L 07/20/18 08:32 07/20/18 08:47 07/20/18 11:58 Temperature 98.0 F Pulse Rate 90 94 H Respiratory Rate 20 18 Blood Pressure 107/63 Pulse Oximetry 91 L 99 98 07/20/18 12:12 Temperature Pulse Rate 99 H Respiratory Rate 24 Blood Pressure Pulse Oximetry Intake & Output 07/19/18 07/20/18 07/20/18 18:59 06:59 18:59 Intake Total 50 / 50 1730 / 1730 1000 / 1000 Output Total 200 / 200 700 / 700 Balance -150 / -150 1030 / 1030 1000 / 1000 Weight 72.2 kg Intake: IV 50 / 50 1250 / 1250 1000 / 1000 NS Inj 1,000 ML @ 100 mls/hr IV 1000 / 1000 1000 / 1000 .CONT .Q10H [facility] Rx#:[id number] Levaquin 750 mg Premix Inj 150 150 / 150 ML @ 100 mls/hr IV.SIG Q24H [facility] Rx#:[id number] Zosyn 3.375 GM Premix 50 ML @ 50 / 50 100 / 100 100 mls/hr IV.SIG Q6H [facility] Rx#: [id number] Oral 480 / 480 Output: Urine 200 / 200 700 / 700 Other: # Bowel Movements 0 Narrative: GENERAL: No acute distress SKIN: Warm and dry. No rashes EENT: Moist mucous membranes. EOM grossly I CARDIOVASCULAR: Regular rate and rhythm; no murmurs. Normal perfusion grossly RESPIRATORY: Mild expiratory wheezing; improved from last exam. RR ~20. On 4L O2 via [place] GASTROINTESTINAL: No abd or flank pain currently, prominent abdomen; nontender MUSCULOSKELETAL: No calf pain. RLE asymmetrically larger; patient states this is chronic NEURO: Grossly normal CN. Grossly normal peripheral motor/sensory function Results - Labs CBC & Chem 7: 07/19/18 08:43 07/19/18 08:43 Laboratory Results - last 24 hr 07/19/18 07/19/18 07/19/18 16:22 17:05 20:30 POC Glucose 351 H Lactic Acid 1.6 Urine Color Yellow Urine Clarity Hazy H Urine pH 7.0 Ur Specific [place] 1.018 Urine Protein Negative Urine Glucose (UA) 500 or greater Urine Ketones Negative Urine Occult Blood Large H Urine Nitrate Negative Urine Bilirubin Negative Urine Urobilinogen Less than 2 Ur Leukocyte Esterase Small H Urine RBC Urine WBC 24 H Urine Mucus Few H Micro UA Comment Culture indicated Ur Microscopic Review Not Reportable Urine Culture Comments Culture indicated 07/19/18 07/20/18 07/20/18 20:46 08:14 12:05 POC Glucose 323 H 239 H 246 H Lactic Acid Urine Color Urine Clarity Urine pH Ur Specific [place] Urine Protein Urine Glucose (UA) Urine Ketones Urine Occult Blood Urine Nitrate Urine Bilirubin Urine Urobilinogen Ur Leukocyte Esterase Urine RBC Urine WBC Urine Mucus Micro UA Comment Ur Microscopic Review Urine Culture Comments Microbiology 07/19/18 16:22 Blood - Peripheral Aerobic Blood Culture - Preliminary No growth in 1 day 07/19/18 16:22 Blood - Peripheral Anaerobic Blood Culture - Preliminary No growth in 1 day 07/19/18 16:16 Blood - Peripheral Aerobic Blood Culture - Preliminary No growth in 1 day 07/19/18 16:16 Blood - Peripheral Anaerobic Blood Culture - Preliminary No growth in 1 day - Imaging Impressions Chest X-Ray 07/19/18 00:00 CONCLUSION: Severe emphysema and right lower lobe airspace disease. Abdomen/Bladder Ultrasound 07/20/18 07:00 CONCLUSION: 1. Echogenic kidneys with partially obstructing 1 cm stone left renal pelvis. - Procedures NONE Assessment and Plan - Assessment (1) Urinary calculi Code(s): N20.9 - Urinary calculus, unspecified Status: Acute (2) COPD with acute exacerbation Code(s): J44.1 - Chronic obstructive pulmonary disease with (acute) exacerbation Status: Acute (3) Acute respiratory distress Code(s): R06.03 - Acute respiratory distress Status: Acute - Plan Mr. Nelson is a 67 yo M with: Respiratory Pneumonia Patient presented in respiratory failure Impression: On 4L [place] O2; generally uses [address] Chest 07/16- bilateral infiltrates greater R lobe; not changed. Atelectasis in RLL anteriorly. 6mm nodule LLL. Coronary calcifications. Severe emphysema CXR 07/19- severe emphysemal RLL airspace disease Sputum culture pending 07/20- improved mildly relative to prior exam with decreased wheezing -Pulmonology consulted -Continue O2 -Continue Solumedrol 40mg q6hrs per Pulmonology -Continue duonebs, budesonide nebs as needed; patient encouraged to use inhalers instead of Nebulizers to achieve full treatment since concern he is not using full neb treatments -Continue Acapella, IS -Continue Mucinex -Continue antibiotics -Levaquin 750mg daily -Zosyn resumed 07/19 -Continue PT; increase activity -Continue BiPAP as needed Nephrolithiasis Impression: Patient has a long-standing history of recurrent nephrolithiasis, multiple kidney stones in both kidneys He presented with gross hematuria, CT shows 14 mm stone in the ureteropelvic junction 07/19- report of decreased urine output, R flank pain 07/20- intermittent flank pain at baseline; improved urination Urine culture negative 07/14 Urinary tract US- echogenic kidneys with partially obstructing 1 cm stone left renal pelvis -Urology consulted-no intervention needed at this time; plan for outpatient management. If fever or pain hard to control, nephrostomy per IR recommended -Continue Levaquin -Repeat UA 07/19 suggestive of UTI; culture pending -Will repeat Urinary tract US if pain persistent or worsening GI Impression: patient reports decreased oral intake; not drinking much -oral intake advised -IVF resumed for decreased intake Diabetes mellitus Impression: A1C 8.2 Continue Levemir nightly Continue sliding-scale coverage with Accu-Cheks Continue 1800-calorie diabetic diet Anxiety, dyslipidemia, tobacco dependency Continue diazepam, atorvastatin, Chantix Patient met with patient during hospitalization DVT Prophylaxis Heparin Discharge Planning: Pending respiratory improvement/discharge planning
[2018-07-20] MEDS: Montelukast 10 MG Tablet PO SCH (20:07)
[2018-07-21] MEDS: MethylPREDNISolone Sod Succinate Inj 40 MG/ML Vial IV.PUSH SCH ×4 (05:29→20:23)
[2018-07-21] MEDS: Heparin - SQ 10,000 UNITS/ML Vial SQ SCH ×3 (05:29→20:24)
[2018-07-21 05:39] LABS: Baso % (Auto) 0.1 % (0.0-2.0); Eos % (Auto) 0.1 % (0.0-4.0); Hematocrit 29.4 % (39.0-51.0); Hemoglobin 9.8 gm/dL (13.0-17.0); Lymph # (Auto) 0.6 th/mm3 (1.0-4.8); Lymph % (Auto) 6.3 % (9.0-44.0); Mean Corpuscular HGB Conc 33.3 % (32.0-36.0); Mean Corpuscular Hemoglobin 26.8 pg (27.0-34.0); Mean Corpuscular Volume 80.3 fL (80.0-100.0); Mono # (Auto) 0.7 th/mm3 (0.0-0.9); Mono % (Auto) 7.6 % (0.0-8.0); Neut # (Auto) 7.8 th/mm3 (1.8-7.7); Neut % (Auto) 85.9 % (16.0-70.0); Platelet Count 240 th/mm3 (150-450); Red Blood Count 3.66 mil/mm3 (4.50-5.90); Red Cell Distribution Width 16.8 % (11.6-17.2); White Blood Count 9.1 th/mm3 (4.0-11.0)
[2018-07-21] MEDS: Piperacil/Tazo 3.375 GM Premix 50 ML IV.SIG SCH ×4 (05:51→21:59)
[2018-07-21] MEDS: diazePAM 5 MG Tablet PO SCH ×3 (06:01→21:59)
[2018-07-21 06:14] LABS: Alanine Aminotransferase 42 U/L (12-78); Albumin 2.5 g/dL (3.4-5.0); Alkaline Phosphatase 52 U/L (45-117); Anion Gap 6 meq/L (5-15); Aspartate Aminotransferase 24 U/L (15-37); Blood Urea Nitrogen 20 mg/dL (7-18); Calcium 8.1 mg/dL (8.5-10.1); Carbon Dioxide 28.2 meq/L (21.0-32.0); Chloride 107 meq/L (98-107); Glomerular Filtration Rate Greater Than 89 mL/min (>89); Glucose,Random 117 mg/dL (74-106); Potassium 3.9 meq/L (3.5-5.1); Sodium 141 meq/L (136-145); Total Protein 5.4 g/dL (6.4-8.2)
[2018-07-21] MEDS: Varenicline 1 MG Tablet PO SCH ×2 (08:12→20:22)
[2018-07-21] MEDS: Famotidine 20 MG Tablet PO SCH ×2 (08:12→20:21)
[2018-07-21] MEDS: guaiFENesin 600 MG ER Tablet PO SCH ×2 (08:12→20:21)
[2018-07-21] MEDS: Senna/Docusate Sodium 8.6/50 MG Tablet PO SCH ×2 (08:13→20:22)
[2018-07-21] MEDS: Insulin NovoLOG Aspart Correctional Sugar Inj SQ SCH ×4 (08:13→20:30)
[2018-07-21] MEDS: Dicyclomine 10 MG Capsule PO SCH ×4 (08:13→20:22)
[2018-07-21] MEDS: Insulin Detemir Inj 1,000 UNIT/10 ML Vial SQ SCH ×4 (08:14→20:30)
[2018-07-21] MEDS: Sod Chloride 0.9% Inj 1,000 ML IV.CONT SCH ×2 (08:15→17:00)
[2018-07-21] MEDS: Budesonide-Formoterol 160/4.5 MCG 6 GM Inhaler INH SCH ×2 (08:16→20:31)
--- NOTE | 2018-07-21 13:08 | P.PNIM ---
Subjective Interval history: Mr. Nelson was afebrile with mild HR elevation (pulse low 100's) and O2 saturations in low-mid 90's on 4-5L NCO2. Patient feels that she has had improved breathing somewhat today; he still gets very short of breath with activity. Patient has been eating more. He still gets abdominal pain intermittently which resolves spontaneously. He has been urinating well but has difficulty initiating void sometimes and also has sudden urge to void. Patient has decided to go to a rehabilitation facility once he improves. Physical Exam Vital signs: Vital Signs 07/20/18 15:33 07/20/18 16:00 07/20/18 20:00 Temperature 98.9 F 98.2 F Pulse Rate 98 H 92 H 100 H Respiratory Rate 16 18 16 Blood Pressure 125/61 Pulse Oximetry 92 L 98 07/20/18 20:05 07/20/18 20:25 07/20/18 23:58 Temperature Pulse Rate 100 H 100 H 78 Respiratory Rate 22 Blood Pressure Pulse Oximetry 93 L 07/21/18 00:00 07/21/18 00:05 07/21/18 04:00 Temperature 98.3 F 98.5 F Pulse Rate 95 H 86 92 H Respiratory Rate 16 20 16 Blood Pressure 125/89 125/75 Pulse Oximetry 97 98 07/21/18 04:15 07/21/18 07:28 07/21/18 08:00 Temperature 98.1 F Pulse Rate 88 93 H 89 Respiratory Rate 18 18 16 Blood Pressure 127/76 Pulse Oximetry 96 94 L 07/21/18 10:59 Temperature Pulse Rate 103 H Respiratory Rate 20 Blood Pressure Pulse Oximetry Intake & Output 07/20/18 07/21/18 07/21/18 18:59 06:59 18:59 Intake Total 1577 / 1577 1050 / 1050 1250 / 1250 Output Total 1150 / 1150 700 / 700 Balance 427 / 427 350 / 350 1250 / 1250 Weight 75 kg Intake: IV 1097 / 1097 1050 / 1050 1250 / 1250 NS Inj 1,000 ML @ 100 mls/hr IV 1000 / 1000 1000 / 1000 1000 / 1000 .CONT .Q10H EVGENY Rx#:[id number] Levaquin 750 mg Premix Inj 150 150 / 150 ML @ 100 mls/hr IV.SIG Q24H [facility]GENY Rx#:[id number] Zosyn 3.375 GM Premix 50 ML @ 97 / 97 50 / 50 100 / 100 100 mls/hr IV.SIG Q6H EVGENY Rx#: [id number] Oral 480 / 480 Output: Urine 1150 / 1150 700 / 700 Other: # Voids 2 Date of Last Bowel Movement 07/21/18 # Bowel Movements 2 Narrative: GENERAL: No acute distress SKIN: Warm and dry. No rashes EENT: Moist mucous membranes. EOM grossly I CARDIOVASCULAR: Regular rate and rhythm; no murmurs. Normal perfusion grossly. Some LE edema bilaterally; 1-2 + RESPIRATORY: Decreased breath sounds w/o wheezing; normal rate until he stood up to void; then tachypneic. On O2 via [place] GASTROINTESTINAL: No abd or flank pain currently, prominent abdomen; nontender MUSCULOSKELETAL: No calf pain. RLE asymmetrically larger; patient states this is chronic NEURO: Grossly normal CN. Grossly normal peripheral motor/sensory function Results - Labs CBC & Chem 7: 07/21/18 05:03 07/21/18 05:03 Laboratory Results - last 24 hr 07/20/18 07/20/18 07/21/18 17:41 20:02 05:03 WBC 9.1 RBC 3.66 L Hgb 9.8 L D Hct 29.4 L MCV 80.3 MCH 26.8 L MCHC 33.3 RDW 16.8 Plt Count 240 MPV 8.0 Neut % (Auto) 85.9 H Lymph % (Auto) 6.3 L [place] % (Auto) 7.6 Eos % (Auto) 0.1 Baso % (Auto) 0.1 Neut # (Auto) 7.8 H Lymph # (Auto) 0.6 L [place] # (Auto) 0.7 Eos # (Auto) 0.0 Baso # (Auto) 0.0 WBC Differential . Differential Comment Auto diff final Sodium Potassium Chloride Carbon Dioxide Anion Gap BUN Creatinine Estimated GFR POC Glucose 263 H 355 H Random Glucose Calcium Total Bilirubin AST ALT Alkaline Phosphatase Total Protein Albumin 07/21/18 07/21/18 07/21/18 05:03 07:21 11:23 WBC RBC Hgb Hct MCV MCH MCHC RDW Plt Count MPV Neut % (Auto) Lymph % (Auto) [place] % (Auto) Eos % (Auto) Baso % (Auto) Neut # (Auto) Lymph # (Auto) [place] # (Auto) Eos # (Auto) Baso # (Auto) WBC Differential Differential Comment Sodium 141 Potassium 3.9 Chloride 107 Carbon Dioxide 28.2 Anion Gap 6 BUN 20 H Creatinine 0.63 Estimated GFR Greater than 89 POC Glucose 160 H 233 H Random Glucose 117 H Calcium 8.1 L D Total Bilirubin 0.3 AST 24 ALT 42 Alkaline Phosphatase 52 Total Protein 5.4 L D Albumin 2.5 L Microbiology 07/19/18 16:22 Blood - Peripheral Aerobic Blood Culture - Preliminary No growth in 2 days 07/19/18 16:22 Blood - Peripheral Anaerobic Blood Culture - Preliminary No growth in 2 days 07/19/18 16:16 Blood - Peripheral Aerobic Blood Culture - Preliminary No growth in 2 days 07/19/18 16:16 Blood - Peripheral Anaerobic Blood Culture - Preliminary No growth in 2 days 07/19/18 20:30 Clean Catch Urine Urine Culture - Final No growth in 48 hours 07/20/18 14:17 Sputum - Oral Tracheal Aspirate Gram Stain - Final - Procedures NONE Assessment and Plan - Assessment (1) Urinary calculi Code(s): N20.9 - Urinary calculus, unspecified Status: Acute (2) COPD with acute exacerbation Code(s): J44.1 - Chronic obstructive pulmonary disease with (acute) exacerbation Status: Acute (3) Acute respiratory distress Code(s): R06.03 - Acute respiratory distress Status: Acute - Plan Mr. Nelson is a 67 yo M with: Respiratory Pneumonia Patient presented in respiratory failure Impression: On 4L [place] O2; generally uses [address] Chest 07/16- bilateral infiltrates greater R lobe; not changed. Atelectasis in RLL anteriorly. 6mm nodule LLL. Coronary calcifications. Severe emphysema CXR 07/19- severe emphysemal RLL airspace disease Sputum culture pending -Pulmonology consulted -Continue O2 -Continue Solumedrol; will wean to 40mg q8hrs -Continue duonebs, budesonide nebs as needed; patient encouraged to use inhalers instead of Nebulizers to achieve full treatment since concern he is not using full neb treatments -Continue Acapella, IS -Continue Mucinex -Continue antibiotics -Levaquin 750mg daily -Zosyn resumed 07/19 -Continue PT; increase activity -Continue BiPAP as needed -Will repeat CXR -Will stop IVF since suggestion of fluid overload on exam of LE's today Nephrolithiasis Impression: Patient has a long-standing history of recurrent nephrolithiasis, multiple kidney stones in both kidneys He presented with gross hematuria, CT shows 14 mm stone in the ureteropelvic junction Urine culture negative 07/14 Urine culture negative 07/19 Urinary tract US 07/20- echogenic kidneys with partially obstructing 1 cm stone left renal pelvis -Urology consulted-no intervention needed at this time; plan for outpatient management. If fever or pain hard to control, nephrostomy per IR recommended -Continue Levaquin -Will repeat Urinary tract US if pain persistent or worsening Diabetes mellitus Impression: A1C 8.2 Continue Levemir nightly Continue sliding-scale coverage with Accu-Cheks Continue 1800-calorie diabetic diet Anxiety, dyslipidemia, tobacco dependency Continue diazepam, atorvastatin, Chantix Patient met with patient during hospitalization DVT Prophylaxis Heparin Discharge Planning: Pending respiratory improvement/discharge planning
--- NOTE | 2018-07-21 14:08 | P.PN ---
Subjective Interval history: ALERT NO SOB AT REST Physical Exam Vital signs: Vital Signs 07/20/18 15:33 07/20/18 16:00 07/20/18 20:00 Temperature 98.9 F 98.2 F Pulse Rate 98 H 92 H 100 H Respiratory Rate 16 18 16 Blood Pressure 125/61 Pulse Oximetry 92 L 98 07/20/18 20:05 07/20/18 20:25 07/20/18 23:58 Temperature Pulse Rate 100 H 100 H 78 Respiratory Rate 22 Blood Pressure Pulse Oximetry 93 L 07/21/18 00:00 07/21/18 00:05 07/21/18 04:00 Temperature 98.3 F 98.5 F Pulse Rate 95 H 86 92 H Respiratory Rate 16 20 16 Blood Pressure 125/89 125/75 Pulse Oximetry 97 98 07/21/18 04:15 07/21/18 07:28 07/21/18 08:00 Temperature 98.1 F Pulse Rate 88 93 H 89 Respiratory Rate 18 18 16 Blood Pressure 127/76 Pulse Oximetry 96 94 L 07/21/18 10:59 07/21/18 12:00 Temperature 97.6 F Pulse Rate 103 H 112 H Respiratory Rate 20 16 Blood Pressure 127/62 Pulse Oximetry 96 Intake & Output 07/20/18 07/21/18 07/21/18 18:59 06:59 18:59 Intake Total 1577 / 1577 1050 / 1050 1250 / 1250 Output Total 1150 / 1150 700 / 700 Balance 427 / 427 350 / 350 1250 / 1250 Weight 75 kg Intake: IV 1097 / 1097 1050 / 1050 1250 / 1250 NS Inj 1,000 ML @ 100 mls/hr IV 1000 / 1000 1000 / 1000 1000 / 1000 .CONT .Q10H [facility] Rx#:[id number] Levaquin 750 mg Premix Inj 150 150 / 150 ML @ 100 mls/hr IV.SIG Q24H [facility] Rx#:[id number] Zosyn 3.375 GM Premix 50 ML @ 97 / 97 50 / 50 100 / 100 100 mls/hr IV.SIG Q6H [facility]GENY Rx#: [id number] Oral 480 / 480 Output: Urine 1150 / 1150 700 / 700 Other: # Voids 2 Date of Last Bowel Movement 07/21/18 # Bowel Movements 2 Narrative: GENERAL: No acute distress SKIN: Warm and dry. No rashes EENT: Moist mucous membranes. EOM grossly I CARDIOVASCULAR: Regular rate and rhythm; no murmurs. Normal perfusion grossly RESPIRATORY: Mild expiratory wheezing; improved from last exam. RR ~20. On 4L O2 via [place] GASTROINTESTINAL: No abd or flank pain currently, prominent abdomen; nontender MUSCULOSKELETAL: No calf pain. RLE asymmetrically larger; patient states this is chronic NEURO: Grossly normal CN. Grossly normal peripheral motor/sensory function Results - Labs CBC & Chem 7: 07/21/18 05:03 07/21/18 05:03 Laboratory Results - last 24 hr 07/20/18 07/20/18 07/21/18 17:41 20:02 05:03 WBC 9.1 RBC 3.66 L Hgb 9.8 L D Hct 29.4 L MCV 80.3 MCH 26.8 L MCHC 33.3 RDW 16.8 Plt Count 240 MPV 8.0 Neut % (Auto) 85.9 H Lymph % (Auto) 6.3 L [place] % (Auto) 7.6 Eos % (Auto) 0.1 Baso % (Auto) 0.1 Neut # (Auto) 7.8 H Lymph # (Auto) 0.6 L [place] # (Auto) 0.7 Eos # (Auto) 0.0 Baso # (Auto) 0.0 WBC Differential . Differential Comment Auto diff final Sodium Potassium Chloride Carbon Dioxide Anion Gap BUN Creatinine Estimated GFR POC Glucose 263 H 355 H Random Glucose Calcium Total Bilirubin AST ALT Alkaline Phosphatase Total Protein Albumin 07/21/18 07/21/18 07/21/18 05:03 07:21 11:23 WBC RBC Hgb Hct MCV MCH MCHC RDW Plt Count MPV Neut % (Auto) Lymph % (Auto) [place] % (Auto) Eos % (Auto) Baso % (Auto) Neut # (Auto) Lymph # (Auto) [place] # (Auto) Eos # (Auto) Baso # (Auto) WBC Differential Differential Comment Sodium 141 Potassium 3.9 Chloride 107 Carbon Dioxide 28.2 Anion Gap 6 BUN 20 H Creatinine 0.63 Estimated GFR Greater than 89 POC Glucose 160 H 233 H Random Glucose 117 H Calcium 8.1 L D Total Bilirubin 0.3 AST 24 ALT 42 Alkaline Phosphatase 52 Total Protein 5.4 L D Albumin 2.5 L Microbiology 07/20/18 14:17 Sputum - Oral Tracheal Aspirate Gram Stain - Final 07/20/18 14:17 Sputum - Oral Tracheal Aspirate Sputum Culture - Preliminary Heavy growth normal respiratory [place] at 24 hours 07/19/18 16:22 Blood - Peripheral Aerobic Blood Culture - Preliminary No growth in 2 days 07/19/18 16:22 Blood - Peripheral Anaerobic Blood Culture - Preliminary No growth in 2 days 07/19/18 16:16 Blood - Peripheral Aerobic Blood Culture - Preliminary No growth in 2 days 07/19/18 16:16 Blood - Peripheral Anaerobic Blood Culture - Preliminary No growth in 2 days 07/19/18 20:30 Clean Catch Urine Urine Culture - Final No growth in 48 hours - Procedures NONE Assessment and Plan - Plan IMPRESSION COPD RESPIRATORY FAILURE PLAN O2 ANTIBX BRONCHODILATORS INCREASE ACTIVITY HOME SOON
[2018-07-21] MEDS: Montelukast 10 MG Tablet PO SCH (20:21)
[2018-07-22] MEDS: Heparin - SQ 10,000 UNITS/ML Vial SQ SCH ×3 (04:02→20:45)
[2018-07-22] MEDS: MethylPREDNISolone Sod Succinate Inj 40 MG/ML Vial IV.PUSH SCH ×3 (04:03→20:39)
[2018-07-22] MEDS: Piperacil/Tazo 3.375 GM Premix 50 ML IV.SIG SCH ×4 (04:03→22:08)
[2018-07-22] MEDS: diazePAM 5 MG Tablet PO SCH ×3 (06:06→22:08)
[2018-07-22] MEDS: Famotidine 20 MG Tablet PO SCH ×2 (08:51→20:40)
[2018-07-22] MEDS: guaiFENesin 600 MG ER Tablet PO SCH ×2 (08:51→20:40)
[2018-07-22] MEDS: Insulin NovoLOG Aspart Correctional Sugar Inj SQ SCH ×4 (08:51→20:37)
[2018-07-22] MEDS: Varenicline 1 MG Tablet PO SCH ×2 (08:51→20:41)
[2018-07-22] MEDS: Dicyclomine 10 MG Capsule PO SCH ×4 (08:51→20:41)
[2018-07-22] MEDS: Senna/Docusate Sodium 8.6/50 MG Tablet PO SCH ×2 (08:51→20:41)
[2018-07-22] MEDS: Insulin Detemir Inj 1,000 UNIT/10 ML Vial SQ SCH ×4 (08:52→20:37)
[2018-07-22] MEDS: Budesonide-Formoterol 160/4.5 MCG 6 GM Inhaler INH SCH ×2 (08:52→20:44)
[2018-07-22 09:08] LABS: Baso % (Auto) 0.1 % (0.0-2.0); Hematocrit 30.4 % (39.0-51.0); Hemoglobin 10.2 gm/dL (13.0-17.0); Lymph # (Auto) 0.4 th/mm3 (1.0-4.8); Lymph % (Auto) 3.9 % (9.0-44.0); Mean Corpuscular HGB Conc 33.4 % (32.0-36.0); Mean Corpuscular Hemoglobin 26.8 pg (27.0-34.0); Mean Corpuscular Volume 80.1 fL (80.0-100.0); Mean Platelet Volume 8.1 fL (7.0-11.0); Mono # (Auto) 0.7 th/mm3 (0.0-0.9); Mono % (Auto) 6.2 % (0.0-8.0); Neut # (Auto) 9.6 th/mm3 (1.8-7.7); Neut % (Auto) 89.8 % (16.0-70.0); Platelet Count 265 th/mm3 (150-450); Red Cell Distribution Width 16.8 % (11.6-17.2); White Blood Count 10.7 th/mm3 (4.0-11.0)
[2018-07-22 09:34] LABS: Anion Gap 6 meq/L (5-15); Blood Urea Nitrogen 23 mg/dL (7-18); Calcium 8.4 mg/dL (8.5-10.1); Carbon Dioxide 28.2 meq/L (21.0-32.0); Chloride 106 meq/L (98-107); Glomerular Filtration Rate Greater Than 89 mL/min (>89); Glucose,Random 152 mg/dL (74-106); Potassium 4.2 meq/L (3.5-5.1); Sodium 140 meq/L (136-145)
--- NOTE | 2018-07-22 11:03 | P.PN ---
Subjective Interval history: ALERT NAD Physical Exam Vital signs: Vital Signs 07/21/18 12:00 07/21/18 15:52 07/21/18 16:00 Temperature 97.6 F 97.4 F L Pulse Rate 112 H 112 H 106 H Respiratory Rate 16 22 20 Blood Pressure 127/62 115/61 Pulse Oximetry 96 93 L 07/21/18 17:14 07/21/18 19:53 07/21/18 20:00 Temperature 98.4 F Pulse Rate 108 H 116 H Respiratory Rate 18 Blood Pressure 149/81 H Pulse Oximetry 93 L 96 07/21/18 20:32 07/22/18 00:00 07/22/18 00:42 Temperature 98.1 F Pulse Rate 103 H 89 84 Respiratory Rate 20 18 20 Blood Pressure 134/79 Pulse Oximetry 97 97 07/22/18 03:58 07/22/18 04:00 07/22/18 07:29 Temperature 97.4 F L Pulse Rate 100 H 103 H Respiratory Rate 17 18 Blood Pressure 142/88 H Pulse Oximetry 95 95 07/22/18 07:30 07/22/18 08:00 07/22/18 08:07 Temperature 97.7 F Pulse Rate 90 92 H Respiratory Rate 16 19 18 Blood Pressure 107/76 Pulse Oximetry Intake & Output 07/21/18 07/22/18 07/22/18 18:59 06:59 18:59 Intake Total 2900 / 2900 250 / 250 Output Total 400 / 400 300 / 300 Balance 2500 / 2500 -50 / -50 Weight 73.4 kg Intake: IV 2300 / 2300 250 / 250 NS Inj 1,000 ML @ 100 mls/hr IV 1999 .CONT .Q10H [facility]GEN[facility] Rx#:[id number] Levaquin 750 mg Premix Inj 150 150 / 150 150 / 150 ML @ 100 mls/hr IV.SIG Q24H [facility]GEN[facility] Rx#:[id number] Zosyn 3.375 GM Premix 50 ML @ 150 / 150 100 / 100 100 mls/hr IV.SIG Q6H [facility]GENY Rx#: [id number] Oral 600 / 600 Output: Urine 400 / 400 300 / 300 Other: # Voids 1 Date of Last Bowel Movement 07/21/18 07/21/18 # Bowel Movements 1 Narrative: GENERAL: No acute distress SKIN: Warm and dry. No rashes EENT: Moist mucous membranes. EOM grossly I CARDIOVASCULAR: Regular rate and rhythm; no murmurs. Normal perfusion grossly. Some LE edema bilaterally; 1-2 + RESPIRATORY: Decreased breath sounds w/o wheezing; normal rate until he stood up to void; then tachypneic. On O2 via [place] GASTROINTESTINAL: No abd or flank pain currently, prominent abdomen; nontender MUSCULOSKELETAL: No calf pain. RLE asymmetrically larger; patient states this is chronic NEURO: Grossly normal CN. Grossly normal peripheral motor/sensory function Results - Labs CBC & Chem 7: 07/22/18 08:27 07/22/18 08:27 Laboratory Results - last 24 hr 07/21/18 07/21/18 07/21/18 11:23 16:05 20:18 WBC RBC Hgb Hct MCV MCH MCHC RDW Plt Count MPV Neut % (Auto) Lymph % (Auto) [place] % (Auto) Eos % (Auto) Baso % (Auto) Neut # (Auto) Lymph # (Auto) [place] # (Auto) Eos # (Auto) Baso # (Auto) WBC Differential Differential Comment Sodium Potassium Chloride Carbon Dioxide Anion Gap BUN Creatinine Estimated GFR POC Glucose 233 H 259 H 253 H Random Glucose Calcium 07/22/18 07/22/18 07/22/18 07:11 08:27 08:27 WBC 10.7 RBC 3.80 L Hgb 10.2 L Hct 30.4 L MCV 80.1 MCH 26.8 L MCHC 33.4 RDW 16.8 Plt Count 265 MPV 8.1 Neut % (Auto) 89.8 H Lymph % (Auto) 3.9 L [place] % (Auto) 6.2 Eos % (Auto) 0.0 Baso % (Auto) 0.1 Neut # (Auto) 9.6 H Lymph # (Auto) 0.4 L [place] # (Auto) 0.7 Eos # (Auto) 0.0 Baso # (Auto) 0.0 WBC Differential . Differential Comment Auto diff final Sodium 140 Potassium 4.2 Chloride 106 Carbon Dioxide 28.2 Anion Gap 6 BUN 23 H Creatinine 0.68 Estimated GFR Greater than 89 POC Glucose 162 H Random Glucose 152 H Calcium 8.4 L 07/22/18 10:56 WBC RBC Hgb Hct MCV MCH MCHC RDW Plt Count MPV Neut % (Auto) Lymph % (Auto) [place] % (Auto) Eos % (Auto) Baso % (Auto) Neut # (Auto) Lymph # (Auto) [place] # (Auto) Eos # (Auto) Baso # (Auto) WBC Differential Differential Comment Sodium Potassium Chloride Carbon Dioxide Anion Gap BUN Creatinine Estimated GFR POC Glucose 250 H Random Glucose Calcium Microbiology 07/19/18 16:22 Blood - Peripheral Aerobic Blood Culture - Preliminary No growth in 3 days 07/19/18 16:22 Blood - Peripheral Anaerobic Blood Culture - Preliminary No growth in 3 days 07/19/18 16:16 Blood - Peripheral Aerobic Blood Culture - Preliminary No growth in 3 days 07/19/18 16:16 Blood - Peripheral Anaerobic Blood Culture - Preliminary No growth in 3 days 07/20/18 14:17 Sputum - Oral Tracheal Aspirate Gram Stain - Final 07/20/18 14:17 Sputum - Oral Tracheal Aspirate Sputum Culture - Preliminary Heavy growth normal respiratory [place] at 24 hours 07/19/18 20:30 Clean Catch Urine Urine Culture - Final No growth in 48 hours - Procedures NONE Assessment and Plan - Plan IMPRESSION COPD RESPIRATORY FAILURE PLAN O2 ANTIBX BRONCHODILATORS INCREASE ACTIVITY HOME SOON
--- NOTE | 2018-07-22 14:00 | XR ---
EXAM DATE: 07/22/2018 12:00 AM EDT AGE/SEX: 67 years / Male INDICATIONS: Short of breath. CLINICAL DATA: This is the patient's subsequent encounter. Patient reports that signs and symptoms h ave been present for 1 week and indicates a pain score of 0/10. MEDICAL/SURGICAL HISTORY: . Hypertension. COPD. Diabetic None. COMPARISON: [facility] [place], CHEST 1V SINGLE AP, 07/19/2018. . FINDINGS: The lungs remain hyperaerated. There has been some overall improvement with the previously noted righ t lower lung infiltrate. The left lung remains grossly clear. No new infiltrates are demonstrated. Th e heart size is stable. There are no pleural effusions or pulmonary edema. The bony structures are st able. CONCLUSION: Improving right lower lung infiltrate compared to the prior study. COPD. Electronically signed by: Torsten Ellsworth MD 07/22/2018 1:59 PM EDT
--- NOTE | 2018-07-22 15:35 | P.PNPAL ---
Reason for Visit Reason for visit: a. To assist with evaluation and management of symptoms including: pain, dypsnea, depression b. To assist medical decision maker(s) with: better understanding of current medical conditions; weighing benefits/burdens of medical treatment options; making medical treatment decisions. Subjective Subjective/Interval History: Pt resting in bed. SOB to conversation. Tachypneic. "My lungs are starting to close up again, I'm between breathing treatments." Sat 95% on 4L. Says he doesn't reallly feel any better. Anxious for his next breathing treatment. Still wants rehab, then wants to go home. he remains open to hospice discussion but isn't ready. Would consider it after his rehab. Expresses his admiration and respect for Dr Dawson. Said the hospice nurse was nice. Denies pain. Advance Directives Health Care Surrogate Name and Number: Rainer Nelson [phone] Objective Vital Signs: Vital Signs 07/21/18 15:52 07/21/18 16:00 07/21/18 17:14 Temperature 97.4 F L Pulse Rate 112 H 106 H Respiratory Rate 22 20 Blood Pressure 115/61 Pulse Oximetry 93 L 93 L 07/21/18 19:53 07/21/18 20:00 07/21/18 20:32 Temperature 98.4 F Pulse Rate 108 H 116 H 103 H Respiratory Rate 18 20 Blood Pressure 149/81 H Pulse Oximetry 96 97 07/22/18 00:00 07/22/18 00:42 07/22/18 03:58 Temperature 98.1 F Pulse Rate 89 84 100 H Respiratory Rate 18 20 17 Blood Pressure 134/79 Pulse Oximetry 97 07/22/18 04:00 07/22/18 07:29 07/22/18 07:30 Temperature 97.4 F L Pulse Rate 103 H Respiratory Rate 18 16 Blood Pressure 142/88 H Pulse Oximetry 95 95 07/22/18 08:00 07/22/18 08:07 07/22/18 12:00 Temperature 97.7 F 98.0 F Pulse Rate 90 92 H 88 Respiratory Rate 19 18 18 Blood Pressure 107/76 103/56 L Pulse Oximetry 95 07/22/18 12:06 07/22/18 12:41 Temperature Pulse Rate 103 H 82 Respiratory Rate 20 Blood Pressure Pulse Oximetry Intake & Output 0907/22/18 07/22/18 18:59 06:59 18:59 Intake Total 2900 / 2900 250 / 250 50 / 50 Output Total 400 / 400 300 / 300 Balance 2500 / 2500 -50 / -50 50 / 50 Weight 73.4 kg Intake: IV 2300 / 2300 250 / 250 50 / 50 NS Inj 1,000 ML @ 100 mls/hr IV 1999 / 1999 .CONT .Q10H [facility] Rx#:[id number] Levaquin 750 mg Premix Inj 150 150 / 150 150 / 150 ML @ 100 mls/hr IV.SIG Q24H [facility] Rx#:[id number] Zosyn 3.375 GM Premix 50 ML @ 150 / 150 100 / 100 50 / 50 100 mls/hr IV.SIG Q6H [facility] Rx#: [id number] Oral 600 / 600 Output: Urine 400 / 400 300 / 300 Other: # Voids 1 Date of Last Bowel Movement 07/21/18 07/21/18 # Bowel Movements 1 Physical Exam: CONSTITUTIONAL/GENERAL: This is an undernourished pt TUBES/LINES/DRAINS: NC SKIN: No jaundice, rashes, or lesions. + Ecchymoses on upper extremities. No wounds seen anteriorly. Skin temperature appropriate. Not diaphoretic. HEAD: Atraumatic. Normocephalic. EYES: PERRL. Extraocular motions intact. No scleral icterus. No injection or drainage. Fundi not examined. ENT: Hearing grossly normal. Nose without bleeding or purulent drainage. NECK: Trachea midline. Supple, nontender. CARDIOVASCULAR: RRR without murmurs, gallops, or rubs. Peripheral pulses symmetric RESPIRATORY/CHEST: tachypneic. +wheezes throughout. +coarse rales bilat bases. SOB to conversation GASTROINTESTINAL: Abdomen soft, non-tender, nondistended. No hepato-splenomegaly , or palpable masses. No guarding. Bowel sounds present. GENITOURINARY: Without palpable bladder distension. MUSCULOSKELETAL: Extremities without clubbing, cyanosis, or edema. No joint tenderness or effusion noted. NEUROLOGICAL: Awake and alert. Motor and sensory grossly within normal limits. Follows commands. Cognitively sharp. Moves all extremities. PSYCHIATRIC: No obvious anxiety/depression. no apparent hallucinations or other psychotic thought process. Diagnostic Tests Laboratory: Laboratory Results - last 72 hr 07/19/18 07/19/18 07/19/18 16:22 17:05 20:30 WBC RBC Hgb Hct MCV MCH MCHC RDW Plt Count MPV Neut % (Auto) Lymph % (Auto) [place] % (Auto) Eos % (Auto) Baso % (Auto) Neut # (Auto) Lymph # (Auto) [place] # (Auto) Eos # (Auto) Baso # (Auto) WBC Differential Differential Comment Sodium Potassium Chloride Carbon Dioxide Anion Gap BUN Creatinine Estimated GFR POC Glucose 351 H Random Glucose Lactic Acid 1.6 Calcium Total Bilirubin AST ALT Alkaline Phosphatase Total Protein Albumin Urine Color Yellow Urine Clarity Hazy H Urine pH 7.0 Ur Specific [place] 1.018 Urine Protein Negative Urine Glucose (UA) 500 or greater Urine Ketones Negative Urine Occult Blood Large H Urine Nitrate Negative Urine Bilirubin Negative Urine Urobilinogen Less than 2 Ur Leukocyte Esterase Small H Urine RBC Urine WBC 24 H Urine Mucus Few H Micro UA Comment Culture indicated Ur Microscopic Review Not Reportable Urine Culture Comments Culture indicated 07/19/18 07/20/18 07/20/18 20:46 08:14 12:05 WBC RBC Hgb Hct MCV MCH MCHC RDW Plt Count MPV Neut % (Auto) Lymph % (Auto) [place] % (Auto) Eos % (Auto) Baso % (Auto) Neut # (Auto) Lymph # (Auto) [place] # (Auto) Eos # (Auto) Baso # (Auto) WBC Differential Differential Comment Sodium Potassium Chloride Carbon Dioxide Anion Gap BUN Creatinine Estimated GFR POC Glucose 323 H 239 H 246 H Random Glucose Lactic Acid Calcium Total Bilirubin AST ALT Alkaline Phosphatase Total Protein Albumin Urine Color Urine Clarity Urine pH Ur Specific [place] Urine Protein Urine Glucose (UA) Urine Ketones Urine Occult Blood Urine Nitrate Urine Bilirubin Urine Urobilinogen Ur Leukocyte Esterase Urine RBC Urine WBC Urine Mucus Micro UA Comment Ur Microscopic Review Urine Culture Comments 07/20/18 07/20/18 07/21/18 17:41 20:02 05:03 WBC 9.1 RBC 3.66 L Hgb 9.8 L D Hct 29.4 L MCV 80.3 MCH 26.8 L MCHC 33.3 RDW 16.8 Plt Count 240 MPV 8.0 Neut % (Auto) 85.9 H Lymph % (Auto) 6.3 L [place] % (Auto) 7.6 Eos % (Auto) 0.1 Baso % (Auto) 0.1 Neut # (Auto) 7.8 H Lymph # (Auto) 0.6 L [place] # (Auto) 0.7 Eos # (Auto) 0.0 Baso # (Auto) 0.0 WBC Differential . Differential Comment Auto diff final Sodium Potassium Chloride Carbon Dioxide Anion Gap BUN Creatinine Estimated GFR POC Glucose 263 H 355 H Random Glucose Lactic Acid Calcium Total Bilirubin AST ALT Alkaline Phosphatase Total Protein Albumin Urine Color Urine Clarity Urine pH Ur Specific [place] Urine Protein Urine Glucose (UA) Urine Ketones Urine Occult Blood Urine Nitrate Urine Bilirubin Urine Urobilinogen Ur Leukocyte Esterase Urine RBC Urine WBC Urine Mucus Micro UA Comment Ur Microscopic Review Urine Culture Comments 07/21/18 07/21/18 07/21/18 05:03 07:21 11:23 WBC RBC Hgb Hct MCV MCH MCHC RDW Plt Count MPV Neut % (Auto) Lymph % (Auto) [place] % (Auto) Eos % (Auto) Baso % (Auto) Neut # (Auto) Lymph # (Auto) [place] # (Auto) Eos # (Auto) Baso # (Auto) WBC Differential Differential Comment Sodium 141 Potassium 3.9 Chloride 107 Carbon Dioxide 28.2 Anion Gap 6 BUN 20 H Creatinine 0.63 Estimated GFR Greater than 89 POC Glucose 160 H 233 H Random Glucose 117 H Lactic Acid Calcium 8.1 L D Total Bilirubin 0.3 AST 24 ALT 42 Alkaline Phosphatase 52 Total Protein 5.4 L D Albumin 2.5 L Urine Color Urine Clarity Urine pH Ur Specific [place] Urine Protein Urine Glucose (UA) Urine Ketones Urine Occult Blood Urine Nitrate Urine Bilirubin Urine Urobilinogen Ur Leukocyte Esterase Urine RBC Urine WBC Urine Mucus Micro UA Comment Ur Microscopic Review Urine Culture Comments 07/21/18 07/21/18 07/22/18 16:05 20:18 07:11 WBC RBC Hgb Hct MCV MCH MCHC RDW Plt Count MPV Neut % (Auto) Lymph % (Auto) [place] % (Auto) Eos % (Auto) Baso % (Auto) Neut # (Auto) Lymph # (Auto) [place] # (Auto) Eos # (Auto) Baso # (Auto) WBC Differential Differential Comment Sodium Potassium Chloride Carbon Dioxide Anion Gap BUN Creatinine Estimated GFR POC Glucose 259 H 253 H 162 H Random Glucose Lactic Acid Calcium Total Bilirubin AST ALT Alkaline Phosphatase Total Protein Albumin Urine Color Urine Clarity Urine pH Ur Specific [place] Urine Protein Urine Glucose (UA) Urine Ketones Urine Occult Blood Urine Nitrate Urine Bilirubin Urine Urobilinogen Ur Leukocyte Esterase Urine RBC Urine WBC Urine Mucus Micro UA Comment Ur Microscopic Review Urine Culture Comments 07/22/18 07/22/18 07/22/18 08:27 08:27 10:56 WBC 10.7 RBC 3.80 L Hgb 10.2 L Hct 30.4 L MCV 80.1 MCH 26.8 L MCHC 33.4 RDW 16.8 Plt Count 265 MPV 8.1 Neut % (Auto) 89.8 H Lymph % (Auto) 3.9 L [place] % (Auto) 6.2 Eos % (Auto) 0.0 Baso % (Auto) 0.1 Neut # (Auto) 9.6 H Lymph # (Auto) 0.4 L [place] # (Auto) 0.7 Eos # (Auto) 0.0 Baso # (Auto) 0.0 WBC Differential . Differential Comment Auto diff final Sodium 140 Potassium 4.2 Chloride 106 Carbon Dioxide 28.2 Anion Gap 6 BUN 23 H Creatinine 0.68 Estimated GFR Greater than 89 POC Glucose 250 H Random Glucose 152 H Lactic Acid Calcium 8.4 L Total Bilirubin AST ALT Alkaline Phosphatase Total Protein Albumin Urine Color Urine Clarity Urine pH Ur Specific [place] Urine Protein Urine Glucose (UA) Urine Ketones Urine Occult Blood Urine Nitrate Urine Bilirubin Urine Urobilinogen Ur Leukocyte Esterase Urine RBC Urine WBC Urine Mucus Micro UA Comment Ur Microscopic Review Urine Culture Comments Result Diagrams: 07/22/18 08:27 07/22/18 08:27 Microbiology: Microbiology 07/20/18 14:17 Gram Stain - Final Sputum - Oral Tracheal Aspirate Sputum Culture - Final Heavy growth normal respiratory [place] 07/19/18 16:22 Aerobic Blood Culture - Preliminary Blood - Peripheral No growth in 3 days Anaerobic Blood Culture - Preliminary No growth in 3 days 07/19/18 16:16 Aerobic Blood Culture - Preliminary Blood - Peripheral No growth in 3 days Anaerobic Blood Culture - Preliminary No growth in 3 days 07/19/18 20:30 Urine Culture - Final Clean Catch Urine No growth in 48 hours Imaging: ITS Impressions Abdomen/Pelvis CT 07/14/18 00:00 CONCLUSION: 1. Patchy basilar airspace disease with peribronchial thickening and distal airway disease. Differential diagnosis includes bronchopneumonia and aspiration. 2. 14 mm calculus at the left ureteropelvic junction with mild left hydronephrosis. No ureteral calculi. 3. Stable 4.4 cm infrarenal abdominal aortic aneurysm. Chest CT 07/16/18 00:00 CONCLUSION: 1. Bibasilar patchy infiltrates greater right lower lobe, not significantly changed. There is also some new atelectasis in the right lower lobe anteriorly compared to previous study. 2. 6 mm nodule left lower lobe. 3. Coronary artery calcifications. 4. Severe emphysema. Venous Doppler Study 07/18/18 07:00 CONCLUSION: 1. Negative for deep venous thrombosis. Abdomen/Bladder Ultrasound 07/20/18 07:00 CONCLUSION: 1. Echogenic kidneys with partially obstructing 1 cm stone left renal pelvis. Chest X-Ray 07/22/18 00:00 CONCLUSION: Improving right lower lung infiltrate compared to the prior study. COPD. Assessment and Plan - Disease Oriented Problem List (1) COPD with acute exacerbation (2) Acute respiratory distress (3) Urinary calculi Pertinent Non-Medical Issues: Psychosocial: Pt is originally from [place]. Has been in [place] 25 years. 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 His some years ago of cancer. he has 2 children who live locally. Spiritual: no Legal:pt is capacitated to make medical decisions. He has indicated that he would like his son Rainer to be his surrogate decision maker, should he become incapacitated. Ethical issues impacting care: none Important Contacts: Son Rainer Nelson [phone] Daughter Alessia Ba [phone] Prognosis: This is a 67 yo male with end stage COPD. He has lost 60 lbs in 6 months, no malignancy identified thus far. His respiratory status seems to be declining as this is his worse exacerbation yet, possibly complicated by PNA. he has smoked cigarettes up until 1 week ago. He is quite symptomatic. Oxygen dependent. His prognosis is poor as his disease process is progressive. he will continue to decline. His prognosis is poor. He is hospice appropriate should goals be in line with comfort. Code Status: No Code DNR Plan: - LEGAL DECISION MAKER - pt is capacitated to make medical decisions. He has indicated that he would like his son Rainer to be his surrogate decision maker , should he become incapacitated. - CODE STATUS- no code/DNR - GOALS - Goals aggressive for now. He is open to hospice discussions and follow up, I encouraged him to consider hospice when he is done with his rehab. "I'll need all the help I can get." - SYMPTOMS - * dyspnea - COPD, poss PNA. o2 dependent. on my eval he has some dyspnea, SOB to conversation. sat 95% on 4L via NC. has duonebs, solumedrol, pulmocort. has scheduled diazepam as well. No further recs at this time * depression/anxiety - multifactorial. depression 2/2 advancing age and disease process. anxiety likely r/t dyspnea. has diazepam 5mg q8h scheduled. consider adding SSRI. * pain - 2/2 kidney stones. denies pain on my eval. when he does have pain his pain is flank pain, intermittent, lasting 3-4 hours. has Notrees 10/325 and 5/ 325 PRN. no further recs at this time. - Palliative care will continue to follow during hospital course as condition evolves, to assist patient/decision-maker with understanding of medical conditions, weighing benefits/burdens of treatment options, for clarification of goals of treatment. Additionally will assist with any symptoms of palliative concern Attestation Attestation: To help prompt me to consider important information that might be impacting today's encounter and assessment, information from prior notes written by myself or my colleagues may have been "brought forward" into today's note. My signature on this note, however, is an attestation that I personally performed the exam, history, and/or decision-making noted today, and, unless otherwise indicated, the interactions with patient, family, and staff as well as the review of records all occurred today. I also attest that the listed assessment and stated plan reflect my best clinical judgment today based on the combination of historical information, prior notes, and today's exam/ interactions. When time spent is documented, it refers only to time spent today by the signer, or if indicated, combined time spent today by collaborating physician/nurse practitioner.
--- NOTE | 2018-07-22 18:16 | P.PN ---
Subjective Interval history: Patient is seen sitting up on side of bed. He tells me that he is waiting for his next breathing treatment and that if he goes too long between them he feels like his lungs are "closing up". He does feel like he is getting some swelling in his right ankle. This ankle was injured many years ago and will frequently swell up on him. Physical Exam Vital signs: Vital Signs 07/21/18 19:53 07/21/18 20:00 07/21/18 20:32 Temperature 98.4 F Pulse Rate 108 H 116 H 103 H Respiratory Rate 18 20 Blood Pressure 149/81 H Pulse Oximetry 96 97 07/22/18 00:00 07/22/18 00:42 07/22/18 03:58 Temperature 98.1 F Pulse Rate 89 84 100 H Respiratory Rate 18 20 17 Blood Pressure 134/79 Pulse Oximetry 97 07/22/18 04:00 07/22/18 07:29 07/22/18 07:30 Temperature 97.4 F L Pulse Rate 103 H Respiratory Rate 18 16 Blood Pressure 142/88 H Pulse Oximetry 95 95 07/22/18 08:00 07/22/18 08:07 07/22/18 12:00 Temperature 97.7 F 98.0 F Pulse Rate 90 92 H 88 Respiratory Rate 19 18 18 Blood Pressure 107/76 103/56 L Pulse Oximetry 95 07/22/18 12:06 07/22/18 12:41 07/22/18 16:00 Temperature 97.7 F Pulse Rate 103 H 82 90 Respiratory Rate 20 22 Blood Pressure 137/84 Pulse Oximetry 95 Intake & Output 07/21/18 07/22/18 07/22/18 18:59 06:59 18:59 Intake Total 2900 / 2900 250 / 250 100 / 100 Output Total 400 / 400 300 / 300 650 / 650 Balance 2500 / 2500 -50 / -50 -550 / -550 Weight 73.4 kg Intake: IV 2300 / 2300 250 / 250 100 / 100 NS Inj 1,000 ML @ 100 mls/hr IV 1999 / 1999 .CONT .Q10H [facility] Rx#:[id number] Levaquin 750 mg Premix Inj 150 150 / 150 150 / 150 ML @ 100 mls/hr IV.SIG Q24H [facility] Rx#:[id number] Zosyn 3.375 GM Premix 50 ML @ 150 / 150 100 / 100 100 / 100 100 mls/hr IV.SIG Q6H [facility] Rx#: [id number] Oral 600 / 600 Output: Urine 400 / 400 300 / 300 650 / 650 Other: # Voids 1 Date of Last Bowel Movement 07/21/18 07/21/18 # Bowel Movements 1 Narrative: GENERAL: Well-nourished, well-developed adult male in no obvious distress. SKIN: Warm and dry. HEAD: Atraumatic. Normocephalic. CARDIOVASCULAR: Regular rate and rhythm. RESPIRATORY: Accessory muscle use; tripoding. Wheezes bilateral. GASTROINTESTINAL: Abdomen soft, non-tender, non-distended. Positive bowel sounds. MUSCULOSKELETAL: No obvious deformities. Generalized edema bilateral ankles greater right than left. NEUROLOGICAL: Awake and alert. No obvious cranial nerve deficits. Motor grossly within normal limits. Normal speech. PSYCHIATRIC: Appropriate mood and affect; insight and judgment good. Results - Labs CBC & Chem 7: 07/22/18 08:27 07/22/18 08:27 Laboratory Results - last 24 hr 07/21/18 07/22/18 07/22/18 20:18 07:11 08:27 WBC 10.7 RBC 3.80 L Hgb 10.2 L Hct 30.4 L MCV 80.1 MCH 26.8 L MCHC 33.4 RDW 16.8 Plt Count 265 MPV 8.1 Neut % (Auto) 89.8 H Lymph % (Auto) 3.9 L [place] % (Auto) 6.2 Eos % (Auto) 0.0 Baso % (Auto) 0.1 Neut # (Auto) 9.6 H Lymph # (Auto) 0.4 L [place] # (Auto) 0.7 Eos # (Auto) 0.0 Baso # (Auto) 0.0 WBC Differential . Differential Comment Auto diff final Sodium Potassium Chloride Carbon Dioxide Anion Gap BUN Creatinine Estimated GFR POC Glucose 253 H 162 H Random Glucose Calcium 07/22/18 07/22/18 07/22/18 08:27 10:56 16:19 WBC RBC Hgb Hct MCV MCH MCHC RDW Plt Count MPV Neut % (Auto) Lymph % (Auto) [place] % (Auto) Eos % (Auto) Baso % (Auto) Neut # (Auto) Lymph # (Auto) [place] # (Auto) Eos # (Auto) Baso # (Auto) WBC Differential Differential Comment Sodium 140 Potassium 4.2 Chloride 106 Carbon Dioxide 28.2 Anion Gap 6 BUN 23 H Creatinine 0.68 Estimated GFR Greater than 89 POC Glucose 250 H 171 H Random Glucose 152 H Calcium 8.4 L Microbiology 07/20/18 14:17 Sputum - Oral Tracheal Aspirate Gram Stain - Final 07/20/18 14:17 Sputum - Oral Tracheal Aspirate Sputum Culture - Final Heavy growth normal respiratory [place] 07/19/18 16:22 Blood - Peripheral Aerobic Blood Culture - Preliminary No growth in 3 days 07/19/18 16:22 Blood - Peripheral Anaerobic Blood Culture - Preliminary No growth in 3 days 07/19/18 16:16 Blood - Peripheral Aerobic Blood Culture - Preliminary No growth in 3 days 07/19/18 16:16 Blood - Peripheral Anaerobic Blood Culture - Preliminary No growth in 3 days - Imaging Impressions Chest X-Ray 07/22/18 00:00 CONCLUSION: Improving right lower lung infiltrate compared to the prior study. COPD. - Procedures NONE Assessment and Plan - Assessment (1) Urinary calculi Code(s): N20.9 - Urinary calculus, unspecified Status: Acute (2) COPD with acute exacerbation Code(s): J44.1 - Chronic obstructive pulmonary disease with (acute) exacerbation Status: Acute (3) Acute respiratory distress Code(s): R06.03 - Acute respiratory distress Status: Acute - Plan Mr. Nelson is a 67 yo M with: Respiratory Pneumonia Patient presented in respiratory failure Impression: On 4L NC O2; generally uses [address] Chest 07/16- bilateral infiltrates greater R lobe; not changed. Atelectasis in RLL anteriorly. 6mm nodule LLL. Coronary calcifications. Severe emphysema CXR 07/19- severe emphysemal RLL airspace disease Sputum culture pending -Pulmonology consulted -Continue O2 -Continue Solumedrol; will wean to 40mg q8hrs -Continue duonebs, budesonide nebs as needed; patient encouraged to use inhalers instead of Nebulizers to achieve full treatment since concern he is not using full neb treatments -Continue Acapella, IS -Continue Mucinex -Continue antibiotics -Levaquin 750mg daily -Zosyn resumed 07/19 -Continue PT; increase activity -Continue BiPAP as needed -repeat CXR 07/22 showed improving infiltrates. -IVF stopped due to fluid overload on exam of LE's today Nephrolithiasis Impression: Patient has a long-standing history of recurrent nephrolithiasis, multiple kidney stones in both kidneys He presented with gross hematuria, CT shows 14 mm stone in the ureteropelvic junction Urine culture negative 07/14 and 07/19 Urinary tract US 07/20- echogenic kidneys with partially obstructing 1 cm stone left renal pelvis -Urology consulted-no intervention needed at this time; plan for outpatient management. If fever or pain hard to control, nephrostomy per IR recommended -Continue Levaquin -Will repeat Urinary tract US if pain persistent or worsening Diabetes mellitus Impression: A1C 8.2 Continue Levemir nightly Continue sliding-scale coverage with Accu-Cheks Continue 1800-calorie diabetic diet Anxiety, dyslipidemia, tobacco dependency Continue diazepam, atorvastatin, Chantix Patient met with patient during hospitalization DVT Prophylaxis Heparin Discharge Planning: Pending respiratory improvement/discharge planning
[2018-07-22] MEDS: Montelukast 10 MG Tablet PO SCH (20:40)
[2018-07-23] MEDS: MethylPREDNISolone Sod Succinate Inj 40 MG/ML Vial IV.PUSH SCH ×3 (04:40→20:32)
[2018-07-23] MEDS: Heparin - SQ 10,000 UNITS/ML Vial SQ SCH ×3 (04:41→20:32)
[2018-07-23] MEDS: Piperacil/Tazo 3.375 GM Premix 50 ML IV.SIG SCH ×3 (04:41→17:33)
[2018-07-23] MEDS: diazePAM 5 MG Tablet PO SCH ×3 (06:23→23:46)
[2018-07-23 07:29] LABS: Anion Gap 7 meq/L (5-15); Blood Urea Nitrogen 27 mg/dL (7-18); Calcium 8.6 mg/dL (8.5-10.1); Carbon Dioxide 30.5 meq/L (21.0-32.0); Chloride 103 meq/L (98-107); Glomerular Filtration Rate Greater Than 89 mL/min (>89); Glucose,Random 145 mg/dL (74-106); Potassium 3.9 meq/L (3.5-5.1); Sodium 140 meq/L (136-145)
--- NOTE | 2018-07-23 08:31 | P.PN ---
Subjective Interval history: ALERT NO SOB AT REST Physical Exam Vital signs: Vital Signs 07/22/18 12:00 07/22/18 12:06 07/22/18 12:41 Temperature 98.0 F Pulse Rate 88 103 H 82 Respiratory Rate 18 20 Blood Pressure 103/56 L Pulse Oximetry 95 07/22/18 16:00 07/22/18 18:27 07/22/18 19:55 Temperature 97.7 F Pulse Rate 90 101 H 116 H Respiratory Rate 22 25 H Blood Pressure 137/84 Pulse Oximetry 95 07/22/18 20:00 07/22/18 20:52 07/23/18 00:00 Temperature 97.8 F 97.7 F Pulse Rate 107 H 98 H Respiratory Rate 18 18 Blood Pressure 134/78 114/65 Pulse Oximetry 93 L 94 L 97 07/23/18 00:20 07/23/18 02:00 07/23/18 04:00 Temperature 97.6 F Pulse Rate 94 H 94 H Respiratory Rate 18 18 18 Blood Pressure 103/69 Pulse Oximetry 96 07/23/18 04:12 Temperature Pulse Rate 97 H Respiratory Rate 18 Blood Pressure Pulse Oximetry Intake & Output 07/22/18 07/23/18 07/23/18 18:59 06:59 18:59 Intake Total 600 / 600 250 / 250 Output Total 1400 / 1400 1400 / 1400 Balance -800 / -800 -1150 / -1150 Weight 72.3 kg Intake: IV 100 / 100 250 / 250 Levaquin 750 mg Premix Inj 150 150 / 150 ML @ 100 mls/hr IV.SIG Q24H [facility] Rx#:[id number] Zosyn 3.375 GM Premix 50 ML @ 100 / 100 100 / 100 100 mls/hr IV.SIG Q6H EVGENY Rx#: [id number] Oral 500 / 500 Output: Urine 1400 / 1400 1400 / 1400 Other: Date of Last Bowel Movement 07/21/18 # Bowel Movements 0 Narrative: GENERAL: Well-nourished, well-developed adult male in no obvious distress. SKIN: Warm and dry. HEAD: Atraumatic. Normocephalic. CARDIOVASCULAR: Regular rate and rhythm. RESPIRATORY: Accessory muscle use; tripoding. Wheezes bilateral. GASTROINTESTINAL: Abdomen soft, non-tender, non-distended. Positive bowel sounds. MUSCULOSKELETAL: No obvious deformities. Generalized edema bilateral ankles greater right than left. NEUROLOGICAL: Awake and alert. No obvious cranial nerve deficits. Motor grossly within normal limits. Normal speech. PSYCHIATRIC: Appropriate mood and affect; insight and judgment good. Results - Labs CBC & Chem 7: 07/22/18 08:27 07/23/18 06:12 Laboratory Results - last 24 hr 07/22/18 07/22/18 07/22/18 08:27 08:27 10:56 WBC 10.7 RBC 3.80 L Hgb 10.2 L Hct 30.4 L MCV 80.1 MCH 26.8 L MCHC 33.4 RDW 16.8 Plt Count 265 MPV 8.1 Neut % (Auto) 89.8 H Lymph % (Auto) 3.9 L [place] % (Auto) 6.2 Eos % (Auto) 0.0 Baso % (Auto) 0.1 Neut # (Auto) 9.6 H Lymph # (Auto) 0.4 L [place] # (Auto) 0.7 Eos # (Auto) 0.0 Baso # (Auto) 0.0 WBC Differential . Differential Comment Auto diff final Sodium 140 Potassium 4.2 Chloride 106 Carbon Dioxide 28.2 Anion Gap 6 BUN 23 H Creatinine 0.68 Estimated GFR Greater than 89 POC Glucose 250 H Random Glucose 152 H Calcium 8.4 L 07/22/18 07/22/18 07/23/18 16:19 20:30 06:12 WBC RBC Hgb Hct MCV MCH MCHC RDW Plt Count MPV Neut % (Auto) Lymph % (Auto) [place] % (Auto) Eos % (Auto) Baso % (Auto) Neut # (Auto) Lymph # (Auto) [place] # (Auto) Eos # (Auto) Baso # (Auto) WBC Differential Differential Comment Sodium 140 Potassium 3.9 Chloride 103 Carbon Dioxide 30.5 Anion Gap 7 BUN 27 H Creatinine 0.83 Estimated GFR Greater than 89 POC Glucose 171 H 316 H Random Glucose 145 H Calcium 8.6 Microbiology 07/20/18 14:17 Sputum - Oral Tracheal Aspirate Gram Stain - Final 07/20/18 14:17 Sputum - Oral Tracheal Aspirate Sputum Culture - Final Heavy growth normal respiratory octavia 07/19/18 16:22 Blood - Peripheral Aerobic Blood Culture - Preliminary No growth in 3 days 07/19/18 16:22 Blood - Peripheral Anaerobic Blood Culture - Preliminary No growth in 3 days 07/19/18 16:16 Blood - Peripheral Aerobic Blood Culture - Preliminary No growth in 3 days 07/19/18 16:16 Blood - Peripheral Anaerobic Blood Culture - Preliminary No growth in 3 days - Imaging Impressions Chest X-Ray 07/22/18 00:00 CONCLUSION: Improving right lower lung infiltrate compared to the prior study. COPD. - Procedures NONE Assessment and Plan - Plan IMPRESSION COPD RESPIRATORY FAILURE PLAN O2 ANTIBX BRONCHODILATORS INCREASE ACTIVITY HOME SOON
[2018-07-23] MEDS: Varenicline 1 MG Tablet PO SCH ×2 (08:47→20:31)
[2018-07-23] MEDS: Dicyclomine 10 MG Capsule PO SCH ×4 (08:47→20:31)
[2018-07-23] MEDS: Famotidine 20 MG Tablet PO SCH ×2 (08:47→20:31)
[2018-07-23] MEDS: Senna/Docusate Sodium 8.6/50 MG Tablet PO SCH ×2 (08:47→20:31)
[2018-07-23] MEDS: guaiFENesin 600 MG ER Tablet PO SCH ×2 (08:47→20:31)
[2018-07-23] MEDS: Insulin Detemir Inj 1,000 UNIT/10 ML Vial SQ SCH ×4 (08:48→20:48)
[2018-07-23] MEDS: Insulin NovoLOG Aspart Correctional Sugar Inj SQ SCH ×4 (09:54→20:49)
[2018-07-23] MEDS: Budesonide-Formoterol 160/4.5 MCG 6 GM Inhaler INH SCH ×2 (09:55→20:34)
--- NOTE | 2018-07-23 18:53 | P.PN ---
Subjective Interval history: Patient is seen lying in bed. His daughter is at bedside. He reports that he is breathing much better today. No chest pain. No nausea vomiting or diarrhea. No fever or chills. He does continue to produce franco colored sputum. Physical Exam Vital signs: Vital Signs 07/22/18 19:55 07/22/18 20:00 07/22/18 20:52 Temperature 97.8 F Pulse Rate 116 H 107 H Respiratory Rate 25 H 18 Blood Pressure 134/78 Pulse Oximetry 93 L 94 L 07/23/18 00:00 07/23/18 00:20 07/23/18 02:00 Temperature 97.7 F Pulse Rate 98 H 94 H Respiratory Rate 18 18 18 Blood Pressure 114/65 Pulse Oximetry 97 07/23/18 04:00 07/23/18 04:12 07/23/18 08:00 Temperature 97.6 F 97.4 F L Pulse Rate 94 H 97 H 102 H Respiratory Rate 18 18 19 Blood Pressure 103/69 120/71 Pulse Oximetry 96 96 07/23/18 11:49 07/23/18 11:55 07/23/18 12:00 Temperature 97.8 F Pulse Rate 102 H 102 H 87 Respiratory Rate 18 18 Blood Pressure 104/67 Pulse Oximetry 96 07/23/18 15:37 07/23/18 15:38 07/23/18 16:00 Temperature 97.8 F Pulse Rate 87 101 H Respiratory Rate 18 20 Blood Pressure 115/63 Pulse Oximetry 96 92 L Intake & Output 07/22/18 07/23/18 07/23/18 18:59 06:59 18:59 Intake Total 600 / 600 250 / 250 1010 / 1010 Output Total 1400 / 1400 1400 / 1400 900 / 900 Balance -800 / -800 -1150 / -1150 110 / 110 Weight 72.3 kg Intake: IV 100 / 100 250 / 250 50 / 50 Levaquin 750 mg Premix Inj 150 150 / 150 ML @ 100 mls/hr IV.SIG Q24H [facility] Rx#:[id number] Zosyn 3.375 GM Premix 50 ML @ 100 / 100 100 / 100 50 / 50 100 mls/hr IV.SIG Q6H [facility]GENY Rx#: [id number] Oral 500 / 500 960 / 960 Output: Urine 1400 / 1400 1400 / 1400 900 / 900 Other: # Voids 2 Date of Last Bowel Movement 07/21/18 07/21/18 # Bowel Movements 0 Narrative: GENERAL: Well-nourished, well-developed adult male in no obvious distress. SKIN: Warm and dry. HEAD: Atraumatic. Normocephalic. CARDIOVASCULAR: Regular rate and rhythm. RESPIRATORY: Accessory muscle use. clear bilateral. GASTROINTESTINAL: Abdomen soft, non-tender, non-distended. Positive bowel sounds. MUSCULOSKELETAL: No obvious deformities. Generalized edema bilateral ankles greater right than left. NEUROLOGICAL: Awake and alert. No obvious cranial nerve deficits. Motor grossly within normal limits. Normal speech. PSYCHIATRIC: Appropriate mood and affect; insight and judgment good. Results - Labs CBC & Chem 7: 07/22/18 08:27 07/23/18 06:12 Laboratory Results - last 24 hr 07/22/18 07/23/18 07/23/18 20:30 06:12 08:46 Sodium 140 Potassium 3.9 Chloride 103 Carbon Dioxide 30.5 Anion Gap 7 BUN 27 H Creatinine 0.83 Estimated GFR Greater than 89 POC Glucose 316 H 187 H Random Glucose 145 H Calcium 8.6 07/23/18 07/23/18 12:21 17:26 Sodium Potassium Chloride Carbon Dioxide Anion Gap BUN Creatinine Estimated GFR POC Glucose 230 H 316 H Random Glucose Calcium Microbiology 07/19/18 16:22 Blood - Peripheral Aerobic Blood Culture - Preliminary No growth in 4 days 07/19/18 16:22 Blood - Peripheral Anaerobic Blood Culture - Preliminary No growth in 4 days 07/19/18 16:16 Blood - Peripheral Aerobic Blood Culture - Preliminary No growth in 4 days 07/19/18 16:16 Blood - Peripheral Anaerobic Blood Culture - Preliminary No growth in 4 days - Procedures NONE Assessment and Plan - Assessment (1) Urinary calculi Code(s): N20.9 - Urinary calculus, unspecified Status: Acute (2) COPD with acute exacerbation Code(s): J44.1 - Chronic obstructive pulmonary disease with (acute) exacerbation Status: Acute (3) Acute respiratory distress Code(s): R06.03 - Acute respiratory distress Status: Acute - Plan Mr. Nelson is a 67 yo M with: Respiratory Pneumonia Patient presented in respiratory failure Impression: On 4L NC O2; generally uses [address] Chest 07/16- bilateral infiltrates greater R lobe; not changed. Atelectasis in RLL anteriorly. 6mm nodule LLL. Coronary calcifications. Severe emphysema CXR 07/19- severe emphysemal RLL airspace disease Sputum culture pending -Pulmonology consulted -Continue O2 -Continue Solumedrol; will wean to 40mg q8hrs -we will discharge with prednisone taper and return to daily 5mg dose. -Continue duonebs, budesonide nebs as needed; patient encouraged to use inhalers instead of Nebulizers to achieve full treatment since concern he is not using full neb treatments -Continue Acapella, IS -Continue Mucinex -Continue antibiotics -Levaquin 750mg daily -Zosyn resumed 07/19 -will stop abx prior to discharge -Continue PT; increase activity -Continue BiPAP as needed -repeat CXR 07/22 showed improving infiltrates. -IVF stopped due to fluid overload Nephrolithiasis Impression: Patient has a long-standing history of recurrent nephrolithiasis, multiple kidney stones in both kidneys He presented with gross hematuria, CT shows 14 mm stone in the ureteropelvic junction Urine culture negative 07/14 and 07/19 Urinary tract US 07/20- echogenic kidneys with partially obstructing 1 cm stone left renal pelvis -Urology consulted-no intervention needed at this time; plan for outpatient management. If fever or pain hard to control, nephrostomy per IR recommended -Continue Levaquin -Will repeat Urinary tract US if pain persistent or worsening Diabetes mellitus Impression: A1C 8.2 Continue Levemir nightly Continue sliding-scale coverage with Accu-Cheks Continue 1800-calorie diabetic diet Anxiety, dyslipidemia, tobacco dependency Continue diazepam, atorvastatin, Chantix Patient met with patient during hospitalization DVT Prophylaxis Heparin Discharge Planning: Likely discharge to rehab
[2018-07-23] MEDS: Montelukast 10 MG Tablet PO SCH (20:31)
[2018-07-24] MEDS: Piperacil/Tazo 3.375 GM Premix 50 ML IV.SIG SCH ×4 (00:05→17:00)
[2018-07-24] MEDS: MethylPREDNISolone Sod Succinate Inj 40 MG/ML Vial IV.PUSH SCH ×3 (05:41→21:07)
[2018-07-24] MEDS: Heparin - SQ 10,000 UNITS/ML Vial SQ SCH ×3 (05:42→21:11)
[2018-07-24] MEDS: diazePAM 5 MG Tablet PO SCH ×3 (06:22→23:59)
[2018-07-24] MEDS: guaiFENesin 600 MG ER Tablet PO SCH ×2 (08:01→21:09)
[2018-07-24] MEDS: Dicyclomine 10 MG Capsule PO SCH ×4 (08:02→21:09)
[2018-07-24] MEDS: Famotidine 20 MG Tablet PO SCH ×2 (08:02→21:09)
[2018-07-24] MEDS: Varenicline 1 MG Tablet PO SCH ×2 (08:02→21:10)
[2018-07-24] MEDS: Senna/Docusate Sodium 8.6/50 MG Tablet PO SCH ×2 (08:02→21:14)
[2018-07-24] MEDS: Insulin Detemir Inj 1,000 UNIT/10 ML Vial SQ SCH ×4 (08:06→21:11)
[2018-07-24] MEDS: Insulin NovoLOG Aspart Correctional Sugar Inj SQ SCH ×4 (08:06→21:11)
--- NOTE | 2018-07-24 08:18 | P.PN ---
Subjective Interval history: alert no sob at rest Physical Exam Vital signs: Vital Signs 07/23/18 11:49 07/23/18 11:55 07/23/18 12:00 Temperature 97.8 F Pulse Rate 102 H 102 H 87 Respiratory Rate 18 18 Blood Pressure 104/67 Pulse Oximetry 96 07/23/18 15:37 07/23/18 15:38 07/23/18 16:00 Temperature 97.8 F Pulse Rate 87 101 H Respiratory Rate 18 20 Blood Pressure 115/63 Pulse Oximetry 96 92 L 07/23/18 19:24 07/23/18 20:00 07/23/18 23:20 Temperature 97.4 F L Pulse Rate 101 H 116 H 120 H Respiratory Rate 20 18 22 Blood Pressure 131/71 Pulse Oximetry 91 L 07/24/18 00:00 07/24/18 03:30 07/24/18 03:38 Temperature 97.2 F L Pulse Rate 98 H 96 H Respiratory Rate 18 18 Blood Pressure 113/79 Pulse Oximetry 94 L 93 L 07/24/18 04:00 07/24/18 04:47 Temperature 97.2 F L Pulse Rate 97 H 92 H Respiratory Rate 18 Blood Pressure 104/66 Pulse Oximetry 97 Intake & Output 07/23/18 07/24/18 07/24/18 18:59 06:59 18:59 Intake Total 1010 / 1010 300 / 300 Output Total 900 / 900 Balance 110 / 110 300 / 300 Intake: IV 50 / 50 300 / 300 Levaquin 750 mg Premix Inj 150 150 / 150 ML @ 100 mls/hr IV.SIG Q24H [facility] Rx#:[id number] Zosyn 3.375 GM Premix 50 ML @ 50 / 50 150 / 150 100 mls/hr IV.SIG Q6H [facility]GENY Rx#: [id number] Oral 960 / 960 Output: Urine 900 / 900 Other: # Voids 2 Date of Last Bowel Movement 07/21/18 07/23/18 07/23/18 Narrative: GENERAL: Well-nourished, well-developed adult male in no obvious distress. SKIN: Warm and dry. HEAD: Atraumatic. Normocephalic. CARDIOVASCULAR: Regular rate and rhythm. RESPIRATORY: Accessory muscle use; tripoding. Wheezes bilateral. GASTROINTESTINAL: Abdomen soft, non-tender, non-distended. Positive bowel sounds. MUSCULOSKELETAL: No obvious deformities. Generalized edema bilateral ankles greater right than left. NEUROLOGICAL: Awake and alert. No obvious cranial nerve deficits. Motor grossly within normal limits. Normal speech. PSYCHIATRIC: Appropriate mood and affect; insight and judgment good. Results - Labs CBC & Chem 7: 07/22/18 08:27 07/23/18 06:12 Laboratory Results - last 24 hr 07/23/18 07/23/18 07/23/18 08:46 12:21 17:26 POC Glucose 187 H 230 H 316 H 07/23/18 07/24/18 20:40 07:31 POC Glucose 330 H 203 H Microbiology 07/19/18 16:22 Blood - Peripheral Aerobic Blood Culture - Preliminary No growth in 4 days 07/19/18 16:22 Blood - Peripheral Anaerobic Blood Culture - Preliminary No growth in 4 days 07/19/18 16:16 Blood - Peripheral Aerobic Blood Culture - Preliminary No growth in 4 days 07/19/18 16:16 Blood - Peripheral Anaerobic Blood Culture - Preliminary No growth in 4 days - Procedures NONE Assessment and Plan - Plan IMPRESSION COPD RESPIRATORY FAILURE PLAN O2 ANTIBX BRONCHODILATORS INCREASE ACTIVITY will sign off office 2 weeks post D/C, F/U CXRAY 2 WEEKS FOR ? PNA
[2018-07-24] MEDS: Budesonide-Formoterol 160/4.5 MCG 6 GM Inhaler INH SCH ×2 (08:50→21:15)
--- NOTE | 2018-07-24 09:22 | P.DS ---
Date of admission: 07/13/18 19:18 Primary care physician: UNKNOWN Attending physician on discharge: Papa Bose Anticipated date of discharge: 07/24/18 Brief History from admission: 67-year-old male presents for an evaluation of respiratory distress. The patient has a history of COPD and has been short of breath for several days; he received a duoneb, albuterol neb, and solumedrol prior to arrival to the ED. The patient arrived to the ED in visible distress and was placed on the BiPAP with significant improvement. No additional history is available to obtain due to respiratory distress and facemask BiPAP. Patient update on day of discharge: Patient doing well. He does have some anxiety today likely due to pending discharge. No new shortness of breath. No nausea vomiting or diarrhea. No fever or chills. DS: Diagnosis - Discharge Diagnosis (1) Urinary calculi Status: Chronic (2) COPD with acute exacerbation Status: Chronic (3) Acute respiratory distress Status: Resolved DS: Medications - Discharge Medications Prescriptions: diazepam 5 mg PO TID #9 tab hydrocodone-acetaminophen 1 tab PO Q8HR PRN #9 tab PRN Reason: Acute Pain prednisone See Taper PO DAILY #30 tab DS: Summary Hospital Course: Patient is a 67-year-old male who presented for respiratory distress. Found to have COPD exacerbation and pneumonia. Treated with steroids, Levaquin and Zosyn. Patient improved to baseline but is still debilitated and will be discharged to SNF/rehab. Incidentally found to have multiple kidney stones-patient has a long-standing history of recurrent nephrolithiasis -plan is to follow-up outpatient. - Time Spent with Patient Total time spent providing and/or coordinating discharge services: Less than 30 minutes - Quality: VTE Deep Vein Thrombosis/Pulmonary Embolism Present on Admission: No Exam Vital signs: Vital Signs 07/23/18 11:49 07/23/18 11:55 07/23/18 12:00 Temperature 97.8 F Pulse Rate 102 H 102 H 87 Respiratory Rate 18 18 Blood Pressure 104/67 Pulse Oximetry 96 07/23/18 15:37 07/23/18 15:38 07/23/18 16:00 Temperature 97.8 F Pulse Rate 87 101 H Respiratory Rate 18 20 Blood Pressure 115/63 Pulse Oximetry 96 92 L 07/23/18 19:24 07/23/18 20:00 07/23/18 23:20 Temperature 97.4 F L Pulse Rate 101 H 116 H 120 H Respiratory Rate 20 18 22 Blood Pressure 131/71 Pulse Oximetry 91 L 07/24/18 00:00 07/24/18 03:30 07/24/18 03:38 Temperature 97.2 F L Pulse Rate 98 H 96 H Respiratory Rate 18 18 Blood Pressure 113/79 Pulse Oximetry 94 L 93 L 07/24/18 04:00 07/24/18 04:47 07/24/18 07:00 Temperature 97.2 F L Pulse Rate 97 H 92 H 100 H Respiratory Rate 18 16 Blood Pressure 104/66 Pulse Oximetry 97 07/24/18 08:00 07/24/18 08:32 Temperature 97.4 F L Pulse Rate 97 H Respiratory Rate 20 Blood Pressure 99/63 L Pulse Oximetry 93 L 91 L Intake & Output 07/23/18 07/24/18 07/24/18 18:59 06:59 18:59 Intake Total 1010 / 1010 300 / 300 Output Total 900 / 900 Balance 110 / 110 300 / 300 Intake: IV 50 / 50 300 / 300 Levaquin 750 mg Premix Inj 150 150 / 150 ML @ 100 mls/hr IV.SIG Q24H [facility] Rx#:[id number] Zosyn 3.375 GM Premix 50 ML @ 50 / 50 150 / 150 100 mls/hr IV.SIG Q6H EVGENY Rx#: [id number] Oral 960 / 960 Output: Urine 900 / 900 Other: # Voids 2 Date of Last Bowel Movement 07/21/18 07/23/18 07/23/18 Narrative: GENERAL: Well-nourished, well-developed adult male in no obvious distress. SKIN: Warm and dry. HEAD: Atraumatic. Normocephalic. CARDIOVASCULAR: Regular rate and rhythm. RESPIRATORY: Accessory muscle use. clear bilateral. GASTROINTESTINAL: Abdomen soft, non-tender, non-distended. Positive bowel sounds. MUSCULOSKELETAL: No obvious deformities. Generalized edema bilateral ankles greater right than left. NEUROLOGICAL: Awake and alert. No obvious cranial nerve deficits. Motor grossly within normal limits. Normal speech. PSYCHIATRIC: Appropriate mood and affect; insight and judgment good. Results Procedures completed during hospitalization: NONE Labs on day of discharge: Labs from last 24 hours 07/24/18 07/23/18 07/23/18 07:31 20:40 17:26 POC Glucose 203 H 330 H 316 H 07/23/18 12:21 POC Glucose 230 H Preliminary micro results at discharge 07/19/18 16:22 Aerobic Blood Culture - Preliminary Blood - Peripheral No growth in 4 days Anaerobic Blood Culture - Preliminary No growth in 4 days 07/19/18 16:16 Aerobic Blood Culture - Preliminary Blood - Peripheral No growth in 4 days Anaerobic Blood Culture - Preliminary No growth in 4 days - Impressions ITS Impressions Abdomen/Pelvis CT 07/14/18 00:00 CONCLUSION: 1. Patchy basilar airspace disease with peribronchial thickening and distal airway disease. Differential diagnosis includes bronchopneumonia and aspiration. 2. 14 mm calculus at the left ureteropelvic junction with mild left hydronephrosis. No ureteral calculi. 3. Stable 4.4 cm infrarenal abdominal aortic aneurysm. Chest CT 07/16/18 00:00 CONCLUSION: 1. Bibasilar patchy infiltrates greater right lower lobe, not significantly changed. There is also some new atelectasis in the right lower lobe anteriorly compared to previous study. 2. 6 mm nodule left lower lobe. 3. Coronary artery calcifications. 4. Severe emphysema. Venous Doppler Study 07/18/18 07:00 CONCLUSION: 1. Negative for deep venous thrombosis. Abdomen/Bladder Ultrasound 07/20/18 07:00 CONCLUSION: 1. Echogenic kidneys with partially obstructing 1 cm stone left renal pelvis. Chest X-Ray 07/22/18 00:00 CONCLUSION: Improving right lower lung infiltrate compared to the prior study. COPD. Discharge Plan - Discharge Disposition Patient Disposition: Discharge to SNF - Discharge Condition Condition: Stable - Discharge Order Discharge Orders: Discharge Order (Routine); Ordered 07/24/18 Ordered By: Jovana Flannery - Discharge Details Discharge Comment: [facility] Prescription Drug Monitoring Database has been queried and verified prior to prescribing the controlled substance. - Physicians Team Primary Care Provider: UNKNOWN, Attending Provider: Papa Bose Other Providers: Alan Salmeron MD ; Chuck Velazqueza ; Billy Orozco MD ; Pepito Edmonds MD ; Breann Gomez MD
[2018-07-24] MEDS: Montelukast 10 MG Tablet PO SCH (21:09)
[2018-07-25] MEDS: Heparin - SQ 10,000 UNITS/ML Vial SQ SCH ×2 (05:55→12:06)
[2018-07-25] MEDS: Piperacil/Tazo 3.375 GM Premix 50 ML IV.SIG SCH ×3 (06:00→10:29)
[2018-07-25] MEDS: diazePAM 5 MG Tablet PO SCH (06:00)
[2018-07-25] MEDS: guaiFENesin 600 MG ER Tablet PO SCH (08:19)
[2018-07-25] MEDS: Varenicline 1 MG Tablet PO SCH (08:19)
[2018-07-25] MEDS: Dicyclomine 10 MG Capsule PO SCH ×2 (08:19→12:06)
[2018-07-25] MEDS: Insulin NovoLOG Aspart Correctional Sugar Inj SQ SCH ×2 (08:20→12:07)
[2018-07-25] MEDS: Senna/Docusate Sodium 8.6/50 MG Tablet PO SCH (08:20)
[2018-07-25] MEDS: Famotidine 20 MG Tablet PO SCH (08:20)
[2018-07-25] MEDS: Insulin Detemir Inj 1,000 UNIT/10 ML Vial SQ SCH ×2 (08:20→12:07)
[2018-07-25] MEDS ORDERED: predniSONE 5 MG Tablet PO SCH (09:00)
[2018-07-25 10:17] VITALS: BP 120/72; TEMP 97.6; O2SAT 97
--- NOTE | 2018-07-25 11:21 | P.DCO ---
- Diagnosis (7) Dyspnea - Physical Therapy Order: Evaluate and treat, Improve ambulation, Strength and gait training - Home Health Nursing Order: Medical education, Signs/symptoms of disease process, Oxygen administration education, Medication education-adverse effect, Nursing assessment with vital signs - Case Management Consult No - Certification I have seen patient Tunde Nelson on 07/25/18. My clinical findings support the need for the requested home health care services because: Limited mobility due to disease progression, Patient has SOB, Deconditioned with increased weakness, Medication compliance is questionable, Limited ability to care for self, High risk of falls I certify that my clinical findings support that this patient is homebound because: Hx COPD - exertion dyspnea/weakness, Unsteady gait/balance, Unsafe to leave home unassisted (7) Dyspnea Qualifiers: Dyspnea type: shortness of breath Qualified Code(s): R06.02 - Shortness of breath; R06.00 - Dyspnea, unspecified; R06.01 - Orthopnea
--- NOTE | 2018-07-25 11:32 | P.PN ---
Subjective Interval history: Patient discharged yesterday to rehab. Insurance will not authorize, pending peer to peer. Discussed with patient and son today. Patient would like to go home rather than rehab and son agrees that he can help care for him there. Patient is fairly adamant about not wanting to go to rehab at this point in time. Physical Exam Vital signs: Vital Signs 07/24/18 11:31 07/24/18 12:00 07/24/18 12:34 Temperature 98.3 F Pulse Rate 113 H 114 H 124 H Respiratory Rate 16 22 Blood Pressure 113/73 Pulse Oximetry 93 L 07/24/18 15:00 07/24/18 16:00 07/24/18 19:56 Temperature 97.8 F Pulse Rate 107 H 109 H 114 H Respiratory Rate 16 22 22 Blood Pressure 114/76 Pulse Oximetry 95 93 L 07/24/18 20:00 07/25/18 00:00 07/25/18 00:11 Temperature 98 F 97.1 F L Pulse Rate 118 H 106 H 113 H Respiratory Rate 22 18 20 Blood Pressure 136/78 Pulse Oximetry 93 L 96 07/25/18 03:40 07/25/18 04:00 07/25/18 07:31 Temperature 97.2 F L Pulse Rate 102 H 99 H 100 H Respiratory Rate 18 18 16 Blood Pressure 132/72 Pulse Oximetry 95 91 L 07/25/18 08:00 Temperature 97.6 F Pulse Rate 104 H Respiratory Rate 17 Blood Pressure 120/72 Pulse Oximetry 97 Intake & Output 07/24/18 07/25/18 07/25/18 18:59 06:59 18:59 Intake Total 650 / 650 300 / 300 Output Total 325 / 325 1000 / 1000 Balance 325 / 325 -700 / -700 Weight 72.3 kg Intake: IV 50 / 50 300 / 300 Levaquin 750 mg Premix Inj 150 150 / 150 ML @ 100 mls/hr IV.SIG Q24H EVGENY Rx#:[id number] Zosyn 3.375 GM Premix 50 ML @ 50 / 50 150 / 150 100 mls/hr IV.SIG Q6H EVGENY Rx#: [id number] Oral 600 / 600 Output: Urine 325 / 325 1000 / 1000 Other: # Voids 1 Date of Last Bowel Movement 07/23/18 Results - Labs CBC & Chem 7: 09/25/18 08:27 07/23/18 06:12 Laboratory Results - last 24 hr 07/24/18 07/24/18 07/24/18 12:26 17:38 17:50 POC Glucose 222 H 258 H 278 H 07/24/18 07/25/18 20:25 07:45 POC Glucose 389 H 255 H Microbiology 07/19/18 16:22 Blood - Peripheral Aerobic Blood Culture - Final No growth in 5 days 07/19/18 16:22 Blood - Peripheral Anaerobic Blood Culture - Final No growth in 5 days 07/19/18 16:16 Blood - Peripheral Aerobic Blood Culture - Final No growth in 5 days 07/19/18 16:16 Blood - Peripheral Anaerobic Blood Culture - Final No growth in 5 days - Procedures NONE Assessment and Plan - Assessment (1) Requires assistance with activities of daily living (ADL) Code(s): Z74.1 - Need for assistance with personal care Status: Acute (2) Impaired mobility and ADLs Code(s): Z74.09 - Other reduced mobility Status: Acute (3) Unstable gait Code(s): R26.81 - Unsteadiness on feet Status: Acute (4) Weakness generalized Code(s): R53.1 - Weakness Status: Acute (5) COPD with acute exacerbation Code(s): J44.1 - Chronic obstructive pulmonary disease with (acute) exacerbation Status: Chronic (6) Pain Code(s): R52 - Pain, unspecified Status: Acute (7) Dyspnea Code(s): R06.00 - Dyspnea, unspecified Status: Acute (8) Acute respiratory distress Code(s): R06.03 - Acute respiratory distress Status: Resolved (9) Urinary calculi Code(s): N20.9 - Urinary calculus, unspecified Status: Chronic - Plan Mr. Nelson is a 67 yo M with: Respiratory Pneumonia Patient presented in respiratory failure Impression: On 4L NC O2; generally uses [address] Chest 07/16- bilateral infiltrates greater R lobe; not changed. Atelectasis in RLL anteriorly. 6mm nodule LLL. Coronary calcifications. Severe emphysema CXR 07/19- severe emphysemal RLL airspace disease Sputum culture pending -Pulmonology consulted -Continue O2 -Continue Solumedrol; will wean to 40mg q8hrs -we will discharge with prednisone taper and return to daily 5mg dose. -Continue duonebs, budesonide nebs as needed; patient encouraged to use inhalers instead of Nebulizers to achieve full treatment since concern he is not using full neb treatments -Continue Acapella, IS -Continue Mucinex -Continue antibiotics -Levaquin 750mg daily -Zosyn resumed 07/19 -will stop abx prior to discharge -Continue PT; increase activity -Continue BiPAP as needed -repeat CXR 07/22 showed improving infiltrates. -IVF stopped due to fluid overload Nephrolithiasis Impression: Patient has a long-standing history of recurrent nephrolithiasis, multiple kidney stones in both kidneys He presented with gross hematuria, CT shows 14 mm stone in the ureteropelvic junction Urine culture negative 07/14 and 07/19 Urinary tract US 07/20- echogenic kidneys with partially obstructing 1 cm stone left renal pelvis -Urology consulted-no intervention needed at this time; plan for outpatient management. If fever or pain hard to control, nephrostomy per IR recommended -Continue Levaquin -Will repeat Urinary tract US if pain persistent or worsening Diabetes mellitus Impression: A1C 8.2 Continue Levemir nightly Continue sliding-scale coverage with Accu-Cheks Continue 1800-calorie diabetic diet Anxiety, dyslipidemia, tobacco dependency Continue diazepam, atorvastatin, Chantix Patient met with patient during hospitalization DVT Prophylaxis Heparin Discharge Planning: Likely discharge to rehab (7) Dyspnea Qualifiers: Dyspnea type: shortness of breath Qualified Code(s): R06.02 - Shortness of breath; R06.00 - Dyspnea, unspecified; R06.01 - Orthopnea
[2018-07-25 11:46] VITALS: PULSE 114; RESP 16
== END 2018-07-25 14:28 | disposition home health service (06) ==
LOC: NEPE 17:04 → NEDA 19:18 → N03 22:45 → N05 07-15 16:44
PROVIDERS: ADMIT Hospitalist; ATTEND Hospitalist

== ENCOUNTER 2018-10-07 20:41 | Inpatient (IN) ==
[2018-10-07 21:27] VITALS: TEMP 97.7
[2018-10-07] MEDS ORDERED: Ketorolac Inj 30 MG/ML (IVP) Vial IV.PUSH ONE (21:32)
[2018-10-07] MEDS ORDERED: Morphine Inj 4 MG/ML Vial IV.PUSH ONE (21:32)
[2018-10-07] MEDS ORDERED: Sodium Chlor 0.9% Inj 500 ML IV.SIG SCH (22:00)
--- NOTE | 2018-10-07 22:13 | XR ---
EXAM DATE: 10/07/2018 10:06 PM EST AGE/SEX: 68 years / Male INDICATIONS: Short of breath. CLINICAL DATA: This is the patient's initial encounter. Patient reports that signs and symptoms have been present for 1 day and indicates a pain score of 0/10. MEDICAL/SURGICAL HISTORY: Chronic obstructive pulmonary disease. None. COMPARISON: [facility], CHEST 1V SINGLE AP, 10/02/2018. . FINDINGS: A single AP view of the chest demonstrates hyperinflation with minimal bibasilar densities. Heart enl arged. The cardiomediastinal contours are unremarkable. Osseous structures are intact. CONCLUSION: COPD with minimal bibasilar densities, improved from previous study. Electronically signed by: Papa Matt MD 10/07/2018 10:12 PM EST
--- NOTE | 2018-10-07 22:27 | CT ---
EXAM DATE: 10/07/2018 10:18 PM EST AGE/SEX: 68 years / Male INDICATIONS: Right flank pain. CLINICAL DATA: This is the patient's initial encounter. Patient reports that signs and symptoms have been present for 1 day and indicates a pain score of 10/10. MEDICAL/SURGICAL HISTORY: Renal calculi. Diabetes. Hypertension. COPD. None. RADIATION DOSE: 11.56 CTDI (mGy) COMPARISON: [facility], CT ABDOMEN & PELVIS W/O CONTRAST, 10/02/2018. . TECHNIQUE: Multiple contiguous axial images were obtained through the abdomen. Images were obtained using multiple row detector helical technique. Using automated exposure control and adjustment of the mA and/or kV according to patient size, radiation dose was kept as low as reasonably achievable to o btain optimal diagnostic quality images. DICOM format image data is available electronically for rev iew and comparison. FINDINGS: Lower Lungs: Bibasilar densities greater right lower lobe. Liver: The liver has a homogeneous density without space-occupying lesion. There is no dilation of th e biliary tree. Spleen: Homogeneous density without enlargement. Pancreas: Unremarkable without mass or calcification. Kidneys: Normal in size and shape. No evidence of mass or hydronephrosis. 15 mm calculus in the left renal pelvis with slight inflammatory changes and slight prominence of the renal pelvis. Small right renal low densities. Adrenal Glands: Unremarkable. Aorta: Atherosclerotic changes and aneurysmal dilatation of the infrarenal abdominal aorta measuring 4.7 cm. Bowel/Mesentery: Copious amount of stool. No bowel obstruction. Normal appendix. Abdominal Wall: Intact. Retroperitoneum: No evidence of adenopathy in the retrocrural, para-aortic, or deep pelvic regions. Bladder: Contours are smooth. Reproductive Organs: No abnormal masses or calcifications seen. Inguinal: The inguinal region is unremarkable without evidence of adenopathy. Bony Structures: Unremarkable. CONCLUSION: 1. Infrarenal abdominal aortic aneurysm measures 4.7 cm, not significantly changed. 2. 15 mm calculus in the left renal pelvis with minimal inflammatory changes, stable. 3. No right-sided renal calculi or hydronephrosis. 4. Right renal low-density, likely benign. Electronically signed by: Papa Matt MD 10/07/2018 10:25 PM EST
--- NOTE | 2018-10-07 23:19 | ED ---
HPI General Chief complaint: Abdominal Pain Stated complaint: SOB Complaint Time Seen by Provider: 10/07/18 21:29 Source: patient Mode of arrival: ambulatory Limitations: no limitations History of Present Illness HPI narrative: Patient is a 68 year old male who comes in complaining of left flank pain, which he says got acutely worse at 5PM. He was here a few days ago for the same thing, where he was also found to have pneumonia. He signed out AMA at that time. He says he has not been taking anything for his pain. He wears oxygen at home for his COPD. He denies any worsening of his SOB. He denies chest pain, fever, chills, nausea or vomiting. Severity is moderate. Related Data Home Medications Medication Instructions Recorded Confirmed aspirin [Aspirin Low Dose] 81 mg PO DAILY 07/13/18 10/08/18 atorvastatin 80 mg PO DAILY 07/13/18 10/08/18 dicyclomine 10 mg PO QID 07/13/18 10/08/18 metformin 1,000 mg PO BID 07/13/18 10/08/18 prednisone 10 mg PO DAILY 07/13/18 10/08/18 Previous Rx's Medication Instructions Recorded albuterol sulfate [Ventolin HFA] 2 puff INH Q4H PRN g 07/24/18 budesonide-formoterol [Symbicort] 1 puff INH BID g 07/24/18 diazepam 5 mg PO TID #9 tab 07/24/18 ipratropium-albuterol 1 amp NEB Q4HR NEB ml 07/24/18 montelukast 10 mg PO HS tab 07/24/18 prednisone See Taper PO DAILY #30 tab 07/24/18 albuterol sulfate [Ventolin HFA] 2 inh INHALATION Q4H PRN #8 g 10/02/18 hydrocodone-acetaminophen 1 tab PO Q6H PRN #10 tab 10/02/18 levofloxacin 750 mg PO DAILY 7 Days #7 tab 10/02/18 Allergies Allergy/AdvReac Type Severity Reaction Status Date / Time No Known Allergies Allergy Verified 10/07/18 21:22 Review of Systems ROS: all other systems reviewed are negative Constitutional Denies chills and Denies fever(s) ENT Denies dizziness Cardiovascular Denies chest pain Respiratory Reports cough Gastrointestinal Denies abdominal pain, Denies nausea and Denies vomiting Musculoskeletal Denies myalgias and Denies arthralgias Integumentary/Breasts Denies sores and Denies wounds Neurologic Denies focal weakness and Denies numbness [facility] Medical History Medical History COPD (chronic obstructive pulmonary disease) (Acute) Diabetes (Acute) HTN (hypertension) (Acute) High cholesterol (Acute) Surgical History Surgical History H/O left knee surgery (Acute) History of renal stent (Acute) Hx of tonsillectomy (Acute) Family History Family History Father Alcoholism in family Brother COPD (chronic obstructive pulmonary disease) Social History Social History Substance History: No History of Abuse Second Hand Smoke Exposure: Yes Smoking Status: Current every day smoker Tobacco Type: Cigarettes How Often Do You Have a Drink Containing Alcohol: Never Recent Travel in [facility] within the Last 8 Weeks: No Recent Out of Country Travel within the Last 8 Weeks: No Immunization History Tetanus Immunization: <5 Years Exam Narrative Exam Narrative: GENERAL: Awake and alert, in no acute distress. SKIN: Focused skin assessment warm/dry. HEAD: Atraumatic. Normocephalic. EYES: Pupils equal and round. No scleral icterus. No injection or drainage. ENT: No nasal bleeding or discharge. Mucous membranes pink and moist. NECK: Trachea midline. No JVD. CARDIOVASCULAR: Regular rate and rhythm. No murmur appreciated. RESPIRATORY: No accessory muscle use. Decreased lung sounds bilaterally. Breath sounds equal bilaterally. GASTROINTESTINAL: Abdomen soft, non-tender, nondistended. Left CVA tenderness. MUSCULOSKELETAL: No obvious deformities. No clubbing. No cyanosis. No edema. NEUROLOGICAL: Awake and alert. No obvious cranial nerve deficits. Motor grossly within normal limits. Normal speech. PSYCHIATRIC: Appropriate mood and affect; insight and judgment normal. Course Initial Documented Vital Signs Temperature 97.7 F 10/07/18 21:22 Pulse Rate 119 H 10/07/18 21:22 Respiratory Rate 24 10/07/18 21:22 Blood Pressure 121/60 10/07/18 21:22 Pulse Oximetry 96 10/07/18 21:22 Last Documented Vital Signs Temperature 97.7 F 10/07/18 21:22 Pulse Rate 119 H 10/07/18 21:22 Respiratory Rate 24 10/07/18 21:22 Blood Pressure 121/60 10/07/18 21:22 Pulse Oximetry 96 10/07/18 21:22 Medical Decision Making MDM Narrative Medical decision making narrative: PAtient is a 68 year old male who comes in complaining of left flank pain. Exam shows left CVA tenderness. Given IVF, 1 duoneb, Morphine, Toradol. CT abd/pelvis shows no new changes. 12:18 AM. Patient was seen by ED physician and signed out to me. 68-year-old male complains of persistent left flank pain and generalized malaise. Patient has history of left kidney stone. Patient was seen in the emergency room October 02 with diagnosis of kidney stone and UTI and pneumonia. Patient was given IV vancomycin and Zosyn and was advised to be admitted. Patient signed out AMA. Patient was given prescription for Levaquin 750 mg daily. Patient states that he took the medication as directed. Patient states that he had persistent left flank pain and came back this evening. Patient complains of generalized malaise and weakness. Patient denies any fever chills. Patient has history of COPD on home O2. Patient also has history hypertension, diabetes, hyperlipidemia. Patient is a smoker. Patient was seen by ED physician and signed out to me. Reviewing CT scan of the chest, chest x- ray, blood test, patient still has persistent elevated lactic acid. Patient still has UTI and improving pneumonia. Vancomycin 1 g IV given. Cefepime 1 g IV given. Patient will be admitted for IV antibiotic treatment. Medical Screen Exam Complete: Yes Emergency Medical Condition: Yes Lab Data Lab results reviewed: Yes I reviewed the patient's lab results. Result diagrams: 10/07/18 23:15 10/07/18 23:15 Lab Results 10/07/18 10/07/18 10/07/18 Range/Units 23:15 23:15 23:15 WBC 11.8 H (4.0-11.0) th/mm3 RBC 4.29 L (4.50-5.90) mil/mm3 Hgb 10.5 L (13.0-17.0) gm/dL Hct 33.5 L (39.0-51.0) % MCV 77.9 L (80.0-100.0) fL MCH 24.5 L (27.0-34.0) pg MCHC 31.5 L (32.0-36.0) % RDW 17.0 (11.6-17.2) % Plt Count 220 D (150-450) th/mm3 MPV 8.3 (7.0-11.0) fL Neut % (Auto) 95.6 H (16.0-70.0) % Lymph % (Auto) 2.8 L (9.0-44.0) % [place] % (Auto) 1.2 (0.0-8.0) % Eos % (Auto) 0.2 (0.0-4.0) % Baso % (Auto) 0.2 (0.0-2.0) % Neut # (Auto) 11.3 H (1.8-7.7) th/mm3 Lymph # (Auto) 0.3 L (1.0-4.8) th/mm3 [place] # (Auto) 0.1 (0.0-0.9) th/mm3 Eos # (Auto) 0.0 (0.0-0.4) th/mm3 Baso # (Auto) 0.0 (0.0-0.2) th/mm3 WBC Differential . Differential Comment Auto diff final Sodium 144 (136-145) meq/L Potassium 4.3 (3.5-5.1) meq/L Chloride 107 (98-107) meq/L Carbon Dioxide 27.9 (21.0-32.0) meq/L Anion Gap 9 (5-15) meq/L BUN 22 H (7-18) mg/dL Creatinine 0.92 (0.60-1.30) mg/dL Estimated GFR 81 L (>89) mL/min Random Glucose 281 H (74-106) mg/dL Lactic Acid 4.1 H* (0.4-2.0) mmol/L Calcium 8.4 L (8.5-10.1) mg/dL Magnesium 1.5 (1.5-2.5) mg/dL Total Bilirubin 0.3 (0.2-1.0) mg/dL AST 18 (15-37) U/L ALT 36 (12-78) U/L Alkaline Phosphatase 111 (45-117) U/L Total Protein 6.0 L (6.4-8.2) g/dL Albumin 2.9 L (3.4-5.0) g/dL Lipase 84 (73-393) U/L Urine Color (Yellw/Straw) Urine Clarity (Clear) Urine pH (5.0-8.5) Ur Specific [place] (1.002-1.035) Urine Protein (Neg-Trace) mg/dL Urine Glucose (UA) (Negative) mg/dL Urine Ketones (Negative) mg/dL Urine Occult Blood (Negative) Urine Nitrate (Negative) Urine Bilirubin (Negative) Urine Urobilinogen (Less than 2) mg/dL Ur Leukocyte Esterase (Negative) Urine RBC (0-3) /hpf Urine WBC (0-5) /hpf Ur Squamous Epith Cells (0-5) /hpf Calcium Oxalate Crystal (None) /hpf Urine Bacteria (None) /hpf Hyaline Casts (0-3) /lpf Urine Mucus (Occasional) /lpf Micro UA Comment Ur Microscopic Review Urine Culture Comments 10/07/18 Range/Units 23:15 WBC (4.0-11.0) th/mm3 RBC (4.50-5.90) mil/mm3 Hgb (13.0-17.0) gm/dL Hct (39.0-51.0) % MCV (80.0-100.0) fL MCH (27.0-34.0) pg MCHC (32.0-36.0) % RDW (11.6-17.2) % Plt Count (150-450) th/mm3 MPV (7.0-11.0) fL Neut % (Auto) (16.0-70.0) % Lymph % (Auto) (9.0-44.0) % [place] % (Auto) (0.0-8.0) % Eos % (Auto) (0.0-4.0) % Baso % (Auto) (0.0-2.0) % Neut # (Auto) (1.8-7.7) th/mm3 Lymph # (Auto) (1.0-4.8) th/mm3 [place] # (Auto) (0.0-0.9) th/mm3 Eos # (Auto) (0.0-0.4) th/mm3 Baso # (Auto) (0.0-0.2) th/mm3 WBC Differential Differential Comment Sodium (136-145) meq/L Potassium (3.5-5.1) meq/L Chloride (98-107) meq/L Carbon Dioxide (21.0-32.0) meq/L Anion Gap (5-15) meq/L BUN (7-18) mg/dL Creatinine (0.60-1.30) mg/dL Estimated GFR (>89) mL/min Random Glucose (74-106) mg/dL Lactic Acid (0.4-2.0) mmol/L Calcium (8.5-10.1) mg/dL Magnesium (1.5-2.5) mg/dL Total Bilirubin (0.2-1.0) mg/dL AST (15-37) U/L ALT (12-78) U/L Alkaline Phosphatase (45-117) U/L Total Protein (6.4-8.2) g/dL Albumin (3.4-5.0) g/dL Lipase (73-393) U/L Urine Color Yellow (Yellw/Straw) Urine Clarity Cloudy H (Clear) Urine pH 5.0 (5.0-8.5) Ur Specific [place] 1.022 (1.002-1.035) Urine Protein 100 H (Neg-Trace) mg/dL Urine Glucose (UA) 500 or greater (Negative) mg/dL Urine Ketones Trace H (Negative) mg/dL Urine Occult Blood Large H (Negative) Urine Nitrate Negative (Negative) Urine Bilirubin Negative (Negative) Urine Urobilinogen 0.2 (Less than 2) mg/dL Ur Leukocyte Esterase Small H (Negative) Urine RBC (0-3) /hpf Urine WBC 116 H (0-5) /hpf Ur Squamous Epith Cells 1 (0-5) /hpf Calcium Oxalate Crystal Rare H (None) /hpf Urine Bacteria Rare H (None) /hpf Hyaline Casts 3 (0-3) /lpf Urine Mucus Moderate H (Occasional) /lpf Micro UA Comment Culture indicated Ur Microscopic Review Not Reportable Urine Culture Comments Culture indicated Imaging Data Attestation: I personally reviewed and interpreted this imaging study as follows : Radiologist's impression: Abdomen/Pelvis CT 10/07/18 21:32 CONCLUSION: 1. Infrarenal abdominal aortic aneurysm measures 4.7 cm, not significantly changed. 2. 15 mm calculus in the left renal pelvis with minimal inflammatory changes, stable. 3. No right-sided renal calculi or hydronephrosis. 4. Right renal low-density, likely benign. Chest X-Ray 10/07/18 21:45 CONCLUSION: COPD with minimal bibasilar densities, improved from previous study. Discharge Plan Discharge Disposition Patient Disposition: ED Admit(ED Internal Use Only) Discharge Details Diagnosis: Pneumonia, Acute UTI, Acidosis, lactic Physicians Team ED Provider: Rhonda Colby Primary Care Provider: Do Cheryl Briseno Rxs /Orders / Referrals /Forms Prescriptions: No Action atorvastatin 80 mg Tablet 80 mg PO DAILY RF: 0 prednisone 10 mg Tablet 10 mg PO DAILY RF: 0 aspirin [Aspirin Low Dose] 81 mg Tablet,Delayed Release (Dr/Ec) 81 mg PO DAILY RF: 0 metformin 1,000 mg Tablet 1,000 mg PO BID RF: 0 dicyclomine 10 mg Capsule 10 mg PO QID RF: 0 ipratropium-albuterol 0.5 mg-3 mg(2.5 mg base)/3 mL Solution For Nebulization 1 amp NEB Q4HR NEB RF: 0 prednisone 5 mg Tablet PO DAILY Qty: 30 RF: 0 montelukast 10 mg Tablet 10 mg PO HS RF: 0 albuterol sulfate [Ventolin HFA] 90 mcg/actuation Hfa Aerosol Inhaler 2 puff INH Q4H PRN (Reason: Shortness Of Breath) RF: 0 budesonide-formoterol [Symbicort] 160-4.5 mcg/actuation Hfa Aerosol Inhaler 1 puff INH BID RF: 0 diazepam 5 mg Tablet 5 mg PO TID Qty: 9 RF: 0 levofloxacin 750 mg tablet 750 mg PO DAILY 7 Days Qty: 7 RF: 0 albuterol sulfate [Ventolin HFA] 90 mcg/actuation HFA aerosol inhaler 2 inh INHALATION Q4H PRN (Reason: shortness of breath) Qty: 8 RF: 0 hydrocodone-acetaminophen 5-325 mg tablet 1 tab PO Q6H PRN (Reason: pain) Qty: 10 RF: 0 Status ED Status: In Room
[2018-10-07 23:28] LABS: Baso % (Auto) 0.2 % (0.0-2.0); Eos % (Auto) 0.2 % (0.0-4.0); Hematocrit 33.5 % (39.0-51.0); Hemoglobin 10.5 gm/dL (13.0-17.0); Lymph # (Auto) 0.3 th/mm3 (1.0-4.8); Lymph % (Auto) 2.8 % (9.0-44.0); Mean Corpuscular HGB Conc 31.5 % (32.0-36.0); Mean Corpuscular Hemoglobin 24.5 pg (27.0-34.0); Mean Corpuscular Volume 77.9 fL (80.0-100.0); Mean Platelet Volume 8.3 fL (7.0-11.0); Mono # (Auto) 0.1 th/mm3 (0.0-0.9); Mono % (Auto) 1.2 % (0.0-8.0); Neut # (Auto) 11.3 th/mm3 (1.8-7.7); Neut % (Auto) 95.6 % (16.0-70.0); Platelet Count 220 th/mm3 (150-450); Red Blood Count 4.29 mil/mm3 (4.50-5.90); White Blood Count 11.8 th/mm3 (4.0-11.0)
[2018-10-07 23:46] LABS: Albumin 2.9 g/dL (3.4-5.0); Anion Gap 9 meq/L (5-15); Aspartate Aminotransferase 18 U/L (15-37); Blood Urea Nitrogen 22 mg/dL (7-18); Calcium 8.4 mg/dL (8.5-10.1); Carbon Dioxide 27.9 meq/L (21.0-32.0); Chloride 107 meq/L (98-107); Glomerular Filtration Rate 81 mL/min (>89); Glucose,Random 281 mg/dL (74-106); Lipase 84 U/L (73-393); Magnesium 1.5 mg/dL (1.5-2.5); Potassium 4.3 meq/L (3.5-5.1); Sodium 144 meq/L (136-145)
[2018-10-07 23:47] LABS: Alanine Aminotransferase 36 U/L (12-78)
[2018-10-07 23:49] LABS: Alkaline Phosphatase 111 U/L (45-117)
[2018-10-07 23:58] LABS: Bacteria,Urine Rare /hpf; Bilirubin,Urine Negative (Negative); Calcium Oxalate Crystals,Urine Rare /hpf; Clarity,Urine Cloudy (Clear); Color,Urine Yellow (Yellw/Straw); Glucose,Urine (UA) 500 or Greater mg/dL (Negative); Hyaline Casts,Urine 3 /lpf (0-3); Leukocyte Esterase,Urine Small (Negative); Mucus,Urine Moderate /lpf (Occasional); Nitrite,Urine Negative (Negative); Specific Gravity,Urine 1.022 (1.002-1.035); Squamous Epithelial Cell,Urine 1 /hpf (0-5)
[2018-10-08 00:05] LABS: Urobilinogen,Urine 0.2 mg/dL (Less than 2)
[2018-10-08] MEDS ORDERED: Vancomycin Inj 1,000 MG in Sodium Chlor 0.9% Inj 250 ML IV.SIG ONE (00:31)
[2018-10-08] MEDS ORDERED: Vancomycin Consult Pharmacy OTHER PRN (01:27)
[2018-10-08] MEDS ORDERED: Bisacodyl 10 MG Supp RECTAL PRN (01:28)
[2018-10-08] MEDS ORDERED: Dextrose 50% in Water 50 ML Vial IV.PUSH PRN ×2 (01:28→01:32)
[2018-10-08] MEDS ORDERED: Acetaminophen 325 MG Tablet PO PRN (01:28)
[2018-10-08] MEDS ORDERED: Sod Chloride 0.9% Inj 1,000 ML IV.CONT SCH (01:30)
[2018-10-08] MEDS ORDERED: Morphine Inj 4 MG/ML Vial IV.PUSH PRN (04:26)
[2018-10-08] MEDS ORDERED: Naloxone Inj 0.4 MG/ML Vial IV.PUSH PRN (04:26)
[2018-10-08] MEDS ORDERED: oxyCODONE/Acetaminophen 10/325 Tablet PO PRN (04:26)
[2018-10-08 05:52] VITALS: BP 122/71; PULSE 95; RESP 18
[2018-10-08 07:16] VITALS: O2SAT 98
[2018-10-08] MEDS ORDERED: Insulin NovoLOG Aspart Correctional Sugar Inj SQ SCH (08:00)
[2018-10-08] MEDS ORDERED: diazePAM 5 MG Tablet PO SCH (09:00)
[2018-10-08] MEDS ORDERED: Budesonide-Formoterol 160/4.5 MCG 6 GM Inhaler INH SCH (09:00)
[2018-10-08] MEDS ORDERED: predniSONE 10 MG Tablet PO SCH (09:00)
[2018-10-08] MEDS ORDERED: Vancomycin Inj 1,250 MG in Sodium Chlor 0.9% Inj 250 ML IV.SIG SCH (12:00)
[2018-10-08] MEDS ORDERED: Montelukast 10 MG Tablet PO SCH (21:00)
--- NOTE | 2018-10-08 22:20 | ECG ---
Date Performed: 10/07/2018 Time Performed: 21:38:38 PTAGE: 68 years EKG: SINUS TACHYCARDIA INDETERMINATE AXIS RIGHT BUNDLE BRANCH BLOCK ABNORMAL ECG PREVIOUS TRACING : 10/02/2018 19.14 Since the previous tracing, no significant change noted DOCTOR: Mark Renee Interpretating Date/Time 10/08/2018 22:19:30
[2018-10-09] MEDS ORDERED: Pharmacy Ordered Lab Info OTHER ONE (11:45)
== END 2018-10-08 13:40 | disposition left against medical advice (07) ==
LOC: NEPE 20:41 → NEDA 10-08 01:13 → NEDH 10-08 05:13
PROVIDERS: ADMIT Family Medicine; ATTEND Family Medicine
CPT/HCPCS: 71010; 71045; 74176; 80053; 81001; 82948; 82962; 83605; 83690; 83735; 85025; 87086; 93005; 94640; 94664; 94665; J0692; J1815; J1885; J2270; J3370; J7030; J7040; J7050; J7506; J7512